=== PATIENT | male | born 1975 | race Caucasian/White ===

== ENCOUNTER 2018-08-21 21:42 | Outpatient (REF) | payer MEDICARE, MEDICAID, SELFPAY ==
[2018-08-21 22:02] LABS: Absolute Eosinophil Count 0.03 k/cumm (0.0-0.7); Absolute Lymphocyte Count 0.81 k/cumm (1.2-3.4); Absolute Monocyte Count 0.31 k/cumm (0.11-0.7); Absolute Neutrophil Count 2.73 k/cumm (1.2-6.7); Eosinophils % 0.8; HCT 41.4 % (40.0-50.0); HGB 13.8 g/dL (13.5-17.5); Lymphocytes % 20.9; Mean Corp. HGB Concentration 33.3 g/dL (32.0-36.0); Mean Corpuscular Hemoglobin 29.8 pg (27.0-33.0); Mean Corpuscular Volume 89.4 fL (80-95); Mean Platelet Volume 11.9 fL (8.0-11.0); Neutrophils % 70.3; Platelet Count 153 x1000/uL (130-400); RBC 4.63 m/cumm (4.50-6.00); RBC Distribution Width 12.8 % (11.8-14.1); White Blood Cell Count 3.88 k/cumm (4.4-10.8)
[2018-08-21 22:23] LABS: ALT 110 U/L (12-78); AST 59 U/L (15-37); Albumin 4.4 g/dL (3.4-5.0); Alkaline Phosphatase 78 U/L (46-116); Anion Gap 7.7 mmol/L (3-11); BUN 11 mg/dL (7-18); Bilirubin, Direct 0.16 mg/dL (0.00-0.20); Bilirubin, Total 0.5 mg/dL (0.2-1.0); CO2 30.3 mmol/L (21.0-32.0); Calcium 8.8 mg/dL (8.5-10.1); Chloride 102 mmol/L (98-107); Glucose 75 mg/dL (70-100); Potassium 3.6 mmol/L (3.5-5.1); Sodium 140 mmol/L (136-145); Total Protein 7.4 g/dL (6.4-8.2)
[2018-08-23 08:29] LABS: Hepatitis C Ab w Rflx HCV PCR Reactive (NEGAT)
== END 2018-08-21 22:02 ==
LOC: NCHCN 21:42
PROVIDERS: PCP Family Medicine; Visit Provider Family Medicine
DX: B17.10 Acute hepatitis C without hepatic coma (principal); F31.81 Bipolar II disorder; R63.4 Abnormal weight loss
CPT/HCPCS: 80053; 80076; 86803; 84443; 85025; 87522

== ENCOUNTER 2018-09-24 15:31 | Outpatient (REF) | payer MEDICARE, MEDICAID, SELFPAY ==
[2018-09-26 11:54] LABS: AFP Tumor Marker 2.6 ng/mL (<8.1)
[2018-09-26 12:27] LABS: HIV-1/2 Ag & Ab Screen Negative (NEGAT)
== END 2018-09-24 15:51 ==
LOC: NCHCN 15:31
PROVIDERS: PCP Family Medicine; Visit Provider Family Medicine
DX: B18.2 Chronic viral hepatitis C (principal); R63.4 Abnormal weight loss
CPT/HCPCS: 87389; 82105

== ENCOUNTER 2023-09-21 19:02 | Outpatient (REF) | payer MEDICARE, MEDICAID, SELFPAY ==
[2023-09-21 21:07] LABS: Anion Gap 11.3 mmol/L (3-11); BUN 12 mg/dL (7-18); CO2 25.7 mmol/L (21.0-32.0); CREATININE 1.1 mg/dL (0.70-1.30); Calcium 9.1 mg/dL (8.5-10.1); Calculated LDL 83 mg/dL (<100); Chloride 104 mmol/L (98-107); Cholesterol 169 mg/dL (<200); Estimated GFR 83.32 (mL/min/1.73m2); Glucose 114 mg/dL (74-106); HDL Cholesterol 70 mg/dL (40-60); Potassium 3.7 mmol/L (3.5-5.1); Sodium 141 mmol/L (136-145); Triglyceride 81 mg/dL (<150)
== END 2023-09-21 19:03 | disposition home or self-care (01) ==
LOC: NCHCN 19:02
PROVIDERS: PCP Family Medicine; Visit Provider Family Medicine
DX: I10 Essential (primary) hypertension (principal); Z13.220 Encounter for screening for lipoid disorders; Z00.00 Encounter for general adult medical examination without abnormal findings
CPT/HCPCS: 80048; 80061

== ENCOUNTER 2024-05-13 16:25 | Outpatient (REF) | payer MEDICARE, MEDICAID, SELFPAY ==
--- OUTSIDE RECORDS SUMMARY | 2024-05-13 16:28 | XMS_ITS ---
Author Name Unknown Address [address] [place] [address] [phone] Phone Organization Unknown Address [address] [place] [address] [phone] Phone Care Team Providers Care Movers Name Role Phone MIA WALKER Attending Unavailable Results PT PROTHROMBIN TIME* - Colle ct Date/Time: 12/26/2022 09:12 [facility] ID: [id number] [address] [place], [place], [address] LOINC: 5902-2 Test Value Unit Reference Range Code Code System Flag PROTIME 13.2 seconds L=9.3 H=11.4 5902-2 LOINC H INR 1.35 L=2.00 H=3.00 11747-7 LOINC L Social History Type Status Start Date End Date Code Code Syst em Smoking History Current every day smoker 050798695 SNOMED CT Sex Male Assessment You had the following problems:DVT OF ARMPULMONARY EMBOLISM Hospital Discharge Instructions Should you have any questions prior to discharge, please contact a member of your healthcare team. If you have left the hospital and have any questions, please contact your primary care physician. Reason For Referral No Data Found Problems Problem Start Date Resolved Date Status Code Code System DVT OF ARM active 910233535 SNOMED-CT PULMONARY EMBOLISM active 01889849 S NOMED-CT Allergies and Adverse Reactions Allergy Substance Reaction Severity Start Date Concern Status Co de Code System GABAPENTIN Hives (SNOMED-CT: 939837696) Moderate Active 42100 RxNorm Plan of Treatment No Data Found Encounters Encounter Diagnosis Start Date Code Code Sys tem Long-term current use of anticoagulant 12/26/2022 71 3709933 SNOMED-CT Personal Care Team Section Performer Name Performer Role Active Date Inactive Da te
--- OUTSIDE RECORDS SUMMARY | 2024-05-13 16:29 | XMS_ITS ---
Author Name Unknown Address [address] [place] [address] [phone] Phone Organization Unknown Address [address] [place] [address] [phone] Phone Care Team Providers Care Asphalt Paving Superintendent Name Role Phone SUNNYRULA DENISE Attending Unavailable Social History Type Status Start Date End Date Code Code Syst em Smoking History Current every day smoker 425805880 SNOMED CT Sex Male Assessment You had [...] Code Code System DVT OF ARM active 858993936 SNOMED-CT PULMONARY EMBOLISM active 73167810 S NOMED-CT Allergies and Adverse Reactions Allergy Substance Reaction Severity Start Date Concern Status Co de Code System GABAPENTIN Hives (SNOMED-CT: 442470490) Moderate Active 57887 RxNorm Plan of Treatment No Data Found Personal Care Team Section Performer Name Performer Role Active Date Inactive Da te
--- OUTSIDE RECORDS SUMMARY | 2024-05-13 16:29 | XMS_ITS ---
Author Name Unknown Address [address] [place] [address] [phone] Phone Organization Unknown Address [address] [place] [address] [phone] Phone Care Team Providers Care Belt Fixer Name Role Phone MARY KATE HOBBS Registered Nurse Unavailable EDDA Amador Attending Unavailable MIA WALKER Primary Unavailable UNLISTED PROVIDER - REQUESTED Xhandoff Un available Results PT PROTHROMBIN TIME* - Colle ct Date/Time: 01/04/2023 14:52 [facility] ID: [id number] [address] [place] [address], [address] LOINC: 5902-2 Test Value Unit Reference Range Code Code System Flag PROTIME 17.8 seconds L=9.3 H=11.4 5902-2 LOINC H INR 1.85 L=2.00 H=3.00 86144-0 LOINC L US DVT UNI RT* - Completed: 01/04/2023 16:16 LOINC: [facility] RADI[facility]Y [place], [place] [address] PACS SWATCH CLERK REPORT Patient Name: OBED MONTAGUE MRN: Sex: : Age: [id number] M [id number] Account: Accession: Admit: StayType: [id number] 01/04/2023 E/R Ordered: Order ID: Submitted: Ordering Provider: 01/04/2023 15:03 [id number] FLOR EDMOND Completed: Technologist: Resulted: 01/04/2023 16:16 GVS 01/04/2023 16:20 Study Description: US DVT UNI RT* Study Reason: Pain TECHNIQUE: Grayscale, color, and doppler imaging of the deep venous system of the right upper extremity was performed. COMPARISON: No exams were available for comparison FINDINGS: There is no evidence of intraluminal thrombus and there is normal compression and augmentation demonstrated within the veins of the right upper extremity. The median cubital vein appears prominent but demonstrated normal flow and compression properties. [Basilic and cephalic systems are patent. Brachial vein also patent. Axillary vein patent. Subclavian vein patent. IMPRESSION: No ultrasound evidence of venous thrombosis in the right upper extremity Report Digitally Signed by Haider Payan on 01/04/2023 04:20 PM EST Social History Type Status Start Date End Date Code Code Syst em Smoking History Current every day smoker 417037802 SNOMED CT Sex Male Vital Signs Vital Sign Value Unit Union Value Union Unit Date/Time Recent/Initial? Code Code System Body Mass Index 23.06 kg/m2 01/04/2023 14:43 Initial 23091 -5 LOINC Systolic Blood Pressure 150 mm[Hg] 01/04/2023 16:48 Most Recent 8480- 6 LOINC Diastolic Blood Pressure 101 mm[Hg] 01/04/2023 16:48 Most Recent 8462- 4 LOINC Systolic Blood Pressure 160 mm[Hg] 01/04/2023 14:43 Initial 8480- 6 LOINC Diastolic Blood Pressure 101 mm[Hg] 01/04/2023 14:43 Initial 8462- 4 LOINC Body Surface Area 1.98 m2 01/04/2023 14:43 Initial 3140- 1 LOINC Height 182.880 0 cm 72.00 in 01/04/2023 14:43 Initial 8302- 2 LOINC O2 Saturation 97 % 02/15/ 2023 16:48 Most Recent 28790 -5 LOINC O2 Saturation 98 % 2022 14:43 Initial 04245 -5 LOINC Pulse 90.0 /min 01/04/2023 16:48 Most Recent 8867- 4 LOINC Pulse 99.0 /min 01/04/2023 14:43 Initial 8867- 4 LOINC Respiration 16 /min 01/04/20 16:48 Most Recent 9279- 1 LOINC Respiration 18 /min 01/04/20 14:43 Initial 9279- 1 LOINC Temperature 36.8 Anne-Marie 98.2 F 01/04/20 16:48 Most Recent 8310- 5 LOINC Temperature 36.7 Anne-Marie 98.1 F 01/04/20 14:43 Initial 8310- 5 LOINC Weight 77.11 kg 170.00 lbs 01/04/2023 14:43 Initial 19625 -7 LOINC Assessment You had the following problems:DVT OF [...] Code Code System DVT OF ARM active 790558514 SNOMED-CT PULMONARY EMBOLISM active 05083749 S NOMED-CT Allergies and Adverse Reactions Allergy Substance Reaction Severity Start Date Concern Status Co de Code System GABAPENTIN Hives (SNOMED-CT: 154573994) Moderate Active 75726 RxNorm Plan of Treatment No Data Found Encounters Encounter Diagnosis Start Date Code Code Sys tem Pain in right arm 01/04/2023 SNOMED-CT Personal Care Team Section Performer Name Performer Role Active Date Inactive Da te
[2024-05-13 21:53] LABS: Anion Gap 8.3 mmol/L (3-11); BUN 14 mg/dL (7-18); CO2 27.7 mmol/L (21.0-32.0); CREATININE 1.1 mg/dL (0.70-1.30); Calcium 9.6 mg/dL (8.5-10.1); Chloride 103 mmol/L (98-107); Estimated GFR 82.81 (mL/min/1.73m2); Glucose 144 mg/dL (74-106); Potassium 4.1 mmol/L (3.5-5.1); Sodium 139 mmol/L (136-145)
== END 2024-05-13 16:26 | disposition home or self-care (01) ==
LOC: NCHCN 16:25
PROVIDERS: PCP Family Medicine; Visit Provider Family Medicine
DX: I10 Essential (primary) hypertension (principal); R63.4 Abnormal weight loss
CPT/HCPCS: 80048; 84443

== ENCOUNTER 2024-09-16 15:22 | Outpatient (REF) | payer MEDICARE, MEDICAID, SELFPAY ==
--- OUTSIDE RECORDS SUMMARY | 2024-09-16 15:26 | XMS_ITS | Clinical Summary ---
Author Organization [facility] Address [address] [place] [address] Care Team Providers Care Tool Planner Name Role Phone Zofia Cruz MD Primary Care Provider [phone] Allergies Active Allergy Reactions Criticality Noted Date Comments Cyclobenzaprine 12/27/2023 Loss of control Valproate Sodium 08/13/2012 Divalproex 07/03/2015 Confused, shakes, pt says yellow and funny looking Gabapentin 06/25/2012 Medications Medication Sig Dispensed Refills Start Date End Date Status clonAZEPAM (KLONOPIN) 2 mg tablet Take 0.5 mg by mouth 2 times daily. Active warfarin (COUMADIN) 5 mg tablet Take 2 Tablets by mouth daily. Take in addition to 1mg tabs for total daily dose of 13mg Active methadone (DOLOPHINE) 10 mg tabletIndications:C hronic hepatitis C without hepatic coma (HCC-CMS) Take 1 Tablet by mouth 2 times daily. Active MEDICAL MARIJUANAIndication s:Chronic hepatitis C without hepatic coma (HCC-CMS) 0.5 g daily Active warfarin (COUMADIN) 1 mg tablet Take 3 Tablets by mouth daily. Take in addition to 10mg tag for at total daily dose of 13mg Active sofosbuvir-velpatas vir 400-100 mg tabletIndications:C hronic hepatitis C without hepatic coma (HCC-CMS) Take 1 Tab by mouth daily. 28 Tab 2 08/31/2020 Active Additional Information Patient not taking.Reported on 2022 docusate sodium (COLACE) 100 mg capsule Take 100 mg by mouth as needed for Constipation. Active losartan (COZAAR) 50 mg tablet Take 1 Tablet by mouth daily. 11/07/2023 Active losartan (COZAAR) 25 mg tablet Take 1 Tablet by mouth daily. 09/09/2023 Active lithium carbonate 150 mg capsule Take 1 Capsule by mouth daily. Active mirtazapine (REMERON) 45 mg tablet Take 1 Tablet by mouth daily. Active morphine (MS CONTIN) 60 mg CR tablet Take 1 Tablet by mouth 3 times daily. Active QUEtiapine (SEROQUEL) 100 mg tablet Take 1 Tablet by mouth daily. Active HYDROcodone-acetami nophen (NORCO) 5-325 mg tablet Take 1 Tablet by mouth every 6 hours. Daily Max: 4 Tablets 10 Tablet 08/27/2024 Active Active Problems Problem Noted Date Diagnosed Date Thrombophilia ([facility]) 12/27/2023 Factor V Leiden ([facility]) 12/27/2023 Antiphospholipid syndrome ([facility]) 12/27/2023 Generalized anxiety disorder 12/27/2023 Insomnia 12/27/2023 Restless legs 12/27/2023 Visual disturbance 12/27/2023 Essential hypertension 12/27/2023 Mitral valve regurgitation 12/27/2023 Disorder of intervertebral disc of cervical spin e 12/27/2023 Spinal stenosis of lumbar region 12/27/2023 Seizure ([facility]) 12/27/2023 Amnesia 12/27/2023 Ataxia 12/27/2023 Paresthesia 12/27/2023 Palpitations 12/27/2023 High glucose level 12/27/2023 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 Single intersegmental PE; Lovenox to warfarin x 6 months. 2) Thrombosis panel: Factor V Leiden heterozygote and lupus anticoagulant documented off warfarin 07/2012. D-dimer <200 3) Family hx of FVL and VTE. Mother with FVL and hormone provoked PE. Mother's aunt had VTE. Mother's dad and mom also had VTE Encounters Date Type Department Care Team Description 08/27/2024 14:44 EDT - 08/27/2024 18:28 EDT Emergency [facility] [address] [place] [address] Hemarthrosis of right hip (Primary Dx) Discharge Disposition: Home or Self Care 08/27/2024 Travel 06/19/2024 12:35 EDT - 06/19/2024 14:01 EDT Emergency [facility] [address] [place] [address] Contusion of left elbow, initial encounter (Primary Dx) Discharge Disposition: Home or Self Care 06/19/2024 Travel from Last 3 Months Immunizations Name Administration Dates Next Due Covid-19 mRNA Vaccine (MODER NA COVID-19) PF 0.5 ml IM (12 yrs+) 10/27/2021,04/23/2021,03/24/2021 Hepatitis A 07/15/2015 Hepatitis B 08/12/2020, 0,02/28/2020, 015,07/15/2015 Influenza (split) 08/18/2021, 0,09/13/2019, 017,08/19/2015,09/02/2014,10/24/2013,06/2012 Td 05/22/2008 Tdap Vaccine =>7YO IM 06/20/2020,01/01/2013 Surgical History Surgery Date Site/Laterality Comments FINGER AMPUTATION Left tip of 4th digit TONSILLECTOMY 1st grade Medical History Medical History Date Comments Bipolar 1 disorder (HCC-CMS) H/O: substance abuse (HCC-CMS) Heterozygous factor V Leiden mutation (HCC-CMS) Pulmonary embolism (HCC-CMS) 12/21/2011 not confirmed Lumbar nerve root injury Panic disorder 06/27/2012 Spinal stenosis Clotting disorder (HCC-CMS) Jaundice Depression Essential hypertension 12/27/2023 Mitral valve regurgitation 12/27/2023 Seizure (HCC-CMS) 12/27/2023 Amnesia 12/27/2023 Ataxia 12/27/2023 Paresthesia 12/27/2023 Pulmonary embolism and infarction (HCC-CMS) TIA (transient ischemic attack) TBI (traumatic brain injury) ([facility]) group home (current) use of anticoagulants 2023 Non-rheumatic mitral valve disease 12/27/2023 Family History Medical History Relation Comments Alcohol Abuse Brother Depression Brother Mental Illness Brother Substance Abuse Brother Alcohol Abuse Father Diabetes Father Substance Abuse Father Clotting Disorder Maternal Aunt FVL Heart Disease Maternal Aunt Clotting Disorder Mother FVL, hormone p rovoked PE Diabetes Mother Heart Disease Mother High Blood Pressure Mother Diabetes Son type 1 Relation Status Comments Brother Father Maternal Aunt Mother Son Alive Social History Tobacco Use Types Packs/Day Years Used Date Smoking Tobacco: Former Cigarettes 0.5 15 1 2012 Smokeless Tobacco: Current Tobacco Cessation:Ready to Q uit: Not Asked; Counseling Given: Not Answered Comments:pt has lozenges to quit smoking Alcohol Use Standard Drinks/Week Comments Yes 3 (1 standard drink = 0.6 oz pur e alcohol) Drink 1 - 3 beers infrequently Interpersonal Safety Answer Date Record ed Physically Hurt Never 06/21/2020 Verbally Threaten Not on file 06/21/2020 Sex and Gender Information Value Date Recorded Sex Assigned at Not on file Gender Identity Male 01/13/2020 13:38 EST Sexual Orientation Not on file Obstetrics History Last Filed Vital Signs Vital Sign Reading Time Taken Comments Blood Pressure 136/76 08/27/2024 1804 EDT Pulse 66 08/27/2024 1804 EDT Temperature 36.6 ??C (97.8 ??F) 08/27/2024 1423 EDT Respiratory Rate 16 08/27/2024 1804 EDT Oxygen Saturation 96% 08/27/2024 1804 EDT Inhaled Oxygen Concentration - - Weight 80.4 kg (177 lb 3.2 oz) 08/27/2024 1423 E DT Height 182.9 cm (6') 06/28/2023 1853 EDT Body Mass Index 24.03 06/28/2023 1853 EDT Plan of Treatment Health Maintenance Due Date Last Done Comments Pneumococcal Immunization (1 of 2 - PCV) 1981 COVID-19 Vaccine (2023-2 5 season) 2024 10/27/2021, 04/23/2021, 03/24/2021 Hepatitis B Vaccine Completed 08/12/2020, 05/20/2020, 02/28/2020, Additional history exists Hepatitis C Screen Completed 10/23/2020, 0 01/13/2020, 10/11/2019, Additional history exists Procedures Procedure Name Priority Date/Time Associated Diagnosis Comments PROTIME STAT 08/27/2024 17:[address] ABDOMEN PELVIS W CONTRAST STAT 08/27/2024 16:16 EDT BASIC METABOLIC PANEL (BMP) STAT 08/27/2024 15:55 EDT COMPLETE BLOOD COUNT AND DIFFERENTIAL STAT 08/27/2024 15:55 EDT XR ELBOW LEFT 3 OR MORE VIEWS STAT 06/19/2024 13:18 EDT HCV RNA DETECT QUANT Routine 10/23/2020 8:24 EST from Last 3 Months or Most Recently Relevant to Health Maintenance Results * (ABNORMAL) PROTIME (08/27/2024 17:46 EDT) I.N.R. 5.5(HH) 0.9 - 1.1 Ratio 08/27/2024 18:10 EDT [facility] Pro Time 59.9(H) 9.7 - 12.8 secs 08/27/2024 18:10 EDT [facility] Blood VENOUS BLOOD / Unknown Venipuncture / Unknown 08/27/2024 17:46 EDT 08/27/2024 17:48 EDT Narrative [facility] - 08/27/2024 18:10 EDT Moderate Intensity Coumadin INR = 2.0-3.0 Adjustments in anticoagulant therapy dose should be based on the INR and NOT on the Protime. Cleopatra Lopez PA-C HEMATOLOGY & PF4 OR DERABLES [facility] [address] [place] [address] * CT ABDOMEN PELVIS W CONTRAST (08/27/2024 16:16 EDT) Anatomical Region Laterality Modality Body, Abdomen, Pelvis, Abdomen and Pelvis Computed Tomography 08/27/2024 16:0 7 EDT Impressions 08/27/2024 17:00 EDT Moderate to large right hip joint effusion noted. No evidence of an inguinal hernia. THIS DOCUMENT HAS BEEN ELECTRONICALLY SIGNED BY RAAD HAMILTON MD FOR ANY QUESTIONS OR CONCERNS REGARDING THIS REPORT PLEASE CALL [facility] AT [phone] Narrative 08/27/2024 17:00 EDT PROCEDURE INFORMATION: Exam: CT Abdomen And Pelvis With Contrast Exam date and time: 08/27/2024 4:07 PM Age: 48 years old Clinical indication: Abdominal pain; Localized; Other: Right groin pain after lifting TECHNIQUE: Imaging protocol: Computed tomography of the abdomen and pelvis with contrast. Radiation optimization: All CT scans at this facility use at least one of these dose optimization techniques: automated exposure control; mA and/or kV adjustment per patient size (includes targeted exams where dose is matched to clinical indication); or iterative reconstruction. Contrast material: OMNI 350; Contrast volume: 100 ml; Contrast route: INTRAVENOUS (IV); ?? COMPARISON: CTA CHEST PE PROTOCOL 03/15/2018 12:56 PM FINDINGS: Liver: Normal. No mass. Gallbladder and biliary ducts: Normal. No calcified stones. No ductal dilation. Pancreas: Normal. No ductal dilation. Spleen: Normal. No splenomegaly. Adrenal glands: Normal. No mass. Kidneys and ureters: Normal. No hydronephrosis. Stomach and bowel: Unremarkable. No obstruction. No mucosal thickening. Appendix: No evidence of appendicitis. Intraperitoneal space: Unremarkable. No free air. No significant fluid collection. Vasculature: Unremarkable. No abdominal aortic aneurysm. Lymph nodes: Unremarkable. No enlarged lymph nodes. Urinary bladder: Unremarkable as visualized. Reproductive: Unremarkable as visualized. Bones/joints: ??Moderate to large right hip joint effusion with bilateral moderate hip DJD noted, slightly greater on the right. No acute fracture. Soft tissues: There is a small fat-containing umbilical hernia. ?? No evidence of an inguinal hernia or other specific abnormality in the right groin. Procedure Note Raad Hamilton MD - 08/27/2024 PROCEDURE INFORMATION: Exam: CT Abdomen And Pelvis With Contrast Exam date and time: 08/27/2024 4:07 PM Age: 48 years old Clinical indication: Abdominal pain; Localized; Other: Right groin pain after lifting TECHNIQUE: Imaging protocol: Computed tomography of the abdomen and pelvis with contrast. Radiation optimization: All CT scans at this facility use at least one of these dose optimization techniques: automated exposure control; mA and/or kV adjustment per patient size (includes targeted exams where dose is matched to clinical indication); or iterative reconstruction. Contrast material: OMNI 350; Contrast volume: 100 ml; Contrast route: INTRAVENOUS (IV); COMPARISON: CTA CHEST PE PROTOCOL 03/15/2018 12:56 PM FINDINGS: Liver: Normal. No mass. Gallbladder and biliary ducts: Normal. No calcified stones. No ductal dilation. Pancreas: Normal. No ductal dilation. Spleen: Normal. No splenomegaly. Adrenal glands: Normal. No mass. Kidneys and ureters: Normal. No hydronephrosis. Stomach and bowel: Unremarkable. No obstruction. No mucosal thickening. Appendix: No evidence of appendicitis. Intraperitoneal space: Unremarkable. No free air. No significant fluid collection. Vasculature: Unremarkable. No abdominal aortic aneurysm. Lymph nodes: Unremarkable. No enlarged lymph nodes. Urinary bladder: Unremarkable as visualized. Reproductive: Unremarkable as visualized. Bones/joints: Moderate to large right hip joint effusion with bilateral moderate hip DJD noted, slightly greater on the right. No acute fracture. Soft tissues: There is a small fat-containing umbilical hernia. No evidence of an inguinal hernia or other specific abnormality in the right groin. IMPRESSION Moderate to large right hip joint effusion noted. No evidence of an inguinal hernia. THIS DOCUMENT HAS BEEN ELECTRONICALLY SIGNED BY RAAD HAMILTON MD FOR ANY QUESTIONS OR CONCERNS REGARDING THIS REPORT PLEASE CALL [facility] [phone] Cleopatra Lopez PA-C [facility] CT ORDERABLES * COMPLETE BLOOD COUNT AND DIFFERENTIAL (08/27/2024 15:55 EDT) WBC 7.40 4.00 - 10.40 K/cmm 08/27/2024 16:02 EDT [facility] RBC 4.62 4.36 - 5.78 M/cmm 08/27/2024 16:02 EDT [facility] Hemoglobin 14.4 13.8 - 17.3 g/dL 08/27/2024 16:02 [facility] HCT 41.0 39.5 - 50.2 % 08/27/2024 16:02 [facility] MCV 89 81 - 95 fL 08/27/2024 16:02 [facility] MCH 31.2 27.6 - 33.0 pg 08/27/2024 16:02 [facility] MCHC 35.1 32.8 - 36.4 g/dL 08/27/2024 16:02 [facility] RDW-CV 12.6 <14.2 % 08/27/2024 16:02 [facility] RDW-SD 40.9 <46.0 fl 08/27/2024 16:02 [facility] PLT 223 141 - 377 K/cmm 08/27/2024 16:02 [facility] MPV 9.5 9.5 - 12.7 fL 08/27/2024 16:02 [facility] % Neutrophils 69.1 Not Indicated % 08/27/2024 16:02 [facility] % Lymphocytes 18.9 Not Indicated % 08/27/2024 16:02 [facility] % Monocytes 8.1 Not Indicated % 08/27/2024 16:02 [facility] % Eosinophils 3.5 Not Indicated % 08/27/2024 16:02 [facility] % Basophils 0.3 Not Indicated % 08/27/2024 16:02 [facility] % Immature Grans 0.1 <0.9 % 08/27/2024 16:02 [facility] Absolute Neutrophils 5.11 2.20 - 8.85 K/cmm 08/27/2024 16:02 [facility] Absolute Lymphocytes 1.40 1.09 - 3.30 K/cmm 08/27/2024 16:02 [facility] Absolute Monocytes 0.60 0.10 - 0.80 K/cmm 08/27/2024 16:02 [facility] Absolute Eosinophils 0.26 0.03 - 0.61 K/cmm 08/27/2024 16:02 [facility] ABS Basophils 0.02 0.01 - 0.11 K/cmm 08/27/2024 16:02 [facility] Absolute Immature Grans 0.01 0.00 - 0.06 K/cmm 08/27/2024 16:02 [facility] Type of Differential: Auto 08/27/2024 16:02 [facility] Blood VENOUS BLOOD / Unknown Venipuncture / Unknown 08/27/2024 15:55 EDT 08/27/2024 15:59 EDT Cleopatra Lopez PA-C PACKAGES & DNA PROB E ORDERABLES Performing Organization Address City/State/[facility] Co de Phone Number [facility] [address] [place] [address] * BASIC METABOLIC PANEL (BMP) (08/27/2024 15:55 EDT) Sodium 136 136 - 145 mmol/L 08/27/2024 16:19 [facility] Potassium 4.9 3.5 - 5.0 mmol/L 08/27/2024 16:19 [facility] Comment:Slight hemolysis aurelia ntified, interpret with caution as hemolysis will elevate potassium result. Chloride 99 96 - 110 mmol/L 08/27/2024 16:19 [facility] CO2 Total 30 22 - 32 mmol/L 08/27/2024 16:19 [facility] Anion Gap 7 5 - 14 mmol/L 08/27/2024 16:19 [facility] Glucose 91 70 - 99 mg/dl 08/27/2024 16:19 [facility] Calcium 9.3 8.5 - 10.5 mg/dL 08/27/2024 16:19 [facility] BUN 13 10 - 26 mg/dL 08/27/2024 16:19 EDT [facility] Comment: Slight hemolysis identified, interpret with caution as results may be affected due to hemolysis. Creatinine 0.83 0.66 - 1.25 mg/dL 08/27/2024 16:19 EDT [facility] eGFR 108 >60 mL/min/1.7 3m2 08/27/2024 16:19 EDT [facility] Blood VENOUS BLOOD / Unknown Venipuncture / Unknown 08/27/2024 15:55 EDT 08/27/2024 15:59 EDT Cleopatra Lopez PA-C CHEMISTRY & BLOOD G ORDERABLES [facility] [address] [place] [address] * XR ELBOW LEFT 3 OR MORE VIEWS (06/19/2024 13:18 EDT) Anatomical Region Laterality Modality Left Computed Radiogr aphy 06/19/2024 13:3 4 EDT Impressions 06/19/2024 13:34 EDT No acute findings. [id number] Narrative 06/19/2024 13:34 EDT XR ELBOW LEFT 3 OR MORE VIEWS ?? Signs and Symptoms/Comments: ??elbow pain Comparison: None. FINDINGS: Left elbow: 4 views. Bones: No acute fracture or malalignment. Degenerative changes: No significant degenerative changes. Soft tissues: Possible tiny smooth calcified osteochondral loose body in the posterior recess of the elbow. No elbow joint effusion visible. Resulting Agency Comment [id number] Procedure Note Diego Perry MD - 06/19/2024 XR ELBOW LEFT 3 OR MORE VIEWS Signs and Symptoms/Comments: elbow pain Comparison: None. FINDINGS: Left elbow: 4 views. Bones: No acute fracture or malalignment. Degenerative changes: No significant degenerative changes. Soft tissues: Possible tiny smooth calcified osteochondral loose body inthe posterior recess of the elbow. No elbow joint effusion visible. IMPRESSION No acute findings. [id number] Vanna Mckeon PA-C [facility] ORDERABLES * HCV RNA DETECT QUANT (10/23/2020 8:24 EST) HCV RNA Qualitative Undetected Undetected 10/26/2020 13:40 EST [facility] Blood VENOUS BLOOD / Unknown 10/23/2020 8:24 EST 10/23/2020 22:03 EST Narrative [facility] - 10/26/2020 13:40 EST The quantification range of this assay is 15 IU/mL to 100,000,000 IU/mL. ??Testing was performed on the ANTONELLA Ampliprep/ANTONELLA TaqMan HCV v2.0 ([employer] Provider Outr Resulting Lab CHEMISTRY & BLOOD GAS ORDERABLES [facility] [address] [place] [address] from Last 3 Months or Most Recently Relevant to Health Maintenance Care Teams Tool Planner Relationship Specialty Start Date End Date Zofia Cruz MD [address] [place] [id number] PCP - General 06/28/23
--- OUTSIDE RECORDS SUMMARY | 2024-09-16 15:26 | XMS_ITS | Encounter Summary ---
Author Organization [facility] Address [address] [place] [address] Care Team Providers Care Residential Advisor Name Role Phone Zofia Cruz MD Primary Care Provider [phone] Reason for Visit * Reason Comments Coagulation Disorder Pt has coag disorde rs. No Injury to left arm, swelling started to left arm and hand this morning. Concerns for blood clots. INR 1.1 about a week ago. Encounter Details Date Type Department Care Team (Late st Contact Info) Description 06/28/2023 18:56 EDT - 06/28/2023 20:21 EDT Emergency [facility] Emergency Department [address] [place] [address] Leonidas Abraham DO [address] [place] [address] Left hand pain (Primary Dx) Discharge Disposition: Home or Self Care Social History Tobacco Use Types Packs/Day Years Used Date Smoking Tobacco: Former Cigarettes 0.5 15 1 - 2012 Smokeless Tobacco: Current Comments:pt has lozenges to quit smoking Alcohol Use Standard Drinks/Week Comments No 0 (1 standard drink = 0.6 oz pur e alcohol) Interpersonal Safety Answer Date Record ed Physically Hurt Never 06/21/2020 Verbally Threaten Not on file 06/21/2020 Sex and Gender Information Value Date Recorded Sex Assigned at Not on file Gender Identity Male 01/13/2020 13:38 EST Sexual Orientation Not on file documented as of this encounter Last Filed Vital Signs Vital Sign Reading Time Taken Comments Blood Pressure 159/108 06/28/2023 1902 EDT Pulse 82 06/28/2023 1902 EDT Temperature 36.5 ??C (97.7 ??F) 06/28/20231852 EDT Respiratory Rate 17 06/28/20231901 EDT Oxygen Saturation 98% 06/28/20231901 EDT Inhaled Oxygen Concentration - - Weight 89.2 kg (196 lb 11.2 oz) 06/28/20231852 EDT Height 182.9 cm (6') 06/28/20231852 EDT Body Mass Index 26.68 06/28/20231852 EDT documented in this encounter Functional Status Functional Status Response Date of Assess ment Are you deaf or do you have serious difficulty h earing? No 09/26/2022 Because of a physical, menta l, or emotional condition, does this person have difficulty doing errands alone such as visiting a doctor's office or shopping? Yes 2022 Cognitive Status Response Date of Assessm ent Because of a physical, menta l, or emotional condition, does this person have serious difficulty concentrating, remembering, or making decisions? Yes 2022 documented as of this encounter Discharge Instructions * Discharge Instructions* Lee Chen MD MPH - 06/28/2023 20:15 EDT You were seen today in the ED for left hand pain and swelling. We performed a physical exam, discussed your symptoms, and performed an x-ray, PT/INR, and left upper extremity ultrasound. We did not find any fracture, blood clot, anterior INR was 2.4. All of this is reassuring and we believe it is safe for you to be discharged at this time. I recommend you continue to follow with your primary care, and take your warfarin as prescribed. Please be sure to discuss this recent ED visit with your primary care provider. Please know that when you're in the emergency department, we only see a snapshot of your clinical picture. Even though we are comfortable discharging you home at this time, I recommend that you return to the emergency department if you develop any worsening of your symptoms, or any new or unexpected symptoms. Thank you for receiving your care at [facility]! * Attachments The following attachments cannot be sent through Care Everywhere. * Hand Pain (Portuguese) documented in this encounter Medications at Time of Discharge Medication Sig Dispensed Refills Start Date End Date clonAZEPAM (KLONOPIN) 2 mg tablet Take 0.5 mg by mouth 2 times daily. docusate sodium (COLACE) 100 mg capsule Take 100 mg by mouth as needed for Constipation. 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 sofosbuvir-velpatasvir 400-100 mg tabletIndications:Chronic hepatitis C without hepatic coma (HCC-CMS) Take 1 Tab by mouth daily. 28 Tab 2 08/31/2020 warfarin (COUMADIN) 1 mg tablet Take 3 Tablets by mouth daily. Take in addition to 10mg tag for at total daily dose of 13mg warfarin (COUMADIN) 5 mg tablet Take 2 Tablets by mouth daily. Take in addition to 1mg tabs for total daily dose of 13mg documented as of this encounter Discharge Disposition Disposition Code Departure Means Destination Comment s Home or Self Intermediate documented in this encounter ED Notes * Lee Chen MD MPH - 06/28/20231948 EDT Emergency Department Visit Medical Decision Making Patient evaluated at bedside with girlfriend present. In summary, 47 y.o. male with PMH significantfor HCV, hypercoagulation disorder on warfarin presenting to the ED for left hand and arm swelling.Started 2 days ago with acute pain in the left dorsal hand, and pain with movement and gripping with his left hand, no trauma prior. No similar previous symptoms, had a PE unprovoked in 2011 and has been on anticoagulation since then. Is heterozygous for factor V Leiden and has lupus anticoagulation factor. Recent INR check outpatient was 1.1, and started higher dose of warfarin several days ago.Denies pleuritic chest pain, dyspnea, shoulder pain, decreased range of motion in his left arm, recent surgery, prolonged immobilization. Does have paresthesias that have been occurring prior to thisin his left arm, not currently worse. Physical exam pertinent for tenderness palpation over dorsal left hand, with 5/5 contract administration manager strength, bilateral elbow flexion and extension, wrist flexion extension, and deltoids. Mild swelling in left hand and forearm. No erythema, warmth, or fluctuance over this area. No snuffbox tenderness on left. I considered a broad differential for this patient, including but not limited to DVT, fracture, dislocation, hematoma, cellulitis, myositis, abscess, septic arthritis, osteomyelitis, strain, sprain, and soft tissue contusion. To evaluate for these, will order left upper extremity duplex ultrasound,left hand x-ray, and PT/INR. Low concern for infectious or traumatic etiology given lack of trauma to the area, lack of constitutional symptoms, and clinical exam more consistent with DVT. Will continue to monitor in the ED and reevaluate after testing returns or sooner if needed. Relevant Data as of 06/28/232015Jun 28, 20231918 History and exam reviewed with resident physician. I have also independently performed my own history and physical examination. Agree with differential diagnosis, orders, work-up and treatment plan. Leonidas Abraham D.O. [AF] 2012 Upon independent review, left hand x-ray demonstrates soft tissue swelling, but no apparent fracture. [LW] 2013 Venous duplex of left upper extremity reassuring, no evidence of DVT [LW] 2013 Upon reexamination, patient continues to feel well, no worsening of symptoms since arrival to the emergency department. Discussed results with him including INR of 2.4, and he is reassured by this finding after increasing his warfarin dose. Discussed that we are comfortable discharging him home at this time, And that we have not found acute pathology requiring him to stay for further evaluation. Patient understands and agrees with this plan including discharge. Usual and customary precautions were reviewed with the patient including follow- up instructions dominiques to return to the Emergency Department if condition worsens, does not improve as expected, or other new concerns arise. Patient understood and agreed with this plan, and all questions were answered. [LW] Relevant Data User Index [AF] Leonidas Abraham DO [LW] Lee Chen MD MPH Laboratory data was reviewed. MDM Final diagnoses: Left hand pain Disposition: Discharged Chief complaint: Left hand swelling ENOC Solomon is a 47 y.o. male with past medical history significant for HCV, hypercoagulation disorder on warfarin presenting to the ED for left hand and arm swelling. Started 2 days ago with acute pain in the left dorsal hand, and pain with movement and gripping with his left hand, no trauma prior. No similar previous symptoms, had a PE unprovoked in 2012 and has been on anticoagulation sincethen. Is heterozygous for factor V Leiden and has lupus anticoagulation factor. Recent INR check outpatient was 1.1, and started higher dose of warfarin several days ago. Denies pleuritic chest pain,dyspnea, shoulder pain, decreased range of motion in his left arm, recent surgery, prolonged immobilization. Does have paresthesias that have been occurring prior to this in his left arm, not currently worse. Only current medication is warfarin. History was provided by: Patient, girlfriend, EHR Records reviewed include: Neurology office visit note 10/06/22 Patient's pertinent PMH, FH, SH were reviewed and edited as necessary. Nursing notes reviewed. A medical screening exam was performed. Physical Exam BP (!) 159/108 (BP Cuff Location: Right arm, BP Patient Position: Sitting) Pulse 82 Temp 36.5 ??C (97.7 ??F) (Oral) Resp 17 Ht 182.9 cm (72) Wt 89.2 kg (196 lb 11.2 oz) SpO2 98% BMI 26.68 kg/m?? Physical Exam General: Alert and oriented, no acute distress. Well developed, well nourished Head: Normocephalic, atraumatic Eyes: EOM intact, sclera anicteric, no conjunctival pallor Ears: External ears normal, hearing intact to voice Nose: No discharge or deformities Mouth: Moist mucus membranes, no exudates or pharyngeal erythema Heart: Regular rate and rhythm Lungs: Normal work of breathing. No wheezing, stridor, or accessory muscle use. Abdomen: Nondistended, no peritoneal signs or masses Extremities: Peripheral pulses 2+ present, no clubbing or cyanosis MSK: Tenderness to palpation over left dorsal hand without erythema, fluctuance, swelling, or snuffbox tenderness. Mild edema in left hand and forearm. Capillary refill less than 2 seconds distal to tenderness and swelling, and bilateral radial pulses present 2+. Neuro: Alert and oriented X4. CN II-XII grossly intact. Freely moves all extremities, speech is normal without evidence of aphasia or dysphonia. Gait is normal without ataxia. Bilateral upper extremity strength including deltoids, biceps, triceps, contract administration manager, interosseous 5/5 strength, sensation intact to light touch bilaterally C5-T2. Skin: [place], warm, and dry. No rashes, lesions, or ecchymosis Psych: Normal mood and affect, normal behavior Procedures Procedures * Fabiana Vasquez RN - 06/28/2023 1944 EDT Blood drawn via right AC per protocol, tube(s) sent to lab per order. documented in this encounter Plan of Treatment Not on file documented as of this encounter Procedures Procedure Name Priority Date/Time Associated Diagnosis Comments XR HAND LEFT 3 OR MORE VIEWS STAT 06/28/2023 20:00 EDT US UPPER VENOUS DUPLEX (DVT) LEFT STAT 06/28/2023 19:58 EDT PROTIME STAT 06/28/2023 19:38 EDT documented in this encounter Results * XR HAND LEFT 3 OR MORE VIEWS (06/28/2023 20:00 EDT) Anatomical Region Laterality Modality Upper Extremities Left Computed Radio graphy 06/28/2023 19:5 4 EDT Impressions 06/28/2023 20:07 EDT 1. ?? No acute osseous abnormality. 2. ?? There is soft tissue swelling present. THIS DOCUMENT HAS BEEN ELECTRONICALLY SIGNED BY JAROCHO MORENO MD FOR ANY QUESTIONS OR CONCERNS REGARDING THIS REPORT PLEASE CALL [facility] AT [phone] Narrative 06/28/2023 20:07 EDT PROCEDURE INFORMATION: Exam: XR Left Hand Exam date and time: 06/28/2023 7:54 PM Age: 47 years old Clinical indication: Pain; Hand; Left; Additional info: Dorsal hand pain and swelling. Hypercoagulable disorder TECHNIQUE: Imaging protocol: Radiologic exam of the left hand. Views: 3 or more views. COMPARISON: US UPPER VENOUS DUPLEX (DVT) LEFT 06/28/2023 7:36 PM FINDINGS: Bones/joints: There is a partial amputation of the 4th distal finger.Bone mineralization is age-appropriate. There is no evidence of fracture. No evidence of dislocation. The joint spaces are adequately preserved; no significant degenerative narrowing and no bony erosion seen. Soft tissues: No radiopaque foreign body present. There is soft tissue swelling present. Procedure Note Jarocho Moreno MD - 06/28/2023 PROCEDURE INFORMATION: Exam: XR Left Hand Exam date and time: 06/28/2023 7:54 PM Age: 47 years old Clinical indication: Pain; Hand; Left; Additional info: Dorsal hand pain and swelling. Hypercoagulable disorder TECHNIQUE: Imaging protocol: Radiologic exam of the left hand. Views: 3 or more views. COMPARISON: US UPPER VENOUS DUPLEX (DVT) LEFT 06/28/2023 7:36 PM FINDINGS: Bones/joints: There is a partial amputation of the 4th distal finger.Bone mineralization is age-appropriate. There is no evidence of fracture. No evidence of dislocation. The joint spaces are adequately preserved; no significant degenerative narrowing and no bony erosion seen. Soft tissues: No radiopaque foreign body present. There is soft tissue swelling present. IMPRESSION 1. No acute osseous abnormality. 2. There is soft tissue swelling present. THIS DOCUMENT HAS BEEN ELECTRONICALLY SIGNED BY JAROCHO MORENO MD FOR ANY QUESTIONS OR CONCERNS REGARDING THIS REPORT PLEASE CALL [facility] [phone] Lee Chen MD MPH IMG DIAGNOSTIC IMAG ING ORDERABLES * US UPPER VENOUS DUPLEX (DVT) LEFT (06/28/2023 19:58 EDT) Anatomical Region Laterality Modality Vascular Ultrasound 06/28/2023 19:3 6 EDT Impressions 06/28/2023 20:08 EDT No evidence of deep vein thrombosis. THIS DOCUMENT HAS BEEN ELECTRONICALLY SIGNED BY JAROCHO MORENO MD FOR ANY QUESTIONS OR CONCERNS REGARDING THIS REPORT PLEASE CALL [facility] AT [phone] Narrative 06/28/2023 20:08 EDT PROCEDURE INFORMATION: Exam: US Duplex Left Upper Extremity Veins, Limited Exam date and time: 06/28/2023 7:36 PM Age: 47 years old Clinical indication: Edema, localized; Upper extremity, left; Additional info: New left upper extremity swelling, previous blood clot TECHNIQUE: Imaging protocol: Real-time duplex ultrasound of the left extremity with 2-D troncoso scale, color Doppler flow and spectral waveform analysis including responses to compression and other maneuvers (when performed) with image documentation. Limited exam focused on the left upper extremity veins. COMPARISON: US DOPPLER CAROTID-BILATERAL 03/27/2018 11:24 AM FINDINGS: Left deep veins: Unremarkable. Axillary and brachial veins are patent throughout without thrombus. Normal Doppler waveforms. Normal compressibility and/or augmentation response. Visualized internal jugular and subclavian veins are patent. Superficial veins: Unremarkable. Visualized cephalic and basilic veins are patent without thrombus. ?? Soft tissues: Unremarkable. Procedure Note Jarocho Moreno MD - 06/28/2023 PROCEDURE INFORMATION: Exam: US Duplex Left Upper Extremity Veins, Limited Exam date and time: 06/28/2023 7:36 PM Age: 47 years old Clinical indication: Edema, localized; Upper extremity, left; Additional info: New left upper extremity swelling, previous blood clot TECHNIQUE: Imaging protocol: Real-time duplex ultrasound of the left extremity with 2-D troncoso scale, color Doppler flow and spectral waveform analysis including responses to compression and other maneuvers (when performed) with image documentation. Limited exam focused on the left upper extremity veins. COMPARISON: US DOPPLER CAROTID-BILATERAL 03/27/2018 11:24 AM FINDINGS: Left deep veins: Unremarkable. Axillary and brachial veins are patent throughout without thrombus. Normal Doppler waveforms. Normal compressibility and/or augmentation response. Visualized internal jugular and subclavian veins are patent. Superficial veins: Unremarkable. Visualized cephalic and basilic veins are patent without thrombus. Soft tissues: Unremarkable. IMPRESSION No evidence of deep vein thrombosis. THIS DOCUMENT HAS BEEN ELECTRONICALLY SIGNED BY JAROCHO MORENO MD FOR ANY QUESTIONS OR CONCERNS REGARDING THIS REPORT PLEASE CALL [facility] [phone] Lee Chen MD MPH IMG US VASCULAR ORD ERABLES * (ABNORMAL) PROTIME (06/28/2023 19:38 EDT) I.N.R. 2.4(H) 0.9 - 1.1 Ratio 06/28/2023 19:[address] [facility] Pro Time 28.0(H) 9.7 - 12.8 secs 06/28/2023 19:[address] [facility] Blood VENOUS BLOOD / Unknown Venipuncture / Unknown 06/28/2023 19:38 EDT 06/28/2023 19:[address] [facility] - 06/28/2023 19:56 EDT Moderate Intensity Coumadin INR = 2.0-3.0 Adjustments in anticoagulant therapy dose should be based on the INR and NOT on the Protime. Lee Chen MD MPH HEMATOLOGY & PF4 OR DERABLES [facility] [address] [place] [address] documented in this encounter Visit Diagnoses Diagnosis Left hand pain- Primary Pain in limb documented in this encounter Orders Nursing Count Last Ordered Date First Orde red Date PAGE DI TECH-ULTRASOUND 1 06/28/2023 documented in this encounter Care Teams Residential Advisor Relationship Specialty Start Date End Date Zofia Cruz MD [address] [place] [phone] PCP - General 06/28/23 documented as of this encounter
--- OUTSIDE RECORDS SUMMARY | 2024-09-16 15:26 | XMS_ITS | Encounter Summary ---
Author Organization [facility] Address [address] [place] [address] Care Team Providers Care Detective Lieutenant Name Role Phone Nicole Velasquez MD Primary Care Provider [phone] Reason for Visit * Reason Onset Date Comments Other 04/12/2021 Encounter Details Date Type Department Care Team (Late st Contact Info) Description 04/12/2021 Telephone [facility] Gastroenterology - [address] [id number] Jarocho Kennedy MD PhD [address] [place] [address], [address] [place] [address] Other Social History Tobacco Use Types Packs/Day Years Used Date Smoking Tobacco: Former Cigarettes 0.5 15 1 2012 Smokeless Tobacco: Current Comments:pt has lozenges [...] on file documented as of this encounter Functional Status Functional Status Response Date of Assess ment Because of a physical, menta l, or emotional condition, does this person have difficulty doing errands alone such as visiting a doctor's office or shopping? Yes 07/03/2015 Cognitive Status Response Date of Assessm ent Because of a physical, menta l, or emotional condition, does this person have serious difficulty concentrating, remembering, or making decisions? No 07/03/2015 documented as of this encounter Miscellaneous Notes * Telephone Encounter - Tiki Scott - 04/12/2021 1222 EDT Emailed to patient: Jose Wilkins: Multiple attempts have been made to contact you by phone to schedule an appointment for you with . You could not be reached by phone, as your mailbox was either full, not accepting calls and one number has been disconnected. Please call [phone] to schedule this appointment. documented in this encounter Plan of Treatment Not on file documented as of this encounter Visit Diagnoses Not on filedocumented in this encounter Care Teams Detective Lieutenant Relationship Specialty Start Date End Date Nicole Velasquez MD [address] [address] PCP - General 01/13/20 06/27/23 documented as of this encounter
--- OUTSIDE RECORDS SUMMARY | 2024-09-16 15:26 | XMS_ITS | Encounter Summary ---
Author Organization [facility] Address [address] [place] [address] Care Team Providers Care Hole Puncher Strap Name Role Phone Nicole Velasquez MD Primary Care Provider [phone] Encounter Details Date Type Department Care Team (Late st Contact Info) Description 03/30/2021 Specialty Pharmacy [facility] - [facility] [address] [place] [address] Felicitas Rodriguez [facility] [address] [place], [place] [id number] Social History Tobacco Use Types Packs/Day Years Used Date Smoking Tobacco: Former Cigarettes 0.5 15 1 8 - 2012 Smokeless Tobacco: Current Comments:pt has [...] No 07/03/2015 documented as of this encounter Progress Notes * Felicitas Rodriguez - 03/30/2021 0928 EDT [facility]??Gastroenterology/Hepatology Clinic ?? Medication Therapy Follow Up: ?? Franky Kaity Juanito??is a 45 y.o.??male??being treated with Epclusa x12 weeks??for hepatitis C. Due for SVR labs. ?? MD:??Lidofsky Regimen:??Epclusa x12 weeks?? Genotype:??2 Treatment: Experienced: Sofosbuvir + ribavirin?? Cirrhosis: Y Fibrosis Stage:??F3-F4 (fibroscan 08/26/20)?? Social Hx:??history of illicit drug use?? Specialty Pharmacy:??[facility]? Start date:??09/02/20?Lab: Lives in [facility] -??PCP or Randi?? Week Date SCr Hct/Hgb AST ALT HCV RNA Quant Pretreatment 01/13/20 0.78 N/A 98 215 2,116,869 7 ??10/23/20 ??0.82 43/14.6 22 25 Undetected 12 post-tx ??02/23/21 ? Called patient's PCP's office to follow up re: lab results from appt with PCP on 03/17/21. Labs werenot drawn at this appt, however patient is coming for appt today at 11 AM. Re-faxed lab orders and requested patient have these drawn when he comes in today. Will follow up next week to obtain results if not faxed to our office. Felicitas Rodriguez PharmD Pharmacist Clinician - Gastroenterology/Hepatology 03/30/2021 documented in this encounter Plan of Treatment Not on file documented as of this encounter Visit Diagnoses Not on filedocumented in this encounter Care Teams Hole Puncher Strap Relationship Specialty Start Date End Date Nicole Velasquez MD [address] [address] PCP - General 01/13/20 06/27/23 documented as of this encounter
--- OUTSIDE RECORDS SUMMARY | 2024-09-16 15:26 | XMS_ITS | Encounter Summary ---
Author Organization [facility] Address [address] [place] [address] Care Team Providers Care Apricot Washer Name Role Phone Zofia Cruz MD Primary Care Provider [phone] Encounter Details Date Type Department Care Team (Latest Contact Info) Description 06/28/2023 Travel Social History Tobacco Use Types Packs/Day Years [...] Yes 2022 documented as of this encounter Plan of Treatment Not on file documented as of this encounter Visit Diagnoses Not on filedocumented in this encounter Care Teams Apricot Washer Relationship Specialty Start Date End Date Zofia Cruz MD [address] [place] [address] PCP - General 06/28/23 documented as of this encounter
--- OUTSIDE RECORDS SUMMARY | 2024-09-16 15:26 | XMS_ITS | Encounter Summary ---
Author Organization [facility] Address [address] [place] [address] Care Team Providers Care Procurement Internship Name Role Phone Nicole Velasquez MD Primary Care Provider [phone] Encounter Details Date Type Department Care Team (Late st Contact Info) Description 03/10/2021 Specialty Pharmacy [facility] [address], [place] [id number] Felicitas Rodriguez, [facility] [address] [place], [place] [id number] Social History Tobacco Use Types Packs/Day Years [...] encounter Progress Notes * Felicitas Rodriguez - 03/10/2021 1019 EDT [facility]??Gastroenterology/Hepatology Clinic ?? Medication Therapy Follow Up: ?? Franky Solomon??is a 45 y.o.??male??being treated with Epclusa x12 weeks??for hepatitis C. Due for SVR labs. ?? MD:??Gurpreetofskjae Regimen:??Epclusa x12 weeks?? Genotype:??2 Treatment: Experienced: Sofosbuvir + ribavirin?? Cirrhosis: Y Fibrosis Stage:??F3-F4 (fibroscan 08/26/20)?? Social Hx:??history of illicit drug use?? Specialty Pharmacy:??[facility]?? Start date:??09/02/20?Lab: Lives in [facility] -??PCP or Randi?? Week Date SCr Hct/Hgb AST ALT HCV RNA Quant Pretreatment 01/13/20 0.78 N/A 98 215 2,116,869 7 ??10/23/20 ??0.82 43/14.6 22 25 Undetected 12 post-tx ??02/23/21 ? Attempted to contact patient at listed phone numbers, no answer and unable to LM. Called patient's PCP to see if labs had been drawn - no recent labs, patient does have appt on 03/17/[address] Velasquez. Re-faxed lab orders to [phone]. PCP's office provided updated phone number for patient - [phone]. Attempted to call, no answerand unable to LM. Will follow up after 03/17/21 to obtain lab results. Felicitas Rodriguez PharmD Pharmacist Clinician - Gastroenterology/Hepatology 03/10/2021 documented in this encounter Plan of Treatment Not on file documented as of this encounter Visit Diagnoses Not on filedocumented in this encounter Care Teams Procurement Internship Relationship Specialty Start Date End [place] [address] PCP - General 01/13/20 06/27/23 documented as of this encounter
--- OUTSIDE RECORDS SUMMARY | 2024-09-16 15:26 | XMS_ITS | Encounter Summary ---
Author Organization [facility] Address [address] [place] [address] Care Team Providers Care Family Practice Md Name Role Phone Zofia Cruz MD Primary Care Provider [phone] Reason for Visit * Reason Onset Date Comments Pre-visit Planning 12/27/2023 Encounter Details Date Type Department Care Team (Late st Contact Info) Description 12/27/2023 Telephone [facility] Adult Hematology & Oncology [address] [place] [address] Dara Mahoney RN Pre-visit Planning Social History Tobacco Use Types Packs/Day Years Used Date Smoking Tobacco: Former Cigarettes 0.5 15 1 8 - 2012 Smokeless Tobacco: Current Tobacco Cessation:Ready to [...] Yes 2022 documented as of this encounter Miscellaneous Notes * Telephone Encounter - Dara Mahoney RN - 12/27/2023 1206 EST Allergies, medications, immunizations, problems list, PMH, FMH, social hx, and surgical hx updated documented in this encounter Plan of Treatment Not on file documented as of this encounter Visit Diagnoses Not on filedocumented in this encounter Historical Medications * This list may reflect changes made after this encounter. Medication Sig Dispensed Refills Start Date End Date QUEtiapine (SEROQUEL) 100 mg tablet Take 1 Tablet by mouth daily. morphine (MS CONTIN) 60 mg CR tablet Take 1 Tablet by mouth 3 times daily. mirtazapine (REMERON) 45 mg tablet Take 1 Tablet by mouth daily. lithium carbonate 150 mg capsule Take 1 Capsule by mouth daily. losartan (COZAAR) 25 mg tablet Take 1 Tablet by mouth daily. 09/09/2023 losartan (COZAAR) 50 mg tablet Take 1 Tablet by mouth daily. 11/07/2023 added in this encounter Care Teams Family Practice Md Relationship Specialty Start Date End Date Zofia Cruz MD [address] [place] [id number] PCP - General 06/28/23 documented as of this encounter
--- OUTSIDE RECORDS SUMMARY | 2024-09-16 15:26 | XMS_ITS | Encounter Summary ---
Author Organization [facility] Address [address] [place] [address] Care Team Providers Care Set Up Inspector Name Role Phone Nicole Velasquez MD Primary Care Provider [phone] Reason for Referral * Office Procedure (Routine/Next Available) - Authorization Not Required Specialty Diagnoses / Procedures Referred By Jose madsen Referred To Contact Neurology Diagnoses Seizure-like activity (HCC-CMS) Procedures EEG Celestine Clark MD [address] [address] [facility] Eeg [address] [place] [address] Referral ID Status Reason Start Date Expiration Date Visits Requested Visits Authorized [id number] Authorization Not Required 2 1 1 * Office Procedure (Routine/Next Available) - Denied Specialty Diagnoses / Procedures Referred By Jose madsen Referred To Contact Neurology Diagnoses Muscle twitching Procedures EMG/NERVE CONDUCTION STUDY Celestine Clark MD [address] [facility] [place] [address] [facility] [address] [place] [address] Referral ID Status Reason Start Date Expiration Date V isits Requested Visits Authorized [id number] Denied Specialty Services Required 2022 1 0 Reason for Visit * Reason Comments New Patient Visit * Consult (Routine) - Closed Specialty Diagnoses / Procedures Referred By Jose t Referred To Contact Neurology Diagnoses Seizures (HCC-CMS) Procedures CONSULT NEUROLOGY Nicole Velasquez MD [address] [address] [facility] [address] [place] [address] Referral ID Status Reason Start Date Expiration Date V isits Requested Visits Authorized [id number] Closed Specialty Services Required 1 1 Encounter Details Date Type Department Care Team (Late st Contact Info) Description 2022 14:00 EST Office Visit [facility] Neurology Clinic [address] [place], [place] [id number] Celestine Clark MD [address] [address] Seizure-like activity (HCC-CMS) (Primary Dx); Muscle twitching Social History Tobacco Use Types Packs/Day Years [...] 13:38 EST Sexual Orientation Not on file COVID-19 Exposure Response Date Recorded In the last 10 days, have yo u been in contact with someone who was confirmed or suspected to have Coronavirus/COVID-19? No / Unsure 09/26/2022 10:02 EST documented as of this encounter Last Filed Vital Signs Vital Sign Reading Time Taken Comments Blood Pressure 122/82 2022 1400 EST Pulse 86 2022 1400 EST Temperature - - Respiratory Rate 16 2022 1400 EST Oxygen Saturation 97% 2022 1400 EST Inhaled Oxygen Concentration - - Weight - - Height - - Body Mass Index - - documented in this encounter Functional Status Functional [...] Yes 2022 documented as of this encounter Patient Instructions * Patient Instructions* Celestine Clark MD - 2022 14:00 EST 1) EEG. 2) EMG/NCV. 3) Please follow up with Dr. Clark in six months. documented in this encounter Progress Notes * Celestine Clark MD - 2022 1400 EST [facility] PATIENT NAME: Franky Solomon PATIENT : 1975 PCP: Nicole Velasquez DATE OF SERVICE: 2022 CHIEF COMPLAINT: Seizure-llike episodes HISTORY He patient is a 47 year-old man with a history of hypercoagulable syndrome, bipolar 1 disorder and chronic hepatitis C who returns to neurology clinic. The patient was Dr. Chen on and the patient on his present clinic visit describes again episodes at which time the patient experiences visual disturbances along with facial numbness and slurred speech, some episodes of which are associated with loss of consciousness. There is no pattern to the episodes. The patient usually has between none and two episodes per month. The plan in 2019 was to start with a routine EEG. Covid derailed the patient's plan. On this visit, the patient also related that within the past few years, the patient has developed twitching of his muscles which at first was very intermittent, and now the patient experiences the twitching every day. The twitching occurs independently in all of the patient's extremities. There is no associated muscle weakness. There is no pattern or association with any activity. The twitching can get very severe and is worse in his legs than in his arms. The symptoms do not occur predominantly at night. Patient Active Problem List Diagnosis ??? Primary hypercoagulable state (HCC-CMS) (HCC) ??? Bipolar I disorder (HCC) ??? Panic disorder ??? Chronic back pain ??? Former smoker ??? Chronic hepatitis C without hepatic coma (HCC-CMS) (HCC) Past Medical History: Diagnosis Date ??? Bipolar 1 disorder (HCC-CMS) ??? Clotting disorder (HCC-CMS) ??? Depression ??? H/O: substance abuse (HCC-CMS) ??? Heterozygous factor V Leiden mutation (HCC-CMS) ??? Jaundice ??? Lumbar nerve root injury ??? Panic disorder 06/27/2012 ??? Pulmonary embolism (HCC-CMS) 12/2011 not confirmed ??? Spinal stenosis Past Surgical History: Procedure Laterality Date ??? FINGER AMPUTATION tip FAMILY HISTORY family history includes Alcohol Abuse in his brother and father; Clotting Disorder in his maternal aunt and mother; Depression in his brother; Diabetes in his mother; Heart Disease in his maternal aunt and mother; High Blood Pressure in his mother; Mental Illness in his brother; Substance Abuse in his brother and father. SOCIAL HISTORY reports that he quit smoking about 9 years ago. His smoking use included cigarettes. He has a 7.50 pack-year smoking history. He uses smokeless tobacco. He reports current drug use. Drug: Marijuana. He reports that he does not drink alcohol. ALLERGIES Allergies Allergen Reactions ??? Depacon [Valproate Sodium] ??? Depakote [Divalproex] Confused, shakes, pt says yellow and funny looking ??? Gabapentin CURRENT MEDICATIONS Outpatient Medications Marked as Taking for the 10/06/22 encounter (Office Visit) with Celestine Clark MD Medication Sig ??? MEDICAL MARIJUANA 0.5 g daily ??? methadone (DOLOPHINE) 10 mg tablet Take 20 mg by mouth 2 times daily. ??? warfarin (COUMADIN) 1 mg tablet Take 1 mg by mouth daily. ??? warfarin (COUMADIN) 5 mg tablet Take 6 mg by mouth daily EXAMINATION BP 122/82 Pulse 86 Resp 16 SpO2 97% General: The patient's head was normocephalic and atraumatic. The patient's eyes were conjugate. The patient's oropharynx was clear without edema, erythema or exudates. The patient's skin was withoutrashes. The patient was oriented to person, place and time and the patient was pleasant. Cranial nerves II through XII were intact. Motor strength testing revealed 5/5 strength in all extremities. Tone was normal. There was independent, mild, very intermittent twitching of the muscles in the four extremities. Sensation was intact grossly to light touch. Observation of station and gait revealed normal stance and normal arm swing. ASSESSMENT: Seizure-like episodes; muscle twitching PLAN: 1) We will start with a routine EEG. If the routine EEG is unrevealing, then ambulatory EEG. 2) EMG/NCV. 3) RTC six months. Celestine Clark MD I spent a total of fifty minutes on the date of this encounter meeting with the patient and reviewing documentation/coordinating care as described in the above note. documented in this encounter Plan of Treatment Scheduled Orders Name Type Priority Associated Diagnoses Order Schedule EMG/NERVE CONDUCTION STUDY Procedures Routine/Next Available Muscle twitching Expected: 11/05/2022 (Approximate), Expires: 2023 EEG Neurology Routine Seizure-like activity (HCC-CMS) Expected: 2023 (Approximate) documented as of this encounter Visit Diagnoses Diagnosis Seizure-like activity (HCC-CMS)- Primary Other convulsions Muscle twitching Abnormal involuntary movements documented in this encounter Care Teams Set Up Inspector Relationship Specialty Start Date End Date Nicole Velasquez MD [address] [address] PCP - General 01/13/20 06/27/23 documented as of this encounter
--- OUTSIDE RECORDS SUMMARY | 2024-09-16 15:26 | XMS_ITS | Encounter Summary ---
Author Organization [facility] Address [address] [place] [address] Care Team Providers Care Health Care Facility Administrator Name Role Phone Zofia Cruz MD Primary Care Provider [phone] Encounter Details Date Type Department Care Team (Latest Contact Info) Description 06/19/2024 Travel Social History Tobacco Use Types Packs/Day [...] you have serious difficulty h earing? No 06/19/2024 Because of a physical, menta l, or [...] on filedocumented in this encounter Care Teams Health Care Facility Administrator Relationship Specialty Start Date End Date Zofia Cruz MD [address] [place] [address] PCP - General 06/28/23 documented as of this encounter
--- OUTSIDE RECORDS SUMMARY | 2024-09-16 15:26 | XMS_ITS | Encounter Summary ---
Author Organization [facility] Address [address] [place] [address] Care Team Providers Care Chef & Owner Name Role Phone Nicole Velasquez MD Primary Care Provider [phone] Encounter Details Date Type Department Care Team (Late st Contact Info) Description 11/30/2022 Orders Only [facility] Cardiology Clinic [address] [place] [address] Nicole Ricardo, JOSE [address] [facility] [address] [place] [address] Chest pain (Primary Dx) Social History Tobacco Use Types Packs/Day Years [...] as of this encounter Visit Diagnoses Diagnosis Chest pain- Primary Chest pain, unspecified documented in this encounter Care Teams Chef & Owner Relationship Specialty Start Date End Date Nicole Velasquez MD [address] [address] PCP - General 01/13/20 06/27/23 documented as of this encounter
--- OUTSIDE RECORDS SUMMARY | 2024-09-16 15:26 | XMS_ITS | Encounter Summary ---
Author Organization [facility] Address [address] [place] [address] Care Team Providers Care Elementary Education Tutor Name Role Phone Nicole Velasquez MD Primary Care Provider [phone] Reason for Visit * Reason Comments Near Syncope Patient with multipl e coagulopathies, is on coumadin, reports his entire body felt numb last night at 2230. He couldn't feel any sensation on his skin and thought his hand veins looked engorged. He tried to keep walking to keep my blood going and not . He lay down and passed out. He now feels back to normal other than slight weakness. Encounter Details Date Type Department Care Team (Late st Contact Info) Description 09/26/2022 10:49 EST - 09/26/2022 14:57 EST Emergency [facility] Emergency Department [address], [place] [id number] Diego Cabral MD [address] [place] [address] Near syncope (Primary Dx) Discharge Disposition: Home or Self Care Social History Tobacco Use Types Packs/Day Years Used Date Smoking Tobacco: Former Cigarettes 0.5 15 1 998 - 2013 Smokeless Tobacco: Current Comments:pt has lozenges to [...] Sign Reading Time Taken Comments Blood Pressure 133/86 09/26/2022 1100 EST Pulse 66 09/26/2022 1002 EST Temperature 37 ??C (98.6 ??F) 09/26/2022 1002 EST Respiratory Rate 12 09/26/2022 1002 EST Oxygen Saturation 98% 09/26/2022 1100 EST Inhaled Oxygen Concentration - - Weight 73.9 kg (163 lb) 09/26/2022 1002 EST Height 182.9 cm (6') 09/26/2022 1002 EST Body Mass Index 22.11 09/26/2022 1002 EST documented in this encounter Functional Status Functional [...] No 07/03/2015 documented as of this encounter Discharge Instructions * Discharge Instructions* Diego Cabral MD - 09/26/2022 14:33 EST Follow-up with neurology tomorrow as scheduled Stay well-hydrated Return with the development of any chest pain, fainting spells, seizure, or confusion Your electrolytes and EKG were entirely normal today your INR was perfectly therapeutic at 2.5 documented in this encounter Medications at Time of Discharge Medication Sig Dispensed Refills Start Date End Date clonAZEPAM (KLONOPIN) 2 mg tablet Take 0.5 mg by mouth 2 times daily. docusate sodium (COLACE) 100 mg capsule Take 100 mg by mouth as needed for Constipation. 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 Reviewing his records, these episodes seem quite consistent with many prior. Somewhat worse last night. Have not pursued work-up for ACS. His ECG is nonischemic. There is no signs of QT prolongation or other red flags for dangerous ventricular arrhythmia. His electrolytes are normal and his INR is therapeutic at 2.5. He has an appointment tomorrow with neurology. He was discharged in stable condition with return precautions Final diagnoses: Near syncope Disposition: Discharged Chief complaint: Near syncope HPI Obed Montague is a 46 y.o. male with a history of hypercoagulable syndrome (antiphospholipid),bipolar 1, chronic hep C who presents to the ED for near syncopal episode last night. For many years he has had intermittent episodes of numbness that sweep over his thorax and upper extremities and head, leaving him feeling like he might pass out. Sometimes they are 1 side or the other. They come in groups. He had one last night that was much worse than usual, encompassing his whole anterior chest, up into his throat and chin, both arms, chest numbness with no pain, pressure, shortness of breath, racing heart. He did feel like he was going to drop. He laid down but did not fully lose consci ousness. Symptoms gradually went away but these were more dramatic than his usual symptoms. He became worried about whether he was adequately anticoagulated. At no point did he have diplopia, headache, neck pain, fever chills, shortness of breath, leg pain or swelling, cough, hemoptysis, diarrhea, black or bloody stools, abdominal pain, low back, groin or flank pain or other findings on full 10 point review of systems History was provided by: Patient Patient's pertinent PMH, FH, SH were reviewed and edited as necessary. ROS A 10-point review of systems was performed. The patient answered negative to all questions with theexceptions of those explicitly detailed as positives in the HPI. Pertinent negatives are also explicitly stated. Physical Exam BP 133/86 Pulse 66 Temp 37 ??C (98.6 ??F) (Temporal) Resp 12 Ht 182.9 cm (72) Wt 73.9 kg(163 lb) SpO2 98% BMI 22.11 kg/m?? A medical screening exam was performed. Physical Exam Vitals and nursing note reviewed. Constitutional: General: He is not in acute distress. Appearance: He is well-developed and well-nourished. He is not diaphoretic. HENT: Head: No signs of injury. Nose: No nasal discharge. Mouth/Throat: Mouth: Mucous membranes are moist. Dentition: Normal. Pharynx: Oropharynx is clear. Normal. Eyes: General: No scleral icterus. Extraocular Movements: EOM normal. Conjunctiva/sclera: Conjunctivae normal. Pupils: Pupils are equal, round, and reactive to light. Neck: Thyroid: No thyromegaly. Cardiovascular: Rate and Rhythm: Normal rate and regular rhythm. Pulses: Intact distal pulses. Heart sounds: Normal heart sounds. Heart sounds not distant. No murmur heard. No systolic murmur is present. No friction rub. Pulmonary: Effort: Pulmonary effort is normal. No respiratory distress or retractions. Breath sounds: Normal breath sounds. No wheezing or rales. Chest: Chest wall: No tenderness. Abdominal: General: There is no distension. Palpations: Abdomen is soft. Tenderness: There is no abdominal tenderness. There is no guarding or rebound. Musculoskeletal: General: No tenderness or edema. Normal range of motion. Cervical back: Normal range of motion and neck supple. Right lower leg: No edema. Left lower leg: No edema. Lymphadenopathy: Cervical: No cervical adenopathy. Skin: General: Skin is warm and dry. Coloration: Skin is not pale. Findings: No ecchymosis, erythema, petechiae or rash. Nails: There is no clubbing. Neurological: Mental Status: He is alert and oriented to person, place, and time. Cranial Nerves: No cranial nerve deficit. Psychiatric: Mood and Affect: Mood and affect normal. Behavior: Behavior normal. Thought Content: Thought content normal. An EKG was obtained and independently interpreted. Laboratory data was reviewed and independently interpreted. Normal sinus rhythm, normal axis, LVH, no significant ST segment changes, normal QT interval, interpreted independently contemporaneously by ED physician. Procedures Procedures * Hannah Vazquez - 09/26/2022 1307 EST 12 Lead EKG Performed by HANNAH VAZQUEZ and shown to Diego Cabral MD. * Cristina Reyes RN - 09/26/2022 1257 EST IV attempt made to right forearm, patient complained of pain and requested removal of needle. Needle removed, patient declining second insertion attempt and blood work at this time. Will check in with patient shortly. documented in this encounter Plan of Treatment Not on file documented as of this encounter Procedures Procedure Name Priority Date/Time Associated Diagnosis Comments ECG REPORT - SCANNED 09/26/2022 15:13 EST TROPONIN I STAT 09/26/2022 13:24 EST MAGNESIUM STAT 09/26/2022 13:24 EST VALPROIC ACID LEVEL STAT 09/26/2022 1 3:24 EST BASIC METABOLIC PANEL (BMP) STAT 09/26/2022 13:24 EST PROTIME STAT 09/26/2022 13:23 EST COMPLETE BLOOD COUNT AND DIFFERENTIAL STAT 09/26/2022 13:23 EST EKG 12-LEAD STAT 09/26/2022 12:51 EST documented in this encounter Results * ECG REPORT - SCANNED (09/26/2022 15:13 EST) 09/26/2022 15:1 3 EST Scan 2 Rolling Mill Operator Helper PROCEDURE/MINOR BARBARA GICAL ORDERABLES * (ABNORMAL) VALPROIC ACID LEVEL (09/26/2022 13:24 EST) Valproic Acid <10(L) 50 - 100 ug/mL 09/26/2022 13:59 EST [facility] Blood VENOUS BLOOD / Unknown Venipuncture / Unknown 09/26/2022 13:24 EST 09/26/2022 13:30 EST Diego Cabral MD CHEMISTRY & BLOOD GA S ORDERABLES Performing Organization Address City/[facility]/ZIP Co de Phone Number [facility] [address] [place] [address] * MAGNESIUM (09/26/2022 13:24 EST) Pathologist [facility] Magnesium 2.1 1.7 - 2.8 mg/dL 09/26/2022 13:59 EST [facility] Blood VENOUS BLOOD / Unknown Venipuncture / Unknown 09/26/2022 13:24 EST 09/26/2022 13:30 EST Diego Cabral MD CHEMISTRY & BLOOD GA S ORDERABLES [facility] [address] [place] [address] * TROPONIN I (09/26/2022 13:24 EST) Troponin I (ng/mL) <0.034 <0.034 ng/mL 09/26/2022 14:03 EST [facility] Blood VENOUS BLOOD / Unknown Venipuncture / Unknown 09/26/2022 13:24 EST 09/26/2022 14:03 EST Narrative [facility] - 09/26/2022 14:03 EST The results of this assay can be falsely lowered due to the consumption of Biotin. Diego Cabral MD CHEMISTRY & BLOOD GA S ORDERABLES Performing Organization Address [facility]/ZIP Co de Phone Number [facility] [address] [place] [address] * (ABNORMAL) BASIC METABOLIC PANEL (BMP) (09/26/2022 13:24 EST) Pathologist [facility] Sodium 138 136 - 145 mmol/L 09/26/2022 13:59 EST [facility] Potassium 3.8 3.5 - 5.0 mmol/L 09/26/2022 13:59 [facility] Chloride 102 96 - 110 mmol/L 09/26/2022 13:59 EST [facility] CO2 Total 32 22 - 32 mmol/L 09/26/2022 13:59 [facility] Anion Gap 4(L) 5 - 14 09/26/2022 13:59 EST [facility] Glucose 89 70 - 100 mg/dL 09/26/2022 13:59 EST [facility] Calcium 9.0 8.5 - 10.5 mg/dL 09/26/2022 13:59 EST [facility] BUN 16 10 - 26 mg/dL 09/26/2022 13:59 [facility] Creatinine 0.74 0.66 - 1.25 mg/dL 09/26/2022 13:59 [facility] eGFR 113 >60 mL/min/1.73 m2 09/26/2022 13:59 [facility] Blood VENOUS BLOOD / Unknown Venipuncture / Unknown 09/26/2022 13:24 EST 09/26/2022 13:30 EST Diego Cabral MD CHEMISTRY & BLOOD GA S ORDERABLES Performing Organization Address [facility]/ZIP Co de Phone Number [facility] [address] [place] [address] * COMPLETE BLOOD COUNT AND DIFFERENTIAL (09/26/2022 13:23 EST) Pathologist [facility] WBC 4.35 4.00 - 10.40 K/cmm 09/26/2022 13:50 [facility] RBC 4.43 4.36 - 5.78 M/cmm 09/26/2022 13:50 [facility] Hemoglobin 13.8 13.8 - 17.3 gm/dL 09/26/2022 13:50 [facility] HCT 40.4 39.5 - 50.2 % 09/26/2022 13:50 [facility] MCV 91 81 - 95 fl 09/26/2022 13:50 [facility] MCH 31.2 27.6 - 33.0 pg 09/26/2022 13:50 [facility] MCHC 34.2 32.8 - 36.4 gm/dL 09/26/2022 13:50 [facility] RDW-CV 12.2 <14.2 % 09/26/2022 13:50 [facility] RDW-SD 40.8 <46.0 fl 09/26/2022 13:50 [facility] PLT 187 141 - 377 K/cmm 09/26/2022 13:50 [facility] MPV 10.2 9.5 - 12.7 fl 09/26/2022 13:50 [facility] % Neutrophils 61.2 % 09/26/2022 13:50 [facility] % Lymphocytes 28.7 % 09/26/2022 13:50 [facility] % Monocytes 6.2 % 09/26/2022 13:50 [facility] % Eosinophils 3.2 % 09/26/2022 13:50 [facility] % Basophils 0.5 % 09/26/2022 13:50 [facility] % Immature Grans 0.2 % 09/26/20 13:50 [facility] Absolute Neutrophils 2.66 2.20 - 8.85 K/cmm 09/26/2022 13:50 [facility] Absolute Lymphocytes 1.25 1.09 - 3.30 K/cmm 09/26/2022 13:50 [facility] Absolute Monocytes 0.27 0.10 - 0.80 K/cmm 09/26/2022 13:50 [facility] Absolute Eosinophils 0.14 0.03 - 0.61 K/cmm 09/26/2022 13:50 [facility] ABS Basophils 0.02 0.01 - 0.11 K/cmm 09/26/2022 13:50 [facility] Absolute Immature Grans 0.01 0.00 - 0.06 K/cmm 09/26/2022 13:50 [facility] Type of Differential: Auto 09/26/2022 13:50 [facility] Blood VENOUS BLOOD / Unknown Venipuncture / Unknown 09/26/2022 13:23 EST 09/26/2022 13:48 EST Diego Cabral MD PACKAGES & DNA PROBE ORDERABLES Performing Organization Address [facility] Co fl Phone Number [facility] [address] [place] [address] * (ABNORMAL) PROTIME (09/26/2022 13:23 EST) I.N.R. 2.5(H) 0.9 - 1.1 Ratio 09/26/2022 13:56 [facility] Pro Time 29.5(H) 9.7 - 12.8 secs 09/26/2022 13:56 [facility] Blood VENOUS BLOOD / Unknown Venipuncture / Unknown 09/26/2022 13:23 EST 09/26/2022 13:53 EST [facility] - 09/26/2022 13:56 EST Moderate Intensity Coumadin INR = 2.0-3.0 Adjustments in anticoagulant therapy dose should be based on the INR and NOT on the Protime. Diego Cabral MD HEMATOLOGY & PF4 ORD ERABLES Performing Organization Address City/[facility] Co de Phone Number [facility] [address] [place] [address] * EKG 12-LEAD (09/26/2022 12:51 EST) 09/26/2022 12:5 1 EST Narrative [facility] - 09/26/2022 15:08 EST ? [facility] ? Test Date: ?2022-09-26 Pat Name: ? OBED MONTAGUE ? Department: ? Room: ? B05 Gender: ? Male ? Feather Boner: ?? LINDEN : ?1975 ? Requested By: TED Amador Order Number: [id number] ? Reading MD: ?? PRASAD PETERSON MD ? Measurements Intervals ?Elizabeth ? Rate: ? 65 ? P: ?20 NV: ? 136 ?QRS: ?56 QRSD: ? 104 ?T: ?31 QT: ? 412 ? QTc: ?428 ? Interpretive Statements Normal sinus rhythm Voltage criteria for left ventricular hypertrophy Compared to ECG 03/30/2018 10:44:13 Left ventricular hypertrophy now present Sinus bradycardia no longer present I reviewed the tracing and have either agreed or edited the findings in this report. Electronically Signed On 09-26-2022 15:08:51 EST by PRASAD PETERSON MD. Procedure Note Prasad Peterson MD - 09/26/2022 [facility] [place]: 2022-09-26 Pat Name: OBED MONTAGUE Department: Room: B05 Gender: Male Feather Boner: LINDEN : 1975 Requested By: TED Amador Order Number: [id number] Reading MD: PRASAD PETERSON MD Measurements Intervals Elizabeth Rate: 65 P: 20 NV: 136 QRS: 56 QRSD: 104 T: 31 QT: 412 QTc: 428 Interpretive Statements Normal sinus rhythm Voltage criteria for left ventricular hypertrophy Compared to ECG 03/30/2018 10:44:13 Left ventricular hypertrophy now present Sinus bradycardia no longer present I reviewed the tracing and have either agreed or edited the findings inthis report. Electronically Signed On 09-26-2022 15:08:51 EST by PRASAD TSE. Diego Cabral MD CARDIAC ECG ORDERABL ES [facility] EPIPHANY documented in this encounter Visit Diagnoses Diagnosis Near syncope- Primary Syncope and collapse documented in this encounter Administered Medications Inactive Administered Medications - up to 3 most recent administrations Medication Order MAR Action Action Date Dose Rate Site lactated ringers BOLUS 1,000 mL 1,000 mL, intravenous, NOW X1, 1 dose, On Mon09/26/22 at 1300, STAT Given 09/26/2022 13:24 EST 1,000 mL documented in this encounter Active and Recently Administered Medications Due to Daylight Saving Time, this section may contain times in both EDT and EST. Scheduled Medication Order 09/24/2022 09/25/2022 09/26/2022 lactated ringers BOLUS 1,000 mL (COMPLETED) 1,000 mL, intravenous, NOW X1, 1 dose, On Mon09/26/22 at 1300, STAT 1324 (Given - Provid er: Stephan Drew RN) documented in this encounter Orders Medications Ordered That Bull ht Not Have Been Administered Count Last Ordered Date First Ordered Date lactated ringers BOLUS 1,000 mL 1 2 documented in this encounter Care Teams Elementary Education Tutor Relationship Specialty Start Date End Date Nicole Velasquez MD [address] [address] PCP - General 01/13/20 06/27/23 documented as of this encounter
--- OUTSIDE RECORDS SUMMARY | 2024-09-16 15:26 | XMS_ITS | Encounter Summary ---
Author Organization [facility] Address [address] [place] [address] Care Team Providers Care Back Shoe Worker Name Role Phone Zofia Cruz MD Primary Care Provider [phone] Encounter Details Date Type Department Care Team (Latest Contact Info) Description 08/27/2024 Travel Social History Tobacco Use Types Packs/Day [...] you have serious difficulty h earing? No 08/27/2024 Because of a physical, menta l, or [...] on filedocumented in this encounter Care Teams Back Shoe Worker Relationship Specialty Start Date End Date Zofia Cruz MD [address] [place] [address] PCP - General 06/28/23 documented as of this encounter
--- OUTSIDE RECORDS SUMMARY | 2024-09-16 15:26 | XMS_ITS | Encounter Summary ---
Author Organization [facility] Address [address] [place] [address] Care Team Providers Care Medical Records Administrator Name Role Phone Nicole Velasquez MD Primary Care Provider [phone] Encounter Details Date Type Department Care Team (Latest Contact Info) Description 09/26/2022 Travel Social History Tobacco Use Types Packs/Day [...] 10:02 EST documented as of this encounter Functional Status [...] No 07/03/2015 documented as of this encounter Plan of Treatment Not on file documented as of this encounter Visit Diagnoses Not on filedocumented in this encounter Care Teams Medical Records Administrator Relationship Specialty Start Date End [place] [address] PCP - General 01/13/20 06/27/23 documented as of this encounter
--- OUTSIDE RECORDS SUMMARY | 2024-09-16 15:26 | XMS_ITS | Encounter Summary ---
Author Organization [facility] Address [address] [place] [address] Care Team Providers Care Machine Design Engineer Name Role Phone Zofia Cruz MD Primary Care Provider [phone] Reason for Visit * Reason Comments Groin Pain Pt was pushing a fou r miller yesterday that had flat tires. 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 Pt arrives limping. Pt denies a lump, he does state he has had back pain before. Pt denies difficulty urinating. Encounter Details Date Type Department Care Team (Late st Contact Info) Description 08/27/2024 14:44 EDT - 08/27/2024 18:28 EDT Emergency [facility] Emergency Department [address] [place], [place] [address] Hemarthrosis of right hip (Primary Dx) Discharge [...] 3.2 oz) 08/27/2024 1423 E DT Height - - Body Mass Index 24.03 06/28/2023 1853 EDT documented in this encounter Functional Status [...] this encounter Discharge Instructions * Discharge Instructions* Cleopatra Lopez PA-C - 08/27/2024 18:01 EDT Pain medications as prescribed. Limited weight-bear/crutches for 1 week. No heavy lifting pushing or pulling for 1 week. Wear biking shorts with compression and ice area. Follow-up with primary care doctor. Call in a.m. for an appointment sometime in the next 3 to 4 days. Be available to answer your phone so I can call you with your INR results. documented in this encounter Medications at Time of Discharge Medication Sig Dispensed Refills Start Date End Date clonAZEPAM (KLONOPIN) 2 mg tablet Take 0.5 mg by mouth 2 times daily. docusate sodium (COLACE) 100 mg capsule Take 100 mg by mouth as needed for Constipation. HYDROcodone-acetaminophe n (NORCO) 5-325 mg tablet Take 1 Tablet by mouth every 6 hours. Daily Max: 4 Tablets 10 Tablet 08/27/2024 lithium carbonate 150 mg capsule Take 1 Capsule by mouth daily. losartan (COZAAR) 25 mg tablet Take 1 Tablet by mouth daily. 09/09/2023 losartan (COZAAR) 50 mg tablet Take 1 Tablet by mouth daily. 11/07/2023 MEDICAL MARIJUANAIndications:Chr onic hepatitis C without hepatic coma (HCC-CMS) 0.5 g daily methadone (DOLOPHINE) 10 mg tabletIndications:Chroni c hepatitis C without hepatic coma (HCC-CMS) Take 1 Tablet by mouth 2 times daily. mirtazapine (REMERON) 45 mg tablet Take 1 Tablet by mouth daily. morphine (MS CONTIN) 60 mg CR tablet Take 1 Tablet by mouth 3 times daily. QUEtiapine (SEROQUEL) 100 mg tablet Take 1 Tablet by mouth daily. sofosbuvir-velpatasvir 400-100 mg tabletIndications:Chroni c hepatitis C without hepatic coma (HCC-CMS) Take [...] of 13mg documented as of this encounter Ordered Prescriptions Prescription Sig Dispensed Refills Start Date End Da te HYDROcodone-acetaminophen (NORCO) 5-325 mg tablet Take 1 Tablet by mouth every 6 hours. Daily Max: 4 Tablets 10 Tablet 08/27/2024 documented in this encounter Discharge Disposition Disposition Code Departure Means Destination Comment s Home or Self Senior Living documented in this encounter ED Notes * Cleopatra Lopez PA-C - 08/27/2024 1403 EDT Emergency Department Visit Medical Decision Making Relevant Data as of 08/27/24 2325 Tue Aug 27, 2024 1628 WBC: 7.40 [KS] 1628 Hemoglobin: 14.4 [KS] 1628 HCT: 41.0 [KS] 1629 Sodium: 136 [KS] 1629 Potassium: 4.9 [KS] 1629 BUN: 13 [KS] 1629 Creatinine: 0.83 [KS] [address] Ferrara on-call for Ortho. He recommended pain medications limited weight-bear/crutches biking shorts and follow-up with his primary care doctor. [KS] [address] [employer] DEVELOPER aware query reveals no controlled substances in the [facility] in the last 2 years [KS] Relevant Data User Index [KS] Cleopatra Lopez PA-C Imaging (independent interpretation) of the CT: Abdomen pelvis reveals no evidence of inguinal hernia but there is a large joint effusion on the right. Medical Decision Making In summary this is a 48-year-old male with history of factor V Leiden on Coumadin therapy who presents stating that he was pushing a 4 miller that had its wheels locked yesterday and about 45 minutes afterwards started having some pain in his right groin that has worsened over that time period. Hestated it is worse with flexion at the hip. He denies paresthesias or weakness of the extremities. No incontinence of bladder or bowel. No abdominal or testicular pain. Normal bowel movement yesterday. No urinary symptoms. No prior abdominal surgeries or hernias. He has had previous spinal stenosisand degenerative disc disease. On exam vital signs blood pressure 144/78 pulse 64. Patient appears in significant pain with movement/flexion of his right hip. He is actually having to assist with his hands by lifting his upper leg. There is tenderness to palpation only with deep palpation at the midline of the inguinal ligament area. Differential Diagnosis: Right groin pain. Rule out hernia, muscle strain/rupture. Flexor strain. Hemarthrosis. ED Course: Labs reassuring with a normal white count, normal kidney function and normal urine. CT abdomen pelvis revealed effusion/hemarthrosis right hip. Case discussed with Dr. Ferrara who recommendedice, minimal weightbearing/crutches, pain control and follow-up with PCP. Patient's INR did come back at 5.5 just prior to his discharge. I had a long discussion with him regarding holding his Coumadi n and eating green leafy vegetables this evening and call his primary care doctor (Dr. Zofia Cruz) first thing tomorrow for further management of his Coumadin dose and next INR draw. Clinical Impression: Hemarthrosis in patient with history of factor V Leiden on Coumadin. Plan: Pain medications as prescribed. Limited weight-bear/crutches for 1 week. No heavy lifting pushing or pulling for 1 week. Wear biking shorts with compression and ice area. Follow-up with primarycare doctor. Call in a.m. for an appointment sometime in the next 3 to 4 days. Be available to answer your phone so I can call you with your INR results. Plan discussed with patient/family. All questions answered. Patient informed that this is a snapshot visit of his current situation and instructed to return ifany worsening symptoms. Follow-up with primary care doctor to complete evaluation. Problems Addressed: Hemarthrosis of right hip: complicated acute illness or injury Amount and/or Complexity of Data Reviewed Labs: ordered. Decision-making details documented in ED Course. Radiology: ordered. Details: COMPARISON: CTA CHEST PE PROTOCOL 03/15/2018 12:56 [...] noted. No evidence of an inguinal hernia. Risk Prescription drug management. Final diagnoses: Hemarthrosis of right hip Disposition: Discharged Chief complaint: Right groin pain HPI Braeden Solomon is a 48 y.o. male with history of factor V Leiden on Coumadin therapy who presents stating that he was pushing a 4 miller that had its wheels locked yesterday and about 45 minutes afterwards started having some pain in his right groin that has worsened over that time period. He stated it is worse with flexion at the hip. He denies paresthesias or weakness of the extremities. No incontinence of bladder or bowel. No abdominal or testicular pain. Normal bowel movement yesterday. Nourinary symptoms. No prior abdominal surgeries or hernias. He has had previous spinal stenosis and degenerative disc disease. History was provided by: Patient Records reviewed include: No recent INRs Patient's pertinent PMH, FH, SH were reviewed and edited as necessary. Nursing notes reviewed. A medical screening exam was performed. Physical Exam BP 136/76 Pulse 66 Temp 36.6 ??C (97.8 ??F) (Temporal) Resp 16 Wt 80.4 kg (177 lb 3.2 oz) SpO2 96% BMI 24.03 kg/m?? Physical Exam General appearance: Well-developed well-nourished in no severe distress Eyes conjunctiva clear without scleral icterus. HEENT: Mucous membranes moist. No rhinorrhea. Neck is supple without lymphadenopathy Cardiovascular: Heart regular rate and rhythm. Lungs: Clear to auscultation Abdomen: Soft nontender with normal bowel sounds. Extremities: Peripheral pulses full and symmetrical without edema.. Musculoskeletal: appears in significant pain with movement/flexion of his right hip. He is actuallyhaving to assist with his hands by lifting his upper leg. There is tenderness to palpation only with deep palpation at the midline of the inguinal ligament area. Neurological: Cranial nerves appear intact with no obvious weakness. Alert and oriented x 3. Procedures Procedures documented in this encounter Plan of Treatment Not on file documented as of this encounter Procedures Procedure Name Priority Date/Time Associated Diagnosis Comments PROTIME STAT 08/27/2024 17:[address] ABDOMEN PELVIS W CONTRAST STAT 08/27/2024 16:16 EDT COMPLETE BLOOD COUNT AND DIFFERENTIAL STAT 08/27/2024 15:55 EDT BASIC METABOLIC PANEL (BMP) STAT 08/27/2024 15:55 EDT documented in this encounter Results * (ABNORMAL) PROTIME (08/27/2024 17:46 EDT) I.N.R. 5.5(HH) 0.9 - 1.1 Ratio 08/27/2024 18:10 EDT [facility] Pro Time 59.9(H) 9.7 - 12.8 secs 08/27/2024 18:10 EDT [facility] Blood VENOUS BLOOD / Unknown Venipuncture / Unknown 08/27/2024 17:46 EDT 08/27/2024 17:48 EDT Narrative [facility] - 08/27/2024 18:10 EDT Moderate Intensity Coumadin INR = 2.0-3.0 Adjustments in anticoagulant therapy dose should be based on the INR and NOT on the Protime. Cleopatra Lopez PA-C HEMATOLOGY & PF4 OR DERABLES [facility] [address] [place] [address] * CT ABDOMEN PELVIS W CONTRAST (08/27/2024 [...] REGARDING THIS REPORT PLEASE CALL [facility] AT [phone] Narrative 08/27/2024 17:00 EDT PROCEDURE INFORMATION: Exam: [...] CONCERNS REGARDING THIS REPORT PLEASE CALL [facility] [phone] Cleopatra Lopez PA-C IMG CT ORDERABLES * BASIC METABOLIC PANEL (BMP) (08/27/2024 15:55 EDT) Sodium 136 136 - 145 mmol/L 08/27/2024 16:19 [facility] Potassium 4.9 3.5 - 5.0 mmol/L 08/27/2024 16:19 [facility] Comment:Slight hemolysis aurelia ntified, interpret with caution as hemolysis will elevate potassium result. Chloride 99 96 - 110 mmol/L 08/27/2024 16:19 [facility] CO2 Total 30 22 - 32 mmol/L 08/27/2024 16:19 [facility] Anion Gap 7 5 - 14 mmol/L 08/27/2024 16:19 [facility] Glucose 91 70 - 99 mg/dl 08/27/2024 16:19 [facility] Calcium 9.3 8.5 - 10.5 mg/dL 08/27/2024 16:19 [facility] BUN 13 10 - 26 mg/dL 08/27/2024 16:19 [facility] Comment: Slight hemolysis identified, interpret with caution as results may be affected due to hemolysis. Creatinine 0.83 0.66 - 1.25 mg/dL 08/27/2024 16:19 [facility] eGFR 108 >60 mL/min/1.7 3m2 08/27/2024 16:19 [facility] Blood VENOUS BLOOD / Unknown Venipuncture / Unknown 08/27/2024 15:55 EDT 08/27/2024 15:59 EDT Cleopatra Lopez PA-C CHEMISTRY & BLOOD G ORDERABLES [facility] [address] [place] [address] * COMPLETE BLOOD COUNT AND DIFFERENTIAL (08/27/2024 15:55 ED) WBC 7.40 4.00 - 10.40 K/cmm 08/27/2024 16:02 [facility] RBC 4.62 4.36 - 5.78 M/cmm 08/27/2024 16:02 [facility] Hemoglobin 14.4 13.8 - 17.3 g/dL 08/27/2024 16:02 [facility] HCT 41.0 39.5 - 50.2 % 08/27/2024 16:02 [facility] MCV 89 81 - 95 fL 08/27/2024 16:02 [facility] MCH 31.2 27.6 - 33.0 pg 08/27/2024 16:02 [facility] MCHC 35.1 32.8 - 36.4 g/dL 08/27/2024 16:02 [facility] RDW-CV 12.6 <14.2 % 08/27/2024 16:02 [facility] RDW-SD 40.9 <46.0 fl 08/27/2024 16:02 [facility] PLT 223 141 - 377 K/cmm 08/27/2024 16:02 [facility] MPV 9.5 9.5 - 12.7 fL 08/27/2024 16:02 [facility] % Neutrophils 69.1 Not Indicated % 08/27/2024 16:02 [facility] % Lymphocytes 18.9 Not Indicated % 08/27/2024 16:02 [facility] % Monocytes 8.1 Not Indicated % 08/27/2024 16:02 [facility] % Eosinophils 3.5 Not Indicated % 08/27/2024 16:02 [facility] % Basophils 0.3 Not Indicated % 08/27/2024 16:02 [facility] % Immature Grans 0.1 <0.9 % 08/27/2024 16:02 [facility] Absolute Neutrophils 5.11 2.20 - 8.85 K/cmm 08/27/2024 16:02 [facility] Absolute Lymphocytes 1.40 1.09 - 3.30 K/cmm 08/27/2024 16:02 [facility] Absolute Monocytes 0.60 0.10 - 0.80 K/cmm 08/27/2024 16:02 [facility] Absolute Eosinophils 0.26 0.03 - 0.61 K/cmm 08/27/2024 16:02 [facility] ABS Basophils 0.02 0.01 - 0.11 K/cmm 08/27/2024 16:02 [facility] Absolute Immature Grans 0.01 0.00 - 0.06 K/cmm 08/27/2024 16:02 [facility] Type of Differential: Auto 08/27/2024 16:02 [facility] Blood VENOUS BLOOD / Unknown Venipuncture / Unknown 08/27/2024 15:55 EDT 08/27/2024 15:59 EDT Cleopatra Lopez PA-C PACKAGES & DNA PROB E ORDERABLES [facility] [address] [place] [address] documented in this encounter Visit Diagnoses Diagnosis Hemarthrosis of right hip- Primary Hemarthrosis, pelvic region and thigh documented in this encounter Administered Medications Inactive Administered Medications - up to 3 most recent administrations Medication Order MAR Action Action Date Dose Rate Site HYDROcodone-acetaminophen (NORCO) 5-325 mg tablet 1 Tablet 1 Tablet, oral, NOW X1, 1 dose, On Mon08/27/24 at 1800, STAT Given 08/27/2024 18:02 EDT 1 Tablet iohexoL (OMNIPAQUE 350) solution 100 mL 100 mL, intravenous, Once in imaging, 1 dose, Starting on Mon08/27/24 at 1556, Until Mon08/27/24 at 1616, Routine Given 08/27/2024 16:16 EDT 100 mL methocarbamoL (ROBAXIN) tablet 750 mg 750 mg, oral, NOW X1, 1 dose, On e 08/27/24 at 1715, STAT Given 08/27/2024 17:00 EDT 750 mg predniSONE (DELTASONE) tablet 50 mg 50 mg, oral, NOW X1, 1 dose, On 08/27/24 at 1715, STAT Given 08/27/2024 17:01 EDT 50 mg documented in this encounter Active and Recently Administered Medications Times are shown in EDT. Scheduled Medication Order 08/25/2024 08/26/2024 08/27/2024 HYDROcodone-acetaminophen (NORCO) 5-325 mg tablet 1 Tablet (COMPLETED) 1 Tablet, oral, NOW X1, 1 dose, On Mon08/27/24 at 1800, STAT 1802 (Given - Provid er: Stephan Drew RN) iohexoL (OMNIPAQUE 350) solution 100 mL (COMPLETED) 100 mL, intravenous, Once in imaging, 1 dose, Starting on Mon08/27/24 at 1556, Until Mon08/27/24 at 1616, Routine 1616 (Given - Provid er: Tita Bee) methocarbamoL (ROBAXIN) tablet 750 mg (COMPLETED) 750 mg, oral, NOW X1, 1 dose, On Mon08/27/24 at 1715, STAT 1700 (Given - Provid er: Jocelyne Bhat RN) predniSONE (DELTASONE) tablet 50 mg (COMPLETED) 50 mg, oral, NOW X1, 1 dose, On Mon08/27/24 at 1715, STAT 1701 (Given - Provid er: Jocelyne Bhat RN) documented in this encounter Orders Medications Ordered That Bull ht Not Have Been Administered Count Last Ordered Date First Ordered Date HYDROcodone/acetaminophen 5 - 325 mg starter pack 1 08/27/2024 Nursing Count Last Ordered Date First Orde red Date CALL PHYSICIAN SPECIALTY CONSULT 08/27/20 documented in this encounter Care Teams Machine Design Engineer Relationship Specialty Start Date End Date Zofia Cruz MD [address] [place] [address] PCP - General 06/28/23 documented as of this encounter
--- OUTSIDE RECORDS SUMMARY | 2024-09-16 15:26 | XMS_ITS | Encounter Summary ---
Author Organization [facility] Address [address] [place] [address] Care Team Providers Care Digestion Operator Name Role Phone Nicole Velasquez MD Primary Care Provider [phone] Encounter Details Date Type Department Care Team (Late st Contact Info) Description 04/07/2021 Specialty Pharmacy [facility] - [facility] [address] [place] [address] Felicitas Rodriguez [facility] [address], [place] [id number] Social History Tobacco Use Types Packs/Day Years [...] encounter Progress Notes * Felicitas Rodriguez - 04/07/2021 1114 EDT [facility]??Gastroenterology/Hepatology Clinic ?? Medication Therapy Follow Up: ?? Franky Briceno Juanito??is a 45 y.o.??male??being treated with Epclusa x12 weeks??for hepatitis C.??Duefor SVR labs.? MD:??Brent Regimen:??Epclusa x12 weeks?? Genotype:??2 Treatment: Experienced:??Sofosbuvir??+ ribavirin?? Cirrhosis: Y Fibrosis Stage:??F3-F4 (fibroscan 08/26/20)?? Social Hx:??history of illicit drug use?? Specialty Pharmacy:??[facility]? Start date:??09/02/20?Lab: Lives in [facility] -??PCP or Randi?? Week Date SCr Hct/Hgb AST ALT HCV RNA Quant Pretreatment 01/13/20 0.78 N/A 98 215 2,116,869 7 ??10/23/20 ??0.82 43/14.6 22 25 Undetected 12 post-tx ??03/31/21 0.82?42.9/14.7 16 12 undetected ?? Called PCP's office to follow up regarding lab results after patient's appointment with PCP last week. Lab results faxed, notable for undetected HCV VL representing SVR. Attempted to contact patient to discuss results, no answer and unable to LM. He will be discharged from the specialty pharmacy database. Will send chart to Dr. Kennedy's machine tack puller to attempt to contact patient for follow up appointment. Felicitas Rodriguez PharmD Pharmacist Clinician - Gastroenterology/Hepatology 04/07/2021 documented in this encounter Plan of Treatment Not on file documented as of this encounter Visit Diagnoses Not on filedocumented in this encounter Care Teams Digestion Operator Relationship Specialty Start Date End Date Nicole Velasquez MD [address] [address] PCP - General 01/13/20 06/27/23 documented as of this encounter
--- OUTSIDE RECORDS SUMMARY | 2024-09-16 15:26 | XMS_ITS | Referral Summary ---
Author Organization [facility] Address [address] [place] [address] Care Team Providers Care Streetcar Repairer Helper Name Role Phone Zofia Cruz MD Primary Care Provider [phone] Encounters Date Type Department Care Team Description 08/27/2024 Travel 08/27/2024 14:44 EDT - 08/27/2024 18:28 EDT Emergency [facility] Emergency Department [address] [place] [address] Hemarthrosis of right hip (Primary Dx) Discharge Disposition: Home or Self Care 06/19/2024 Travel 06/19/2024 12:35 EDT - 06/19/2024 14:01 EDT Emergency [facility] Emergency Department [address] [address] Contusion of left elbow, initial encounter (Primary Dx) Discharge Disposition: Home or Self Care from Last 3 Months Allergies Active Allergy Reactions Criticality Noted Date [...] Problems Problem Noted Date Diagnosed Date Thrombophilia ([facility]) 12/27/2023 Factor V Leiden ([facility]) 12/27/2023 Antiphospholipid syndrome ([facility]) 12/27/2023 Generalized anxiety disorder 12/27/2023 Insomnia 12/27/2023 Restless legs 12/27/2023 Visual disturbance 12/27/2023 Essential hypertension 12/27/2023 Mitral valve regurgitation 12/27/2023 Disorder of intervertebral disc of cervical spin e 12/27/2023 Spinal stenosis of lumbar region 12/27/2023 Seizure ([facility]) 12/27/2023 Amnesia 12/27/2023 Ataxia 12/27/2023 Paresthesia 12/27/2023 Palpitations 12/27/2023 High glucose level 12/27/2023 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 Single intersegmental PE; Lovenox to warfarin x 6 months. 2) Thrombosis panel: Factor V Leiden heterozygote and lupus anticoagulant documented off warfarin 07/2012. D-dimer <200 3) Family hx of FVL and VTE. Mother with FVL and hormone provoked PE. Mother's aunt had VTE. Mother's dad and mom also had VTE Immunizations Name Administration Dates Next Due Covid-19 mRNA Vaccine ([facility]ER NA COVID-19) PF 0.5 ml IM (12 yrs+) 10/27/2021,04/23/2021,03/24/2021 Hepatitis A 07/15/2015 Hepatitis B 08/12/2020, 0,02/28/2020, 015,07/15/2015 Influenza (split) 08/18/2021, 0,09/13/2019, 017,08/19/2015,09/02/2014,10/24/2013,06/2012 Td 05/22/2008 Tdap Vaccine =>7YO IM 06/20/2020,01/01/2013 Social History Tobacco Use Types Packs/Day Years [...] 13:38 EST Sexual Orientation Not on file Last Filed Vital Signs Vital Sign Reading [...] Body Mass Index 24.03 06/28/2023 1853 EDT Functional Status Functional Status Response Date of [...] concentrating, remembering, or making decisions? Yes 2022 Plan of Treatment Not on file Procedures Procedure Name Priority Date/Time Associated Diagnosis [...] 0.9 - 1.1 Ratio 08/27/2024 18:10 EDT [facility] Pro Time 59.9(H) 9.7 - 12.8 secs 08/27/2024 18:10 EDT [facility] Blood VENOUS BLOOD / Unknown Venipuncture / Unknown 08/27/2024 17:46 EDT 08/27/2024 17:48 EDT Narrative [facility] - 08/27/2024 18:10 EDT Moderate Intensity Coumadin INR = 2.0-3.0 Adjustments in anticoagulant therapy dose should be based on the INR and NOT on the Protime. Cleopatra Lopez PA-C HEMATOLOGY & PF4 OR DERABLES [facility] [address] [place] [address] * CT ABDOMEN PELVIS W CONTRAST (08/27/2024 [...] REGARDING THIS REPORT PLEASE CALL [facility] AT [phone] Narrative 08/27/2024 17:00 EDT PROCEDURE INFORMATION: Exam: [...] OR CONCERNS REGARDING THIS REPORT PLEASE CALL [facility] [phone] Cleopatra Lopez PA-C IMG CT ORDERABLES * COMPLETE BLOOD COUNT AND DIFFERENTIAL (08/27/2024 15:55 EDT) WBC 7.40 4.00 - 10.40 K/cmm 08/27/2024 16:02 [facility] RBC 4.62 4.36 - 5.78 M/cmm 08/27/2024 16:02 [facility] Hemoglobin 14.4 13.8 - 17.3 g/dL 08/27/2024 16:02 [facility] HCT 41.0 39.5 - 50.2 % 08/27/2024 16:02 [facility] MCV 89 81 - 95 fL 08/27/2024 16:02 [facility] MCH 31.2 27.6 - 33.0 pg 08/27/2024 16:02 [facility] MCHC 35.1 32.8 - 36.4 g/dL 08/27/2024 16:02 [facility] RDW-CV 12.6 <14.2 % 08/27/2024 16:02 [facility] RDW-SD 40.9 <46.0 fl 08/27/2024 16:02 [facility] PLT 223 141 - 377 K/cmm 08/27/2024 16:02 [facility] MPV 9.5 9.5 - 12.7 fL 08/27/2024 16:02 [facility] % Neutrophils 69.1 Not Indicated % 08/27/2024 16:02 [facility] % Lymphocytes 18.9 Not Indicated % 08/27/2024 16:02 [facility] % Monocytes 8.1 Not Indicated % 08/27/2024 16:02 [facility] % Eosinophils 3.5 Not Indicated % 08/27/2024 16:02 [facility] % Basophils 0.3 Not Indicated % 08/27/2024 16:02 [facility] % Immature Grans 0.1 <0.9 % 08/27/2024 16:02 [facility] Absolute Neutrophils 5.11 2.20 - 8.85 K/cmm 08/27/2024 16:02 [facility] Absolute Lymphocytes 1.40 1.09 - 3.30 K/cmm 08/27/2024 16:02 [facility] Absolute Monocytes 0.60 0.10 - 0.80 K/cmm 08/27/2024 16:02 [facility] Absolute Eosinophils 0.26 0.03 - 0.61 K/cmm 08/27/2024 16:02 [facility] ABS Basophils 0.02 0.01 - 0.11 K/cmm 08/27/2024 16:02 [facility] Absolute Immature Grans 0.01 0.00 - 0.06 K/cmm 08/27/2024 16:02 [facility] Type of Differential: Auto 08/27/2024 16:02 [facility] Blood VENOUS BLOOD / Unknown Venipuncture / Unknown 08/27/2024 15:55 EDT 08/27/2024 15:59 EDT Cleopatra Lopez PA-C PACKAGES & DNA PROB E ORDERABLES [facility] [address] [place] [address] * BASIC METABOLIC PANEL (BMP) (08/27/2024 15:55 EDT) Sodium 136 136 - 145 mmol/L 08/27/2024 16:19 [facility] Potassium 4.9 3.5 - 5.0 mmol/L 08/27/2024 16:19 [facility] Comment:Slight hemolysis destiny ntified, interpret with caution as hemolysis will elevate potassium result. Chloride 99 96 - 110 mmol/L 08/27/2024 16:19 [facility] CO2 Total 30 22 - 32 mmol/L 08/27/2024 16:19 [facility] Anion Gap 7 5 - 14 mmol/L 08/27/2024 16:19 [facility] Glucose 91 70 - 99 mg/dl 08/27/2024 16:19 [facility] Calcium 9.3 8.5 - 10.5 mg/dL 08/27/2024 16:19 [facility] BUN 13 10 - 26 mg/dL 08/27/2024 16:19 [facility] Comment: Slight hemolysis identified, interpret with caution as results may be affected due to hemolysis. Creatinine 0.83 0.66 - 1.25 mg/dL 08/27/2024 16:19 [facility] eGFR 108 >60 mL/min/1.7 3m2 08/27/2024 16:19 [facility] Blood VENOUS BLOOD / Unknown Venipuncture / Unknown 08/27/2024 15:55 EDT 08/27/2024 15:59 EDT Cleopatra Lopez PA-C CHEMISTRY & BLOOD G ORDERABLES [facility] [address] [place] [address] * XR ELBOW LEFT 3 OR MORE VIEWS (06/19/2024 13:18 EDT) Anatomical Region Laterality Modality Left Computed Radiogr aphy 06/19/2024 13:3 4 EDT Impressions 06/19/2024 13:34 EDT No acute findings. [id number] Narrative 06/19/2024 13:34 EDT XR ELBOW LEFT 3 OR MORE VIEWS ?? Signs and Symptoms/Comments: ??elbow pain Comparison: None. FINDINGS: Left elbow: 4 views. Bones: No acute fracture or malalignment. Degenerative changes: No significant degenerative changes. Soft tissues: Possible tiny smooth calcified osteochondral loose body in the posterior recess of the elbow. No elbow joint effusion visible. Resulting Agency Comment [id number] Procedure Note Diego Perry MD - 06/19/2024 XR ELBOW LEFT 3 OR MORE VIEWS Signs and Symptoms/Comments: elbow pain Comparison: None. FINDINGS: Left elbow: 4 views. Bones: No acute fracture or malalignment. Degenerative changes: No significant degenerative changes. Soft tissues: Possible tiny smooth calcified osteochondral loose body inthe posterior recess of the elbow. No elbow joint effusion visible. IMPRESSION No acute findings. [id number] Vanna Mckeon PA-C IM DIAGNOSTIC IMAGING ORDERABLES * HCV RNA DETECT QUANT (10/23/2020 8:24 EST) HCV RNA Qualitative Undetected Undetected 10/26/2020 13:40 EST [facility] Blood VENOUS BLOOD / Unknown 10/23/2020 8:24 EST 10/23/2020 22:03 EST Narrative [facility] - 10/26/2020 13:40 EST The quantification range of this assay is 15 IU/mL to 100,000,000 IU/mL. ??Testing was performed on the ANTONELLA Ampliprep/ANTONELLA TaqMan HCV v2.0 ([employer] Provider Outr Resulting Lab CHEMISTRY & BLOOD GAS ORDERABLES [facility] [address] [place] [address] from Last 3 Months or Most Recently Relevant to Health Maintenance Care Teams Streetcar Repairer Helper Relationship Specialty Start Date End Date Zofia Cruz MD [address] [place] [address] PCP - General 06/28/23
--- OUTSIDE RECORDS SUMMARY | 2024-09-16 15:26 | XMS_ITS | Encounter Summary ---
Author Organization [facility] Address [address] [place] [address] Care Team Providers Care Fill Plant Operator Name Role Phone Zofia Cruz MD Primary Care Provider [phone] Reason for Visit * Reason Comments Elbow Pain Pt with right elbow pain and difficulty/pain grasping things x 10 days ago when he bumped it on a door frame. Unable to get comfortable, couldn't sleep last night. Tried JONA wrap. Encounter Details Date Type Department Care Team (Late st Contact Info) Description 06/19/2024 12:35 EDT - 06/19/2024 14:01 EDT Emergency [facility] Emergency Department [address] [place] [address] Contusion of left elbow, initial encounter (Primary [...] Sign Reading Time Taken Comments Blood Pressure 135/75 06/19/2024 1233 EDT Pulse 61 06/19/2024 1233 EDT Temperature 36.9 ??C (98.5 ??F) 06/19/2024 1233 EDT Respiratory Rate 16 06/19/2024 1233 EDT Oxygen Saturation 97% 06/19/2024 1233 EDT Inhaled Oxygen Concentration - - Weight 79.8 kg (176 lb) 06/19/2024 1233 EDT Height - - Body Mass Index 23.87 06/28/2023 1853 EDT documented in this encounter [...] this encounter Discharge Instructions * Discharge Instructions* Vanna Mckeon PA-C - 06/19/2024 13:55 EDT the xray did not show any bony problems. expect this will heal with time. can use the jona wrap to try and prevent further bumping. ok to take tylenol and apply lidoderm as needed. follow up with your pcp if you are not improving as expected after another 2-3 weeks. documented in this encounter Medications at Time of Discharge Medication Sig Dispensed Refills Start Date End Date clonAZEPAM (KLONOPIN) 2 mg tablet Take 0.5 mg by mouth 2 times daily. docusate sodium (COLACE) 100 mg capsule Take 100 mg by mouth as needed for Constipation. lithium carbonate 150 mg capsule Take 1 Capsule by mouth daily. losartan (COZAAR) 25 mg tablet Take 1 Tablet by mouth daily. 09/09/2023 losartan (COZAAR) 50 mg tablet Take 1 Tablet by mouth daily. 11/07/2023 MEDICAL MARIJUANAIndications:Varnish Dipper nafisa hepatitis C without hepatic coma (HCC-CMS) [...] Tablet by mouth daily. sofosbuvir-velpatasvir 400-100 mg tabletIndications:Chronic hepatitis C [...] Means Destination Comment s Home or Self [facility] documented in this encounter ED Notes * Patricia Bustillos - 06/19/2024 1359 EDT Left elbow compression wrapped with an jona wrap. Ready for discharge. * Vanna Mckeon PA-C - 06/19/2024 1220 EDT Emergency Department Visit Medical Decision Making 48-year-old right-handed male presents for evaluation of left elbow pain after he struck the elbow on a door frame 10 days ago. He has no notable swelling or bruising. He is neurovascularly intact and full has full strength and range of motion. X-ray does not show fracture. Recommend continued supportive care for contusion with Tylenol and Lidoderm. An Jona wrap was applied as he reports he keeps bumping it on things and feels this may help protect it. He will follow-up with his doctor as needed Imaging (independent interpretation) of the X-ray: no fracture seen Medical Decision Making Problems Addressed: Contusion of left elbow, initial encounter: complicated acute illness or injury Amount and/or Complexity of Data Reviewed Radiology: ordered. Final diagnoses: Contusion of left elbow, initial encounter Disposition: Discharged Chief complaint: left elbow pain ENOC Solomon is a 48 y.o. male with Hep C, hypercoagulation disorder on warfarin who presents to the ED for left elbow pain. started after he hit the area on a doorframe 10 days ago. he doesn't have numbness or weakness but has pain in the elbow when he grasps things or moves the elbow. it is moving well. concerned that the pain is still so intense 10 days in. he is right handed. History was provided by: the patient Records reviewed include: Patient's pertinent PMH, FH, SH were reviewed and edited as necessary. Nursing notes reviewed. A medical screening exam was performed. Physical Exam BP 135/75 Pulse 61 Temp 36.9 ??C (98.5 ??F) (Temporal) Resp 16 Wt 79.8 kg (176 lb) SpO2 97% BMI 23.87 kg/m?? Physical Exam Constitutional: Well appearing in no acute distress HEENT: Normocephalic, atraumatic, pupils equal and reactive to light Neck: Full ROM Heart: Normal rate. Warm and well perfused. Lungs: No respiratory distress. Skin: No overt rashes on exposed skin Extremities: Moving spontaneously, warm and well perfused. left elbow: no notable swelling or brusing, full ROM, normal strength distally, intact cap refill and pulses. has tenderness at lateral epicondyle Neuro: Awake, alert, oriented. Speech is fluent. Psych: Normal affect, appropriate speech, appropriate eye contact. Procedures Procedures documented in this encounter Plan of Treatment Not on file documented as of this encounter Procedures Procedure Name Priority Date/Time Associated Diagnosis Comments XR ELBOW LEFT 3 OR MORE VIEWS STAT 06/19/2024 13:18 EDT documented in this encounter Results * XR ELBOW LEFT 3 OR MORE VIEWS (06/19/2024 13:18 EDT) Anatomical Region Laterality Modality Left Computed Radiogr aphy 06/19/2024 13:3 4 EDT Impressions 06/19/2024 13:34 EDT No acute findings. [id number] Narrative 06/19/2024 13:34 EDT XR ELBOW LEFT 3 OR MORE VIEWS ?? Signs and Symptoms/Comments: ??elbow pain Comparison: None. FINDINGS: Left elbow: 4 views. Bones: No acute fracture or malalignment. Degenerative changes: No significant degenerative changes. Soft tissues: Possible tiny smooth calcified osteochondral loose body in the posterior recess of the elbow. No elbow joint effusion visible. Resulting Agency Comment [id number] Procedure Note Diego Perry MD - 06/19/2024 XR ELBOW LEFT 3 OR MORE VIEWS Signs and Symptoms/Comments: elbow pain Comparison: None. FINDINGS: Left elbow: 4 views. Bones: No acute fracture or malalignment. Degenerative changes: No significant degenerative changes. Soft tissues: Possible tiny smooth calcified osteochondral loose body inthe posterior recess of the elbow. No elbow joint effusion visible. IMPRESSION No acute findings. [id number] Vanna Mckeon PA-C IMG DIAGNOSTIC IMAGING ORDERABLES documented in this encounter Visit Diagnoses Diagnosis Contusion of left elbow, initial encounter- Primary documented in this encounter Care Teams Fill Plant Operator Relationship Specialty Start Date End Date Zofia Cruz MD [address] [place] [id number] PCP - General 06/28/23 documented as of this encounter
--- OUTSIDE RECORDS SUMMARY | 2024-09-16 15:27 | XMS_ITS | Encounter Summary ---
Author Organization [facility] Address [address] [place] [address] Care Team Providers Care Roller Coaster Operator Name Role Phone Nicole Velasquez MD Primary Care Provider [phone] Encounter Details Date Type Department Care Team (Late st Contact Info) Description 10/30/2020 Specialty Pharmacy [facility] [place] [address], [place] [phone] Felicitas Rodriguez, [facility] [address] [place], [place] [id number] Social History Tobacco Use Types Packs/Day Years [...] encounter Progress Notes * Felicitas Rodriguez - 10/30/2020 1148 EST [facility] ?? Medication Therapy Follow Up: ?? Franky Solomon is a 45 y.o. male being treated with Epclusa x12 weeks for hepatitis C. The patient started treatment on 09/02/20 and will continue this therapy until 11/24/20. ?? MD:??Gurpreetofarnaldo Regimen:??Epclusa x12 weeks?? Genotype:??2 Treatment: Experienced: Sovosbuvir + ribavirin?? Cirrhosis: Y Fibrosis Stage:??F3-F4 (fibroscan 08/26/20)?? Social Hx:??history of illicit drug use?? Specialty [facility]? Start date:??09/02/20?Lab: Lives in [facility] -??PCP or Randi?? Week Date SCr Hct/Hgb AST ALT HCV RNA Quant Pretreatment 01/13/20 0.78 N/A 98 215 2,116,869 7 ??10/23/20 ??0.82 43/14.6 22 25 Undetected 12 post-tx ??02/23/21 ? Called patient to discuss results of on-treatment labs, including undetected HCV VL. He is very excited to hear this. Discussed he will continue Epclusa to complete 12 weeks of treatment, he verbalized understanding. Will plan to call patient at end of treatment, around 11/24/20, to check in and confirm Epclusa successfully completed. He will call if any questions or concerns prior to this. SVR labs ordered, will be due in February. Will confirm with patient where he would like these orders sent. Felicitas Rodriguez, AnnaD Pharmacist Clinician - Gastroenterology/Hepatology 10/30/2020 documented in this encounter Plan of Treatment Not on file documented as of this encounter Visit Diagnoses Diagnosis Chronic hepatitis C without hepatic coma (HCC-CMS)- Primary Chronic hepatitis C without mention of hepatic coma documented in this encounter Care Teams Roller Coaster Operator Relationship Specialty Start Date [place] [address] PCP - General 01/13/20 06/27/23 documented as of this encounter
--- OUTSIDE RECORDS SUMMARY | 2024-09-16 15:27 | XMS_ITS | Encounter Summary ---
Author Organization [facility] Address [address] [place] [address] Care Team Providers Care Optical Glass Silverer Name Role Phone Nicole Velasquez MD Primary Care Provider [phone] Reason for Visit * Reason Onset Date Comments Appointment Related 04/02/2020 Encounter Details Date Type Department Care Team (Late st Contact Info) Description 04/02/2020 Telephone [facility] Cardiology - [place] [place], [place] [id number] Shakir Ortega MD [address] [place] [address] [address] [place] [address] Appointment Related Social History Tobacco Use Types Packs/Day Years Used Date Smoking Tobacco: Every Day Cigarettes 0.5 15 Smokeless Tobacco: Current Comments:pt has lozenges to quit smoking Alcohol Use Standard Drinks/Week Comments No 0 (1 standard drink = 0.6 oz pur e alcohol) Sex and Gender Information Value Date Recorded [...] encounter Miscellaneous Notes * Telephone Encounter - Marisela Oviedo - 04/02/2020 0920 EDT CALLED TO REMIND AND CHECK IN PT FOR APPT ON 04.02.20. NO ANSWER documented in this encounter Plan of Treatment Not on file documented as of this encounter Visit Diagnoses Not on filedocumented in this encounter Care Teams Optical Glass Silverer Relationship Specialty Start Date End Date Nicole Velasquez MD [address] [address] PCP - General 01/13/20 06/27/23 documented as of this encounter
--- OUTSIDE RECORDS SUMMARY | 2024-09-16 15:27 | XMS_ITS | Encounter Summary ---
Author Organization [facility] Address [address] [place] [address] Care Team Providers Care Transit Proof Machine Operator Name Role Phone Lukas Contreras MD Primary Care Provider [phone] Reason for Visit * Reason Onset Date Comments Labs Only 12/30/2019 Encounter Details Date Type Department Care Team (Late st Contact Info) Description 12/30/[address] [facility] Cardiology - [place] [place] [address] Shakir Ortega MD [address] [facility] Level 1 [place] [address] Hyperlipidemia, unspecified hyperlipidemia type (Primary Dx) Social History Tobacco Use Types [...] on file documented as of this encounter Results * (ABNORMAL) LIPID RX PROFILE (BUN, CREATININE, GLUCOSE, AST, ALT, URIC ACID, CK, CHOLESTEROL, TRIG, HDL, LDL) (01/13/2020 13:45 EST) Cholesterol 162 See Note mg/dL 01/13/2020 14:31 [facility] Comment: Acceptable: ?<200 mg/dL Borderline High: 200-239 mg/dL High: ?> or = 240 mg/dL HDL 73 See Note mg/dL 01/13/2020 14:31 [facility] Comment: Low: ? <40 mg/dL Normal: ??40-60 mg/dL High: ?>60 mg/dL LDL, Calculated 77 See Note mg/dL 01/13/2020 14:31 [facility] Comment: Optimal: ? <100 mg/dL Near Optimal: ?100-129 mg/dL Borderline High: 130-159 mg/dL High: ?160-189 mg/dL Very High: ? > or = 190 mg/dL Triglyceride 61 See Note mg/dL 01/13/2020 14:31 [facility] Comment: Normal: ? <150 mg/dL Borderline High: ??150 - 199 mg/dL High: ? 200 - 499 mg/dL Very High: ?> or = 500 mg/dL Chol/HDL Ratio 2.2 See Note 01/13/2020 14:31 [facility] Comment: No reference range has been established for CHOL/HDL ratio. Non HDL Cholesterol 89 See Note mg/dL 01/13/2020 14:31 [facility] Comment: Desirable: ?<130 mg/dL Borderline High: ??130-159 mg/dL High: ? 160-189 mg/dL Very High: ?> or = 190 mg/dL Glucose 92 70 - 100 mg/dL 01/13/2020 14:31 [facility] BUN 14 10 - 26 mg/dL 01/13/2020 14:31 [facility] Creatinine 0.78 0.66 - 1.25 mg/dL 01/13/2020 14:31 [facility] eGFR 110 >60 mL/min/1.7 3m2 01/13/2020 14:31 [facility] Comment:eGFR calculated leah byers CKD-EPI equation for non- Americans. Multiply eGFR by 1.16 for patients. CK 116 <=250 U/L 01/13/2020 14:31 [facility] AST 98(H) 15 - 46 U/L 01/13/2020 14:31 [facility] ALT 215(H) <50 U/L 01/13/2020 14:31 [facility] Uric Acid 4.0 3.9 - 9.0 mg/dL 01/13/2020 14:31 [facility] Blood VENOUS BLOOD / Unknown Venipuncture / Unknown 01/13/2020 13:45 EST 01/13/2020 14:04 EST Narrative [facility] - 01/13/2020 14:31 EST 1 Shakir Ortega MD CHEMISTRY & BLOOD G ORDERABLES Performing Organization Address City/State/[facility] Co de Phone Number [facility] [address] [place] [address] documented in this encounter Visit Diagnoses Diagnosis Hyperlipidemia, unspecified hyperlipidemia type- Primary documented in this encounter Care Teams Transit Proof Machine Operator Relationship Specialty Start Date End Date Lukas Contreras MD [address] [place] [address] PCP - General 03/04/16 01/12/20 documented as of this encounter
--- OUTSIDE RECORDS SUMMARY | 2024-09-16 15:27 | XMS_ITS | Encounter Summary ---
Author Organization [facility] Address [address] [place] [address] Care Team Providers Care Game Programer Name Role Phone Nicole Velasquez MD Primary Care Provider [phone] Encounter Details Date Type Department Care Team (Late st Contact Info) Description 09/23/2020 Specialty Pharmacy [facility] [address] [place], [place] [phone] Felicitas Rodriguez [facility] [address] [place], [place] [phone] Social History Tobacco Use Types Packs/Day Years [...] on filedocumented in this encounter Care Teams Game Programer Relationship Specialty Start Date End [place] [address] PCP - General 01/13/20 06/27/23 documented as of this encounter
--- OUTSIDE RECORDS SUMMARY | 2024-09-16 15:27 | XMS_ITS | Encounter Summary ---
Author Organization [facility] Address [address] [place] [address] Care Team Providers Care Student Career Development Specialist Name Role Phone Lukas Contreras MD Primary Care Provider [phone] Encounter Details Date Type Department Care Team (Late st Contact Info) Description 05/31/2019 Historical Results Only [facility] Radiology Results [address] [place], [place] [address] Ashish Chen MD [address] [place] [phone] Social History Tobacco Use Types Packs/Day Years [...] Procedure Name Priority Date/Time Associated Diagnosis Comments HEAD W WO CONTRAST 05/31/2019 16:45 EDT documented in this encounter Results * HEAD W WO CONTRAST (05/31/2019 16:45 EDT) Anatomical Region Laterality Modality Head Other 05/31/2019 16:4 5 EDT Narrative 05/31/2019 16:48 EDT ? EXAM: MAGNETIC RESONANCE IMAGING/BRAIN W/ EX. D/ (1457) ? CLINICAL INFORMATION: ? R56.9 SEIZURE ? R/O SEIZURE FOCUS ? BRAIN W/WITHOUT CONTRAST ? Signs and Symptoms/Comments: ??R56.9 SEIZURE, R/O SEIZURE FOCUS ? Comparisons: MR brain and MRA head on 03/27/2018. ? Technique: Contrast-enhanced MR brain was performed with the ? following sequences: Sagittal T2 FLAIR, axial T2, axial T2 FLAIR, ? axial T1, axial DWI, axial susceptibility, coronal T2, coronal T2 ? FLAIR, coronal 3-D gradient, coronal T1, and post gadolinium axial ? and coronal T1 fat-sat. 7 cc Gadavist intravenous contrast was ? administered. ? FINDINGS: ? The images are mildly motion degraded. Best study obtainable at this ? time. ? Brain: No intra- or extra-axial mass, fluid collection, or abnormal ? enhancement is present. The mesial temporal lobes are normal in ? signal and morphology. No cortical malformation or heterotopic rees ? matter is identified. There is no mass effect or midline shift. The ? basal cisterns are patent. The ventricles are unremarkable. ? Rees-white differentiation is preserved. No restricted diffusion is ? identified to suggest acute ischemia. The major flow voids are ? preserved. No abnormal susceptibility is present to suggest ? hemorrhage. ? Orbits: The globes and orbits are normal. ? Paranasal sinuses: The paranasal sinuses are clear. ? Middle ear cavities ?? Mastoid air cells: The mastoid air cells and ? middle ear cavities are clear. ? Bones: The osseous structures are unremarkable. ? Extracranial soft tissues: The extracranial soft tissues are ? unremarkable. ? IMPRESSION: ? PAGE 1 ? Signed Report ? (CONTINUED) ? Unremarkable contrast-enhanced MR brain. ? REPORT SIGNED IN OTHER VENDOR SYSTEM 05/31/2019 ?Reported By: Diego Perry MD ? CC: ? Transcribed Date/Time: 05/31/2019 (8268) ? Office Runner: ? Printed Date/Time: 08/07/2019 (1732) ? PAGE 2 ? Signed Report ? Procedure Note Diego Perry MD, - 09/24/2019 EXAM: MAGNETIC RESONANCE IMAGING/BRAIN W/ EX. D/ (1457) CLINICAL INFORMATION: R56.9 SEIZURE R/O SEIZURE FOCUS BRAIN W/WITHOUT CONTRAST Signs and Symptoms/Comments: R56.9 SEIZURE, R/O SEIZURE FOCUS Comparisons: MR brain and MRA head on 03/27/2018. Technique: Contrast-enhanced MR brain was performed with the following sequences: Sagittal T2 FLAIR, axial T2, axial T2 FLAIR, axial T1, axial DWI, axial susceptibility, coronal T2, coronal T2 FLAIR, coronal 3-D gradient, coronal T1, and post gadolinium axial and coronal T1 fat-sat. 7 cc Gadavist intravenous contrast was administered. FINDINGS: The images are mildly motion degraded. Best study obtainable atthis time. Brain: No intra- or extra-axial mass, fluid collection, or abnormal enhancement is present. The mesial temporal lobes are normal in signal and morphology. No cortical malformation or heterotopic rees matter is identified. There is no mass effect or midline shift. The basal cisterns are patent. The ventricles are unremarkable. Rees-white differentiation is preserved. No restricted diffusion is identified to suggest acute ischemia. The major flow voids are preserved. No abnormal susceptibility is present to suggest hemorrhage. Orbits: The globes and orbits are normal. Paranasal sinuses: The paranasal sinuses are clear. Middle ear cavities Mastoid air cells: The mastoid air cells and middle ear cavities are clear. Bones: The osseous structures are unremarkable. Extracranial soft tissues: The extracranial soft tissues are unremarkable. IMPRESSION: PAGE 1 Signed Report (CONTINUED) Unremarkable contrast-enhanced MR brain. REPORT SIGNED IN OTHER VENDOR SYSTEM 05/31/2019 Reported By: Diego Perry MD CC: Transcribed Date/Time: 05/31/2019 (9344) Office Runner: Printed Date/Time: 08/07/2019 (0667) PAGE 2 Signed Report Ashish Chen MD [facility] ORDERABLES documented in this encounter Visit Diagnoses Not on filedocumented in this encounter Care Teams Student Career Development Specialist Relationship Specialty Start Date End Date Lukas Contreras MD [address] [place] [address] PCP - General 03/04/16 01/12/20 documented as of this encounter
--- OUTSIDE RECORDS SUMMARY | 2024-09-16 15:27 | XMS_ITS | Encounter Summary ---
Author Organization [facility] Address [address] [place] [address] Care Team Providers Care Case Fitter Name Role Phone Lukas Cifuentes MD Primary Care Provider [phone] Reason for Visit * Reason Onset Date Comments Results 10/12/2015 Encounter Details Date Type Department Care Team (Late st Contact Info) Description 10/12/2015 Telephone [facility] Gastroenterology - [facility] [address] [place], [place] [phone] Sierra Patterson, RN Results Social History Tobacco Use Types Packs/Day Years [...] encounter Miscellaneous Notes * Telephone Encounter - Sierra Patterson RN - 10/12/2015 1143 EST The patient was called with results of week #4 sovaldi/ribavirin HCV PCR undetected & instructions to repeat standing bloodwork orders in 4 weeks & remain on the current doses of his medcations.he verbalized understanding & compliance. Lab slips & appointment card were sent to him today. documented in this encounter Plan of Treatment Not on file documented as of this encounter Visit Diagnoses Diagnosis Hep C w/ coma, chronic- Primary Chronic hepatitis C with hepatic coma documented in this encounter Care Teams Case Fitter Relationship Specialty Start Date End Date Lukas Cifuentes MD PCP - General 07/02/15 03/03/16 documented as of this encounter
--- OUTSIDE RECORDS SUMMARY | 2024-09-16 15:27 | XMS_ITS | Encounter Summary ---
Author Organization [facility] Address [address] [place] [address] Care Team Providers Care Dramatic Teacher Name Role Phone Nicole Velasquez MD Primary Care Provider [phone] Encounter Details Date Type Department Care Team (Late st Contact Info) Description 08/31/2020 Specialty Pharmacy [facility] Ambulatory Pharm[facility] - [place] [address] [place], [place] [phone] Felicitas Rodriguez, [facility] 1 [place], [place] [phone] Social History Tobacco Use Types Packs/Day Years [...] encounter Progress Notes * Felicitas Rodriguez - 08/31/2020 0913 EDT [facility] Gastroenterology/Hepatology Clinic Medication Therapy Initiation Note Franky Solomon is a 44 y.o. male who will be starting treatment with Epclusa for Hepatitis C. Patient is treatment experienced (previously treated with: sofosbuvir + ribavirin). : Brent Regimen: Epclusa x12 weeks Genotype: 2 Treatment: Experienced: Sovosbuvir + ribavirin Cirrhosis: Y Fibrosis Stage: F3-F4 (fibroscan 08/26/20) Social Hx: history of illicit drug use Specialty Pharmacy: [facility] ?? Start date: 09/02/20 Lab: Lives in [facility] or [facility] Week Date SCr Hct/Hgb AST ALT HCV RNA Quant Pretreatment 01/13/20 0.78 N/A 98 215 2,116,869 4 ??09/30/20 ? 12 post-tx ??02/23/21 ? I performed a complete review of the patient???s medical record, including medications, immunizations, and allergies. Clinically relevant drug interactions identified and management plan: Current Outpatient Medications Medication ??? clonAZEPAM (KLONOPIN) 2 mg tablet ??? MEDICAL MARIJUANA ??? methadone (DOLOPHINE) 10 mg tablet ??? sofosbuvir-velpatasvir 400-100 mg tablet ??? warfarin (COUMADIN) 1 mg tablet ??? warfarin (COUMADIN) 5 mg tablet No current facility-administered medications for this visit. ??? Warfarin: Discussed recommendation for increased INR monitoring with patient. PCP checks his INR - has an appointment scheduled 09/09. He will also call his PCP's office tomorrow to let them knowhe is starting Epclusa and needs increased INR monitoring. ??? No longer taking multiple medications: quetiapine, mirtazapine, methocarbamol - removed from medication list. ??? Patient instructed to call [facility] if starts any new medications. Recommended avoiding OTC heartburn medications. Assessment & Plan Indication, effectiveness, safety, and convenience of specialty medications were reviewed today. Counseled the patient on the following: ??? Therapeutic rationale / Goals of therapy discussed ??? Dosage and administration discussed - 1 tablet by mouth once daily ??? Safe handling, storage, and disposal reviewed ??? Therapy contraindications discussed ??? Possible adverse effects and management discussed - headache (can take acetaminophen, limited to 2000 mg / day), fatigue ??? Possible drug and prescription drug interactions discussed ??? Adherence and missed doses discussed - he will take it at the same time as his warfarin to makeit part of his routine ??? Lab monitoring and follow-up discussed. ??? Additional self-management strategies reviewed Potential barriers to therapy: No planned travel during medication therapy No concerns with medication adherence identified Patient advised if hospitalized, to ensure HCV treatment is brought to hospital so no doses are missed Information regarding Epclusa and hepatitis C provided to patient. Vaccinations: HBV, recommended patient follow up with PCP Emergency contact: verified patient's listed emergency contact in chart is best person to contact if we cannot reach him. ??? Name: Fabiola (mother) ??? Phone number: [phone] Follow up: ??? Phone call: week 3 for Epclusa refill ??? Labs: week 4 (ordered, will confirm with patient at follow up where these should be sent) and SVR12 ??? Clinic appointment: after SVR12 with Dr[address] Brent Rodriguez, PharmD Pharmacist Clinician - Gastroenterology/Hepatology 08/31/2020 documented in this encounter Plan of Treatment Not on file documented as of this encounter Visit Diagnoses Diagnosis Chronic hepatitis C without hepatic coma (HCC-CMS)- Primary Chronic hepatitis C without mention of hepatic coma documented in this encounter Discontinued Medications Medication Sig Discontinue Reason Start Date End Da te methocarbamoL (ROBAXIN) 500 mg tablet Take 500 mg by mouth 2 times daily. Therapy completed 03/11/2020 08/31/2020 mirtazapine (REMERON) 15 mg tablet Take 45 mg by mouth every evening Therapy completed 08/31/2020 mirtazapine (REMERON) 45 mg tablet Take 45 mg by mouth daily. Therapy completed 08/31/2020 nicotine polacrilex (COMMIT) [address] 4 mg inside cheek every 2 hours. Therapy completed 08/31/2020 quetiapine (SEROQUEL) 200 mg tablet Take 200 mg by mouth at bedtime Therapy completed 08/31/2020 documented as of this encounter Historical Medications * This list may reflect changes made after this encounter. Medication Sig Dispensed Refills Start Date End Date docusate sodium (COLACE) 100 mg capsule Take 100 mg by mouth as needed for Constipation. added in this encounter Care Teams Dramatic Teacher Relationship Specialty Start Date End Date Nicole Velasquez MD [address] [address] PCP - General 01/13/20 06/27/23 documented as of this encounter
--- OUTSIDE RECORDS SUMMARY | 2024-09-16 15:27 | XMS_ITS | Encounter Summary ---
Author Organization [facility] Address [address] [place] [address] Care Team Providers Care Business Center Manager Name Role Phone Nicole Velasquez MD Primary Care Provider [phone] Encounter Details Date Type Department Care Team (Late st Contact Info) Description 11/25/2020 Specialty Pharmacy [facility] Ambulatory Pharmacy - [facility] [address] [place], [place] [phone] Felicitas Rodriguez [facility] 1 [place], [place] [phone] Social History Tobacco Use Types Packs/Day Years [...] encounter Progress Notes * Felicitas Rodriguez - 11/25/2020 1252 EST [facility]??Gastroenterology/Hepatology Clinic ?? Medication Therapy Follow Up: ?? Franky Solomon??is a 45 y.o.??male??being treated with Epclusa x12 weeks??for hepatitis C. The patient started treatment on??09/02/20, planned end date: 11/24/20. ?? MD:??Lidofskjae Regimen:??Epclusa x12 weeks?? Genotype:??2 Treatment: Experienced: Sovosbuvir + ribavirin?? Cirrhosis: Y Fibrosis Stage:??F3-F4 (fibroscan 08/26/20)?? Social Hx:??history of illicit drug use?? Specialty Pharmacy:??[facility]? Start date:??09/02/20?Lab: Lives in [facility]??PCP or [facility]?? Week Date SCr Hct/Hgb AST ALT HCV RNA Quant Pretreatment 01/13/20 0.78 N/A 98 215 2,116,869 7 ??10/23/20 ??0.82 43/14.6 22 25 Undetected 12 post-tx ??02/23/21 ? Called patient to check in at end of treatment. LM for patient to return call. Will confirm end date of Epclusa and where he would like to complete SVR12 labs. Felicitas Rodriguez PharmD Pharmacist Clinician - Gastroenterology/Hepatology 11/25/2020 * Felicitas Rodriguez - 11/25/2020 1252 EST Called patient, SAUL again. Will fax SVR12 lab orders to PCP's office and [facility]. Will follow up withpatient when SVR12 labs are due. Felicitas Rodriguez PharmD Pharmacist Clinician - Gastroenterology/Hepatology 12/02/2020 documented in this encounter Plan of Treatment Not on file documented as of this encounter Visit Diagnoses Not on filedocumented in this encounter Care Teams Business Center Manager Relationship Specialty Start Date End Date Nicole Velasquez MD [address] [address] PCP - General 01/13/20 06/27/23 documented as of this encounter
--- OUTSIDE RECORDS SUMMARY | 2024-09-16 15:27 | XMS_ITS | Encounter Summary ---
Author Organization [facility] Address [address] [place] [address] Care Team Providers Care Stained Glass Window Designer Name Role Phone Lukas Cifuentes MD Primary Care Provider [phone] Encounter Details Date Type Department Care Team (Late st Contact Info) Description 08/13/2015 Orders Only [facility] Gastroenterology - Main [place] [address] [place] [address] Oleg Tipton [facility] [address] [place] [address] Social History Tobacco Use Types Packs/Day Years [...] No 07/03/2015 documented as of this encounter Ordered Prescriptions Prescription Sig Dispensed Refills Start Date End Da te ribavirin (COPEGUS) 200 mg tablet Take 3 Tabs by mouth 2 times daily Attn: Specialty Pharmacy 168 Tab 2 08/13/2015 08/17/2015 sofosbuvir (SOVALDI) 400 mg tablet Take 400 mg by mouth daily Attn: Specialty Pharmacy 28 Tab 2 08/13/2015 08/17/2015 documented in this encounter Plan of Treatment Not on file documented as of this encounter Visit Diagnoses Not on filedocumented in this encounter Care Teams Stained Glass Window Designer Relationship Specialty Start Date End Date Lukas Cifuentes MD PCP - General 07/02/15 03/03/16 documented as of this encounter
--- OUTSIDE RECORDS SUMMARY | 2024-09-16 15:27 | XMS_ITS | Encounter Summary ---
Author Organization [facility] Address [address] [place] [address] Care Team Providers Care Motor Coach Driver Name Role Phone Lukas Cifuentes MD Primary Care Provider [phone] Reason for Visit * Reason Onset Date Comments Other 12/02/2015 lab reminder. Encounter Details Date Type Department Care Team (Late st Contact Info) Description 12/02/2015 Telephone [facility] Gastroenterology - [facility] [address] [place] [address] Emma Almazan, RN [address] [place] [address] Other (lab reminder.) Social History Tobacco Use Types Packs/Day Years [...] encounter Miscellaneous Notes * Telephone Encounter - Emma Almazan RN - 12/02/2015 1203 EST Tried calling patient, no answer. Will try again tomorrow. documented in this encounter Plan of Treatment Not on file documented as of this encounter Visit Diagnoses Not on filedocumented in this encounter Care Teams Motor Coach Driver Relationship Specialty Start Date End Date Lukas Cifuentes MD PCP - General 07/02/15 03/03/16 documented as of this encounter
--- OUTSIDE RECORDS SUMMARY | 2024-09-16 15:27 | XMS_ITS | Encounter Summary ---
Author Organization [facility] Address [address] [place] [address] Care Team Providers Care Centrifugal Station Operator Name Role Phone Lukas Cifuentes MD Primary Care Provider [phone] Encounter Details Date Type Department Care Team (Late st Contact Info) Description 07/24/2015 8:00 EDT - 07/24/2015 23:59 EDT Hospital Encounter [address] [address] Jarocho Kennedy MD PhD [address] [facility] Level [address] [place] [phone] Discharge Disposition: Home or Self Care Social [...] 07/03/2015 documented as of this encounter Discharge Diagnoses Diagnosis V72.5 RADIOLOGICAL EXAM NEC[ICD-9-CM] documented in this encounter Medications at Time of Discharge Medication Sig Dispensed Refills Start Date End Date clonAZEPAM (KLONOPIN) 2 mg tablet Take 0.5 mg by mouth 2 times daily. MEDICAL MARIJUANAIndications:C hronic hepatitis C without hepatic coma (HCC-CMS) 0.5 g daily methadone (DOLOPHINE) 10 mg tabletIndications:Systematic Theology Professor nafisa hepatitis C without hepatic coma (HCC-CMS) Take 1 Tablet by mouth 2 times daily. warfarin (COUMADIN) 5 mg tablet Take 2 Tablets by mouth daily. Take in addition to 1mg tabs for total daily dose of 13mg enoxaparin (LOVENOX) 60 mg/0.6 mL injectionIndications:A ntiphospholipid antibody positive,Other pulmonary embolism and infarction Inject 60 mg into the skin daily. 10 Syringe 0 01/21/2013 09/08/2015 mirtazapine (REMERON) 15 mg tablet Take 45 mg by mouth every evening 08/31/2020 quetiapine (SEROQUEL) 200 mg tablet Take 200 mg by mouth at bedtime 08/31/2020 documented as of this encounter Discharge Disposition Disposition Code Departure Means Destination Home or Self Snf documented in this encounter Plan of Treatment Not on file documented as of this encounter Visit Diagnoses Not on filedocumented in this encounter Care Teams Centrifugal Station Operator Relationship Specialty Start Date End Date Lukas Cifuentes MD PCP - General 07/02/15 03/03/16 documented as of this encounter
--- OUTSIDE RECORDS SUMMARY | 2024-09-16 15:27 | XMS_ITS | Encounter Summary ---
Author Organization [facility] Address [address] [place] [address] Care Team Providers Care Automatic Pilot Mechanic Name Role Phone Lukas Contreras MD Primary Care Provider [phone] Encounter Details Date Type Department Care Team (Late st Contact Info) Description 05/02/2019 Historical Results Only [facility] Lab - Main [address] [address] Ashish Chen MD [address] [place] [phone] Social History Tobacco Use Types Packs/Day [...] Name Priority Date/Time Associated Diagnosis Comments PROTIME Routine 05/02/2019 15:15 EDT documented in this encounter Results * (ABNORMAL) PROTIME (05/02/2019 15:15 EDT) [place] [facility] [place](H[place] 0.9 - 1.2 05/02/2019 15:59 EDT [facility] Comment: Low intensity INR: 2.0-3.0 High intensity INR: Consult Coag Dept. 05/02/2019 15:1 5 EDT 05/02/2019 15:15 EDT Narrative [facility] - 08/06/2019 18:37 EDT Does PT Have a Latex Allergy? NO Ashish Perry Chen MD HEMATOLOGY & PF4 ORD ERABLES [facility] Organization Address City/State/ZIP Co de Phone Number [facility] documented in this encounter Visit Diagnoses Not on filedocumented in this encounter Care Teams Automatic Pilot Mechanic Relationship Specialty Start Date End Date Lukas Contreras MD [address] [address] PCP - General 03/04/16 01/12/20 documented as of this encounter
--- OUTSIDE RECORDS SUMMARY | 2024-09-16 15:27 | XMS_ITS | Encounter Summary ---
Author Organization [facility] Address [address] [place] [address] Care Team Providers Care Assistant Credit Manager Name Role Phone Lukas Cifuentes MD Primary Care Provider [phone] Reason for Visit * Reason Onset Date Comments Other 12/17/2015 Encounter Details Date Type Department Care Team (Late st Contact Info) Description 12/17/[address] [facility] Gastroenterology - [facility] [address] [place] [address] Sierra Patterson, RN Other Social History Tobacco Use Types Packs/Day [...] Telephone Encounter - Sierra Patterson RN - 12/17/2015 1121 EST The patient was reached & asked if he has received the labs slips for end of Hep C tx bloodworksent to him from our office on 12/03/15. He states he thinks he received them, not sure, took some lab slips for blood draw to his PCP office for a scheduled draw next week.. Will check with that office & fax orders if needed. documented in this encounter Plan of Treatment Not on file documented as of this encounter Visit Diagnoses Not on filedocumented in this encounter Care Teams Assistant Credit Manager Relationship Specialty Start Date End Date Lukas Cifuentes MD PCP - General 07/02/15 03/03/16 documented as of this encounter
--- OUTSIDE RECORDS SUMMARY | 2024-09-16 15:27 | XMS_ITS | Encounter Summary ---
Author Organization [facility] Address [address] [place] [address] Care Team Providers Care Intensive Care Ambulance Paramedic Name Role Phone Nicole Velasquez MD Primary Care Provider [phone] Encounter Details Date Type Department Care Team (Late st Contact Info) Description 08/28/2020 Specialty Pharmacy [facility] [address] [place], [place] [id number] Felicitas Rodriguez, [facility] [address] [place], [place] [id number] Social History Tobacco Use Types Packs/Day Years [...] encounter Progress Notes * Felicitas Rodriguez - 08/28/2020 0932 EDT Franky Solomon is a 44 y.o. male presenting for initial workup for treatment of Hepatitis C. MD: Brent Regimen: Epclusa x12 weeks Genotype: 2 Treatment: Experienced: Sovosbuvir + ribavirin Cirrhosis: Y Fibrosis Stage: F3-F4 (fibroscan 08/26/20) Social Hx: history of illicit drug use Specialty Pharmacy: TBD Start date: TBD Lab: Lives in [place] - will confirm preferred lab with patient Week Date SCr Hct/Hgb AST ALT HCV RNA Quant Pretreatment 01/13/20 0.78 N/A 98 215 2,116,869 4 12 post-tx Additional labs: Week Date Bilirubin INR Albumin PLT Pretreatment 05/02/19 0.5 3.7 (on warfarin) 4.3 N/A Current medications: Current Outpatient Medications Medication ??? clonAZEPAM (KLONOPIN) 2 mg tablet ??? MEDICAL MARIJUANA ??? methadone (DOLOPHINE) 10 mg tablet ??? methocarbamoL (ROBAXIN) 500 mg tablet ??? mirtazapine (REMERON) 15 mg tablet ??? mirtazapine (REMERON) 45 mg tablet ??? nicotine polacrilex (COMMIT) 4 mg lozenge ??? quetiapine (SEROQUEL) 200 mg tablet ??? warfarin (COUMADIN) 1 mg tablet ??? warfarin (COUMADIN) 5 mg tablet No current facility-administered medications for this visit. Allergies Assessed: Reviewed Drug Interactions and Management Plan: ??? Warfarin: Coadministration has not been studied but based on metabolism and clearance a pharmacokinetic interaction is unlikely. Warfarin is metabolised by CYP2C9 and CY which are not affected by sofosbuvir/velpatasvir. However, frequent monitoring of INR is recommended as this may change as a result of improved liver function. Will discuss increased INR monitoring recommendation with patient during teach. ??? DDI with current medication list checked using https://www.hep-druginteractions.org/wrap checker ??? Will confirm medication list accuracy with patient prior to starting HCV treatment Comorbidities: Reviewed Hepatic Function Assessment: Child Freire: unable to calculate (patient on warfarin). Clinically compensated per Dr. Kennedy's note - no ascites or encephalopathy. Renal Function Assessment: CrCl: >60 mL/min Assessment: Female of childbearing potential: No Coinfection/Vaccination Assessment: Vaccine Date Result HAV 01/13/20 Ab positive, immune HBV 01/13/20 Core -ve, SAb -ve - vaccination indicated HIV N/A Influenza N/A Due Prior authorization submission will be initiated upon completion of above evaluation. The physicianand patient will be contacted with the result of the insurance company's coverage determination. Anna PopD Pharmacist Clinician - Gastroenterology/Hepatology 08/28/2020 documented in this encounter Plan of Treatment Not on file documented as of this encounter Visit Diagnoses Not on filedocumented in this encounter Discontinued Medications Medication Sig Discontinue Reason Start Date End Da te ribavirin (COPEGUS) 200 mg tablet Take 3 Tabs by mouth 2 times daily Attn: Specialty Pharmacy Therapy completed 08/17/2015 08/28/2020 sofosbuvir (SOVALDI) 400 mg tablet Take 400 mg by mouth daily Attn: Specialty Pharmacy Therapy completed 08/17/2015 08/28/2020 documented as of this encounter Care Teams Intensive Care Ambulance Paramedic Relationship Specialty Start Date End Date Nicole Velasquez MD [address] [address] PCP - General 01/13/20 06/27/23 documented as of this encounter
--- OUTSIDE RECORDS SUMMARY | 2024-09-16 15:27 | XMS_ITS | Encounter Summary ---
Author Organization [facility] Address [address] [place] [address] Care Team Providers Care Shake Splitter Name Role Phone Nicole Velasquez MD Primary Care Provider [phone] Reason for Visit * Reason Onset Date Comments Prior Auth, Medication 08/27/2020 Encounter Details Date Type Department Care Team (Late st Contact Info) Description 08/27/2020 Telephone [facility] Gastroenterology - [address] [address] Jarocho Kennedy MD PhD [address] [place] [address], [address] [place] [phone] Prior Auth, Medication Social History Tobacco Use Types Packs/Day Years Used Date Smoking Tobacco: Former Cigarettes 0.5 15 1 998 - 2012 Smokeless Tobacco: Current Comments:pt has [...] Dispensed Refills Start Date End Da te sofosbuvir-velpatasvir 400-100 mg tabletIndications:Chronic hepatitis C without hepatic coma (HCC-CMS) Take 1 Tab by mouth daily. 28 Tab 2 08/31/2020 documented in this encounter Miscellaneous Notes * Telephone Encounter - Marvin Guzman - 08/27/2020 1432 EDT Prior Authorization Approval Medication: Epclusa x 12 weeks Approved: through 11/20/20 Authorization Number: [id number] Benefits Information or Other Notes: Pharmacy: [facility] Prior Authorization Submission Process Medication: Epclusa x 12 weeks Insurance: [employer] Part D Date PA Request Received: 08/26/20 PA Submission Date: 08/28/20 CMM Min: [id number] Submitted by: marvin Phone: [phone] documented in this encounter Plan of Treatment Not on file documented as of this encounter Visit Diagnoses Diagnosis Chronic hepatitis C without hepatic coma (HCC-CMS)- Primary Chronic hepatitis C without mention of hepatic coma documented in this encounter Care Teams Shake Splitter Relationship Specialty Start Date End Date Nicole Velasquez MD [address] [address] PCP - General 01/13/20 06/27/23 documented as of this encounter
--- OUTSIDE RECORDS SUMMARY | 2024-09-16 15:27 | XMS_ITS | Encounter Summary ---
Author Organization [facility] Address [address] [place] [address] Care Team Providers Care Baton Twirler Name Role Phone Lukas Contreras MD Primary Care Provider [phone] Encounter Details Date Type Department Care Team (Late st Contact Info) Description 05/02/2019 Historical Results Only [facility] [place] [address] [address] Ashish Chen MD [address] [place] [phone] Social History Tobacco Use Types Packs/Day [...] Diagnosis Comments PROTIME Routine 05/02/2019 15:15 EDT BUN Routine 05/02/2019 15:15 EDT TSH Routine 05/02/2019 15:15 EDT GLUCOSE, SERUM Routine 05/02/2019 15:15 EDT FOLATE Routine 05/02/2019 15:15 EDT VITAMIN B12 Routine 05/02/2019 15:15 EDT CREATININE Routine 05/02/2019 15:15 EDT AMMONIA Routine 05/02/2019 15:15 EDT HEPATIC FUNCTION PANEL (ALB,ALK PHOS,ALT,AST,DBIL,TOT ROGE,TOT PROT) Routine 05/02/2019 15:15 EDT ELECTROLYTES Routine 05/02/2019 15:15 EDT documented in this encounter Results * ELECTROLYTES (05/02/2019 15:15 EDT) Chloride 104 96 - 110 mmol/L 05/02/2019 16:13 EDT [facility] CO2 Total 26 21 - 32 mEq/L 05/02/2019 16:13 EDT [facility] Anion Gap 9 0 - 18 05/02/2019 16:13 EDT [facility] Potassium 3.9 3.5 - 5.0 mEq/L 05/02/2019 16:13 EDT [facility] Sodium 139 136 - 145 mEq/L 05/02/2019 16:13 EDT [facility] 05/02/2019 15:1 5 EDT 05/02/2019 15:15 EDT Narrative [facility] - 05/02/2019 16:13 EDT Does PT Have a Latex Allergy? NO Ashish Chen MD CHEMISTRY & BLOOD GA S ORDERABLES [facility] * (ABNORMAL) HEPATIC FUNCTION PANEL (ALB,ALK PHOS,ALT,AST,DBIL,TOT ROGE,TOT PROT) (05/02/2019 15:15 EDT) Albumin % 4.3 3.4 - 4.9 g/dL 05/02/2019 16:13 EDT [facility] ALKALINE PHOSPHATASE - [facility] 85 38 - 126 U/L [facility] BIL[facility] CALC - [facility] 0.3 0.0 - 0.4 mg/dL 05/02/2019 16:13 EDT [facility] BILIRUBIN TOTAL 0.5 0.2 - 1.3 mg/dL 05/02/2019 16:13 [facility] Unconjugated Bilirubin 0.2 0.0 - 1.1 mg/dL 05/02/2019 16:13 [facility] TOTAL PROTEIN - [facility] 7.2 6.2 - 8.2 gm/dL 05/02/2019 16:13 [facility] SGOT/AST - [facility] 163(H) 17 - 59 U/L 05/02/2019 16:13 [facility] SGPT/ALT - [facility] 436(H) 21 - 72 U/L [facility] 15:1 5 EDT 05/02/2019 15:15 EDT [facility] - 05/02/2019 16:13 EDT Does PT Have a Latex Allergy? NO Ashish Chen MD CHEMISTRY & BLOOD GA S ORDERABLES [facility] * GLUCOSE, SERUM (05/02/2019 15:15 EDT) GLUCOSE - [facility] 86 70 - 100 mg/dL 05/02/2019 16:13 EDT [facility] 05/02/2019 15:1 5 EDT 05/02/2019 15:15 EDT [facility] - 05/02/2019 16:13 EDT Does PT Have a Latex Allergy? NO Ashish Chen MD CHEMISTRY & BLOOD GA S ORDERABLES Performing Organization Address [facility] Co de Phone Number [facility] * CREATININE (05/02/2019 15:15 EDT) Pathologist [facility] CREATININE 0.75 0.66 - 1.25 mg/dL 05/02/2019 16:13 EDT [facility] eGFR >60 05/02/2019 16:13 EDT [facility] Comment: Chronic renal impairment is defined as GFR <60 Multiply result by 1.210 for patients. 05/02/2019 15:1 5 EDT 05/02/2019 15:15 EDT Narrative [facility] - 05/02/2019 16:13 EDT Does PT Have a Latex Allergy? NO Ashish Chen MD CHEMISTRY & BLOOD GA S ORDERABLES Performing Organization Address [facility] Co de Phone Number [facility] * BUN (05/02/2019 15:15 EDT) Pathologist [facility] BUN [facility] 18 10 - 26 mg/dL 05/02/2019 16:13 EDT [facility] 05/02/2019 15:1 5 EDT 05/02/2019 15:15 EDT Narrative [facility] - 05/02/2019 16:13 EDT Does PT Have a Latex Allergy? NO Ashish Chen MD CHEMISTRY & BLOOD GA S ORDERABLES Performing Organization Address [facility]/ZIP Co de Phone Number [facility] * TSH (05/02/2019 15:15 EDT) Pathologist [facility] THYROID STIM [facility] 1.64 0.46 - 4.68 uIU/ml 05/02/2019 17:34 EDT [facility] Comment: The results of this assay can be falsely lowered due to the consumption of Biotin. 05/02/2019 15:1 5 EDT 05/02/2019 15:15 EDT [facility] - 05/02/2019 17:34 EDT Does PT Have a Latex Allergy? NO Ashish Chen MD CHEMISTRY & BLOOD GA S ORDERABLES Performing Organization Address [facility]/ZIP Co de Phone Number [facility] * FOLATE (05/02/2019 15:15 EDT) [facility] FOLIC ACID [facility] 6.73 2.76- >20.0 ng/mL 05/02/2019 17:34 EDT [facility] Comment: The results of this assay can be falsely elevated due to the consumption of Biotin. 05/02/2019 15:1 5 EDT 05/02/2019 15:15 EDT [facility] - 05/02/2019 17:34 EDT Does PT Have a Latex Allergy? NO Ashish Chen MD CHEMISTRY & BLOOD GA S ORDERABLES Performing Organization Address [facility] Co de Phone Number [facility] * VITAMIN B12 (05/02/2019 15:15 EDT) [facility] VITAMIN B12 - [facility] 496 239 - 931 pg/mL 05/02/2019 17:34 EDT [facility] Comment: The results of this assay can be falsely elevated due to the consumption of Biotin. 05/02/2019 15:1 5 EDT 05/02/2019 15:15 EDT [facility] - 05/02/2019 17:34 EDT Does PT Have a Latex Allergy? NO Ashish Chen MD CHEMISTRY & BLOOD GA S ORDERABLES Performing Organization Address [facility]/ZIP Co de Phone Number [facility] * AMMONIA (05/02/2019 15:15 EDT) [facility] Ammonia 15 9.0 - 30.0 umol/L 05/02/2019 15:35 EDT [facility] Comment: Glucose at or above 600 mg/dl can cause a decrease of 8 to 40 umol/L in ammonia concentration. 05/02/2019 15:1 5 EDT 05/02/2019 15:15 EDT Narrative [facility] - 05/02/2019 15:35 EDT Does PT Have a Latex Allergy? NO Ashish Chen MD CHEMISTRY & BLOOD GA S ORDERABLES Performing Organization Address City/[facility]/ZIP Co de Phone Number [facility] * (ABNORMAL) PROTIME (05/02/2019 15:15 EDT) PROTHROMBIN TIME - [facility] 40.4(H) 9.5 - 13.4 SECONDS 05/02/2019 15:59 EDT [facility] 05/02/2019 15:1 5 EDT 05/02/2019 15:15 EDT Narrative [facility] - 08/06/2019 18:37 EDT Does PT Have a Latex Allergy? NO Ashish Chen MD HEMATOLOGY & PF4 ORD ERABLES Performing Organization Address City/[facility]/ZIP Co de Phone Number [facility] documented in this encounter Visit Diagnoses Not on filedocumented in this encounter Care Teams Baton Twirler Relationship Specialty Start Date End Date Lukas Contreras MD [address] [address] PCP - General 03/04/16 01/12/20 documented as of this encounter
--- OUTSIDE RECORDS SUMMARY | 2024-09-16 15:27 | XMS_ITS | Encounter Summary ---
Author Organization [facility] Address [address] [place] [address] Care Team Providers Care Welt Sole Layer Name Role Phone Lukas Cifuentes MD Primary Care Provider [phone] Reason for Visit * Reason Onset Date Comments Other 12/03/2015 lab reminder. Encounter Details Date Type Department Care Team (Late st Contact Info) Description 12/03/2015 Telephone [facility] Gastroenterology - [facility] [address] [place] [address] Emma Almazan RN [address] [place] [address] Other (lab reminder.) Social History Tobacco Use [...] Telephone Encounter - Emma Almazan RN - 12/03/2015 1003 EST Called patient and there was no answer, third attempt. Nurse will mail lab slips to patient with instructions on where to get labs drawn. documented in this encounter Plan of Treatment Not on file documented as of this encounter Visit Diagnoses Not on filedocumented in this encounter Care Teams Welt Sole Layer Relationship Specialty Start Date End Date Lukas Cifuentes MD PCP - General 07/02/15 03/03/16 documented as of this encounter
--- OUTSIDE RECORDS SUMMARY | 2024-09-16 15:27 | XMS_ITS | Encounter Summary ---
Author Organization [facility] Address [address] [place] [address] Care Team Providers Care Portable Pinch Riveter Name Role Phone Lukas Cifuentes MD Primary Care Provider [phone] Reason for Visit * Reason Onset Date Comments Results 07/30/2015 Pt calling for r esults of ultrasound & to find out what the next step in his care will be. Encounter Details Date Type Department Care Team (Late st Contact Info) Description 07/30/2015 Telephone [facility] Gastroenterology - [facility] [address] [place], [place] [id number] Jarocho Kennedy MD PhD [address] [facility], [address] [place] [address] Results (Pt calling for results of ultrasound & to find out what the next step in his care will be.) Social History Tobacco Use Types Packs/Day Years [...] Telephone Encounter - Sierra Patterson RN - 07/30/2015 1213 EDT Patient was called & made aware will send a result letter once he has reviewed the U/S results from 07/24/15 & a further plan of care. Hew verbalized understanding and will wait forthe letter. documented in this encounter Plan of Treatment Not on file documented as of this encounter Visit Diagnoses Not on filedocumented in this encounter Care Teams Portable Pinch Riveter Relationship Specialty Start Date End Date Lukas Cifuentes MD PCP - General 07/02/15 03/03/16 documented as of this encounter
--- OUTSIDE RECORDS SUMMARY | 2024-09-16 15:27 | XMS_ITS | Encounter Summary ---
Author Organization [facility] Address [address] [place] [address] Care Team Providers Care Ctrs Name Role Phone Nicole Velasquez MD Primary Care Provider [phone] Zofia Cruz MD Primary Care Provider [phone] Encounter Details Date Type Department Care Team (Late st Contact Info) Description 10/23/2020 Lab Requisition [facility] Pathology & Laboratory Medicine - [address] [id number] Outr Resulting Lab, Provider Social History Tobacco Use Types Packs/Day Years [...] Procedure Name Priority Date/Time Associated Diagnosis Comments HCV RNA DETECT QUANT Routine 10/23/2020 8:24 EST documented in this encounter Results * HCV RNA DETECT QUANT (10/23/2020 8:24 EST) HCV RNA Qualitative Undetected Undetected 10/26/2020 13:40 EST [facility] Blood VENOUS BLOOD / Unknown 10/23/2020 8:24 EST 10/23/2020 22:03 EST Narrative [facility] - 10/26/2020 13:40 EST The quantification range of this assay is 15 IU/mL to 100,000,000 IU/mL. ??Testing was performed on the ANTONELLA Ampliprep/ANTONELLA TaqMan HCV v2.0 ([employer] Provider Outr Resulting Lab CHEMISTRY & BLOOD GAS ORDERABLES [facility] [address] [place] [address] documented in this encounter Visit Diagnoses Not on filedocumented in this encounter Care Teams Ctrs Relationship Specialty Start Date End Date Nicole Velasquez MD [address] [address] PCP - General 01/13/20 06/27/23 Zofia Cruz MD [address] [place] [phone] PCP - General 06/28/23 documented as of this encounter
--- OUTSIDE RECORDS SUMMARY | 2024-09-16 15:27 | XMS_ITS | Encounter Summary ---
Author Organization [facility] Address [address] [place] [address] Care Team Providers Care Stone Mason Name Role Phone Lukas Contreras MD Primary Care Provider [phone] Encounter Details Date Type Department Care Team (Late st Contact Info) Description 04/21/2016 Abstract [facility] [address] [place] [address] Lukas Contreras MD [address] [facility] [address] [place] [address] Social History Tobacco Use Types Packs/Day Years [...] Sig Dispensed Refills Start Date End Date warfarin (COUMADIN) 1 mg tablet Take 3 Tablets by mouth daily. Take in addition to 10mg tag for at total daily dose of 13mg mirtazapine (REMERON) 45 mg tablet Take 45 mg by mouth daily. 08/31/2020 nicotine polacrilex (COMMIT) [address] 4 mg inside cheek every 2 hours. 08/31/2020 added in this encounter Care Teams Stone Mason Relationship Specialty Start Date End Date Lukas Contreras MD [address] [address] PCP - General 03/04/16 01/12/20 documented as of this encounter
--- OUTSIDE RECORDS SUMMARY | 2024-09-16 15:27 | XMS_ITS | Encounter Summary ---
Author Organization [facility] Address [address] [place] [address] Care Team Providers Care Maintenance Millwright Name Role Phone Nicole Velasquez MD Primary Care Provider [phone] Reason for Visit * Reason Onset Date Comments Returning Call 03/13/2020 Encounter Details Date Type Department Care Team (Late st Contact Info) Description 03/13/2020 Telephone [facility] Cardiology - [address] [place], [place] [phone] Shakir Ortega MD [address] [place] [address] [address] [place] [address] Returning Call Social History Tobacco Use Types Packs/Day Years [...] encounter Miscellaneous Notes * Telephone Encounter - Elviar Loya - 03/13/2020 1040 EDT Reason for Call: Returning Call Summary/Symptoms: Patient returning call to confirm tele video appointment for 5-8 please send invite to Elvira Loya 03/13/2020 10:40 documented in this encounter Plan of Treatment Not on file documented as of this encounter Visit Diagnoses Not on filedocumented in this encounter Care Teams Maintenance Millwright Relationship Specialty Start Date End Date Nicole Velasquez MD [address] [address] PCP - General 01/13/20 06/27/23 documented as of this encounter
--- OUTSIDE RECORDS SUMMARY | 2024-09-16 15:27 | XMS_ITS | Encounter Summary ---
Author Organization [facility] Address [address] [place] [address] Care Team Providers Care Logistics Support Name Role Phone Lukas Contreras MD Primary Care Provider [phone] Encounter Details Date Type Department Care Team (Latest Contact Info) Description 05/31/2019 14:55 EDT - 05/31/2019 23:59 EDT Hospital Encounter [facility] [address] [place] [address] Unknown, Provider, Discharge Disposition: Home or Self Care Social [...] No 07/03/2015 documented as of this encounter Medications at Time of Discharge Medication Sig Dispensed Refills Start Date End Date clonAZEPAM (KLONOPIN) 2 mg tablet Take 0.5 mg by mouth 2 times daily. MEDICAL MARIJUANAIndications:Ch ronic hepatitis C without hepatic coma (HCC-CMS) 0.5 g daily methadone (DOLOPHINE) 10 mg tabletIndications:Chron ic hepatitis C without hepatic coma (HCC-CMS) Take 1 Tablet by mouth 2 times daily. warfarin (COUMADIN) 1 mg tablet Take 3 Tablets by mouth daily. Take in addition to 10mg tag for at total daily dose of 13mg warfarin (COUMADIN) 5 mg tablet Take 2 Tablets by mouth daily. Take in addition to 1mg tabs for total daily dose of 13mg mirtazapine (REMERON) 15 mg tablet Take 45 mg by mouth every evening 08/31/2020 mirtazapine (REMERON) 45 mg tablet Take 45 mg by mouth daily. 08/31/2020 nicotine polacrilex (COMMIT) [address] 4 mg inside cheek every 2 hours. 08/31/2020 quetiapine (SEROQUEL) 200 mg tablet Take 200 mg by mouth at bedtime 08/31/2020 ribavirin (COPEGUS) 200 mg tablet Take 3 Tabs by mouth 2 times daily Attn: [facility] 168 Tab 2 08/17/2015 08/28/2020 sofosbuvir (SOVALDI) 400 mg tablet Take 400 mg by mouth daily Attn: [facility] 28 Tab 2 08/17/2015 08/28/2020 documented as of this encounter Discharge Disposition Disposition Code Departure Means Destination Home or Self Residential documented in this encounter Plan of Treatment Not on file documented as of this encounter Visit Diagnoses Not on filedocumented in this encounter Care Teams Logistics Support Relationship Specialty Start Date End Date Lukas Contreras MD [address] [place] [address] PCP - General 03/04/16 01/12/20 documented as of this encounter
--- OUTSIDE RECORDS SUMMARY | 2024-09-16 15:27 | XMS_ITS | Encounter Summary ---
Author Organization [facility] Address [address] [place] [address] Care Team Providers Care Diabetes Educator Name Role Phone Lukas Cifuentes MD Primary Care Provider [phone] Encounter Details Date Type Department Care Team (Late st Contact Info) Description 08/17/2015 Orders Only [facility] Gastroenterology - [facility] [place] [address] [place] [address] Oleg Tipton [facility] [address] [place] [address] Social History Tobacco Use Types Packs/Day Years [...] Dispensed Refills Start Date End Da te sofosbuvir (SOVALDI) 400 mg tablet Take 400 mg by mouth daily Attn: [facility] 28 Tab 2 08/17/2015 08/28/2020 ribavirin (COPEGUS) 200 mg tablet Take 3 Tabs by mouth 2 times daily Attn: [facility] 168 Tab 2 08/17/2015 08/28/2020 documented in this encounter Plan of Treatment Not on file documented as of this encounter Visit Diagnoses Not on filedocumented in this encounter Discontinued Medications Medication Sig Discontinue Reason Start Date End Da te ribavirin (COPEGUS) 200 mg tablet Take 3 Tabs by mouth 2 times daily Attn: [facility]ty [facility] Reorder 08/13/2015 08/17/2015 sofosbuvir (SOVALDI) 400 mg tablet Take 400 mg by mouth daily Attn: [facility] Reorder 08/13/2015 08/17/2015 documented as of this encounter Care Teams Diabetes Educator Relationship Specialty Start Date End Date Lukas Cifuentes MD PCP - General 07/02/15 03/03/16 documented as of this encounter
--- OUTSIDE RECORDS SUMMARY | 2024-09-16 15:27 | XMS_ITS | Encounter Summary ---
Author Organization [facility] Address [address] [place] [address] Care Team Providers Care Explosives Worker Name Role Phone Nicole Velasquez MD Primary Care Provider Reason for Referral * Referral (Routine) - Closed Specialty Diagnoses / Procedures Referred By Contact Referred To Contact Gastroenterology and Hepatology Diagnoses Chronic hepatitis C without hepatic coma (HCC-CMS) Procedures VIBRATION CONTROLLED TRANSIENT ELASTOGRAPHY (VCTE) Jarocho Kennedy MD PhD [address] [place] [phone] [facility] [address] [place] [address] Referral ID Status Reason Start Date Expiration Date Visits Re quested Visits Authorized [id number] Closed 01/13/2020 1 1 Reason for Visit * Reason Comments New Patient Visit Hepatitis C * Consult (Routine) - New Request Specialty Diagnoses / Procedures Referred By Contact Referred To Contact Gastroenterology and Hepatology Diagnoses Chronic hepatitis C (HCC-CMS) Nicole Velasquez MD [address] [address] Jarocho Kennedy MD PhD [address] [place] [phone] Referral ID Status Reason Start Date Expiration Date V isits Requested Visits Authorized [id number] New Request 1 1 Encounter Details Date Type Department Care Team (Late st Contact Info) Description 01/13/2020 13:00 EST Office Visit [facility] Gastroenterology - [facility] [address] [place], [place] [address] Jarocho Kennedy MD PhD [address] [place] [address], [address] [place] [address] Chronic hepatitis C without hepatic coma (HCC-CMS) (Primary Dx) Social History Tobacco Use Types [...] Sign Reading Time Taken Comments Blood Pressure 130/78 01/13/2020 1239 EST Pulse 87 01/13/2020 1239 EST Temperature - - Respiratory Rate - - Oxygen Saturation - - Inhaled Oxygen Concentration - - Weight 76.7 kg (169 lb) 01/13/2020 1239 EST Height 182.5 cm (5' 11.85) 01/13/2020 1239 EST Body Mass Index 23.02 01/13/2020 1239 EST documented in this encounter Functional Status [...] as of this encounter Progress Notes * Jarocho Kennedy MD - 01/13/2020 1300 EST This office note has been dictated. documented in this encounter Consult Notes * Jarocho Kennedy MD - 01/13/2020 0000 EST [facility] GASTROENTEROLOGY AND HEPATOLOGY CONSULTATION - 01/13/2020 Nicole Velasquez MD [address], [address] [place] [address] Velasquez: Thank you for asking me to see your patient, Franky Solomon, in consultation today. As you know, he is a 44-year-old man with chronic hepatitis C. In 1994 he had 2 weeks of jaundice during a time when he was consuming significant quantities of alcohol. He had been using hallucinogenic drugs during this time, and alcohol and drugs were discontinued. With resumption of alcohol and illegal drugs, the patient had intermittent episodes of jaundice, until drug and alcohol use were discontinued permanently in 2002. There have been no other signs or symptoms from the standpoint of liver disease, including ascites, or gastrointestinal bleeding. In 2004, serum hepatitis C antibody was positive; and in 2014, serum hepatitis C viral RNA was detected. I saw the patient in consultation in June 2015, when he was asymptomatic from the standpoint of liver disease, and the FIB-4 score indicated that the probability of advanced hepatic fibrosis was low. Molecular analysis revealed that the hepatitisC viral genotype was 2. Additional serological testing revealed a negative hepatitis A antibody, negative hepatitis B surface antigen, and negative hepatitis B surface antibody. A right upper quadrant abdominal ultrasound in July 2015 demonstrated an echogenic liver, compatible with chronic liver disease or fatty infiltration, and there was no evidence of cirrhosis. The patient initiated a pl anned 12-week course of sofosbuvir and ribavirin. At 4 weeks of treatment, serum hepatitis C viral RNA was detected, but was below the lower limit of quantification. For reasons unknown to me, the patient's previous primary physician discontinued antiviral therapy at 8 weeks. Attempts by my office to reach the patient were unsuccessful, and his primary physician did not contact me about any of these issues. I had also recommended hepatitis A and B vaccination, but it is not evident that these have been administered. The patient has subsequently transferred his care to you. Laboratory testing N 2018 revealed serum hepatitis C viral RNA 631,253 International Units/mL. Past health is otherwise significant for pulmonary embolism with hypercoagulable state, seizure disorder, back pain, mood disorder, paresthesias, and a recent diagnosis of mitral valve regurgitation.. A 10-point review of systems was taken with pertinent positives and negatives listed above. Family history is negative for liver disease. The patient is disabled and lives with his child. There is a history of injection drug use between 1997 and 2002. The patient continues to remain free ofalcohol use and use of parenteral drugs. Adverse reactions to medications include DEPACON, DEPAKOTE, and GABAPENTIN. Current medications include diltiazem, methadone, and warfarin. On physical examination, the patient was found to be a cooperative white man. Weight 169 pounds (BMI 23.0), blood pressure 130/78, pulse 87. The skin revealed no spider angiomata. The sclerae were clear. The oropharynx was clear. The neck revealed no lymphadenopathy. The lungs were clear. Cardiac examination revealed a regular rhythm. The abdomen revealed no obvious ascites. It was soft, nontender, and no masses were appreciated. There was no pretibial edema. Laboratory data obtained in September 2019 showed white blood cell count 2.86, hematocrit 42, platelets 136. Bilirubin 0.6, alkaline phosphatase 88, ALT 313, AST 125, albumin 4.5. The FIB-4 score was 2.3. In summary, Mr Solomon has chronic hepatitis C with evidence of apparent virological failure to prior (truncated) treatment with sofosbuvir and ribavirin. The possibility of reinfection with another hepatitis C genotype cannot be excluded. I will therefore arrange for determination of hepatitis C vi ral genotype. The recent FIB-4 score is indeterminate for the extent of hepatic fibrosis. Because the presence of cirrhosis would influence decision making concerning overall management, I will arrange for transient elastography, a noninvasive test that measures liver stiffness. I will be in touch with you and the patient with the results of all testing. Assuming that no worrisome findings are identified on testing and the hepatitis C viral genotype has not changed (remains 2), the treatment of choice for prior virological failure with sofosbuvir andribavirin is 12 weeks of sofosbuvir/velpatasvir. This is associated with a sustained virological response of over 95%, and few adverse side effects. After review of the test results above, I expect to request authorization for coverage of antiviral drugs from the patient's health plan. Upon approval, antiviral therapy will ensue. Laboratory monitoring will be performed during antiviral treatment,and serum hepatitis C viral RNA will be determined 12 weeks after treatment completion. Under theseconditions, I would plan to see the patient shortly thereafter to review the results and to discussfuture management. My only other recommendation is that you arrange for hepatitis A and B vaccination if there is no serological evidence of prior exposure or immunity. I will test for this and share the results with you. Thank you once again for allowing me to see this patient in consultation with you. Should you have any further questions regarding this evaluation, please feel free to contact me at any time. Sincerely, Jarocho Kennedy MD,PhD 01 36 PM - Jarocho Kennedy MD,PhD tn Dictation ID: [id number] cc: Nicole Velasquez MD, [address], [facility] [address], [place] [address] documented in this encounter Plan of Treatment Scheduled Orders Name Type Priority Associated Diagnoses Orde r Schedule VIBRATION CONTROLLED TRANSIENT ELASTOGRAPHY (VCTE) GI Routine Chronic hepatitis C without hepatic coma (HCC-CMS) Ordered: 01/13/2020 documented as of this encounter Results * (ABNORMAL) HCV RNA QUANT WITH REFLEX TO GENOTYPE (01/13/2020 13:45 EST) HCV RNA Quantitative 2,116,869 (H) Undetected IU/mL 01/14/2020 14:[address] [facility] Comment:Detected Blood VENOUS BLOOD / Unknown Venipuncture / Unknown 01/13/2020 13:45 EST 01/13/2020 14:04 EST Narrative [facility] - 01/14/2020 14:49 EST The quantification range of this assay is 15 IU/mL to 100,000,000 IU/mL. ??Testing was performed on the ANTONELLA Ampliprep/ANTONELLA TaqMan HCV v2.0 ([employer] Jarocho Kennedy MD PhD CHEMISTRY & BLO OD GAS ORDERABLES [facility] [address] [place] [address] * HEPATITIS B SURFACE ANTIBODY (01/13/2020 13:45 EST) Hep B Surface Ab, Quantitative <3.1 See Note mIU/mL 01/14/2020 10:[address] [facility] Comment: Reference Range for Hep B Surface Ab, Quant: Positive: >= 10.0 mIU/mL Negative: ??< 10.0 mIU/mL Patient is presumed to not be immune to infection with Hepatitis B Virus. Hep B Surface Ab, Qualitative Negative See Note 01/14/2020 10:11 [facility] Comment: Reference Range for Hep B Surface Ab, Qual: Unvaccinated: ??Negative Vaccinated: ??Positive Blood VENOUS BLOOD / Unknown Venipuncture / Unknown 01/13/2020 13:45 EST 01/13/2020 14:04 EST Jarocho Kennedy MD PhD CHEMISTRY & BLO OD GAS ORDERABLES Performing Organization Address City/[facility]/ZIP Co de Phone Number [facility] [address] [place] [address] * HEPATITIS B CORE ANTIBODY (TOTAL) (01/13/2020 13:45 EST) Pathologist [facility] Hepatitis B Core Ab, Total Negative Negative 01/14/2020 10:[address] [facility] Blood VENOUS BLOOD / Unknown Venipuncture / Unknown 01/13/2020 13:45 EST 01/13/2020 14:04 EST Jarocho Kennedy MD PhD CHEMISTRY & BLO OD GAS ORDERABLES [facility] [address] [place] [address] * (ABNORMAL) HEPATITIS A TOTAL ANTIBODY W REFLEX (01/13/2020 13:45 EST) Hepatitis A Antibody, Total Positive(A ) Negative 01/14/2020 10:[address] [facility] Blood VENOUS BLOOD / Unknown Venipuncture / Unknown 01/13/2020 13:45 EST 01/13/2020 14:04 EST Narrative [facility] - 01/14/2020 10:44 EST The result of this assay can be falsely elevated (Positive) due to the consumption of Biotin. Jarocho Kennedy MD PhD CHEMISTRY & BLO OD GAS ORDERABLES [facility] [address] [place] [address] documented in this encounter Visit Diagnoses Diagnosis Chronic hepatitis C without hepatic coma (HCC-CMS)- Primary Chronic hepatitis C without mention of hepatic coma documented in this encounter Care Teams Explosives Worker Relationship Specialty Start Date End Date Nicole Velasquez MD [address] [address] PCP - General 01/13/20 06/27/23 documented as of this encounter
--- OUTSIDE RECORDS SUMMARY | 2024-09-16 15:27 | XMS_ITS | Encounter Summary ---
Author Organization [facility] Address [address] [place] [address] Care Team Providers Care Extrusion Utility Worker Name Role Phone Nicole Velasquez MD Primary Care Provider [phone] Encounter Details Date Type Department Care Team (Late st Contact Info) Description 01/13/2020 13:45 EST Phlebotomy Only [facility] 2 Phlebotomy [address] [place], [place] [id number] Marketing Data Specialist, Acc Phlebotomy Hyperlipidemia, unspecified hyperlipidemia type; Chronic hepatitis C without hepatic coma (HCC-CMS) Social History Tobacco Use Types Packs/Day Years [...] Priority Date/Time Associated Diagnosis Comments HCV RNA QUANT WITH REFLEX TO GENOTYPE Routine 01/13/2020 13:45 EST Chronic hepatitis C without hepatic coma (HCC-CMS) HEPATITIS A ANTIBODY IGM Today 01/13/2020 13:45 EST Chronic hepatitis C without hepatic coma (HCC-CMS) HEPATITIS A TOTAL ANTIBODY W REFLEX Routine 01/13/2020 13:45 EST Chronic hepatitis C without hepatic coma (HCC-CMS) HEPATITIS B CORE ANTIBODY (TOTAL) Routine 01/13/2020 13:45 EST Chronic hepatitis C without hepatic coma (HCC-CMS) HCV GENOTYPE, SERUM Today 01/13/2020 13:45 EST Chronic hepatitis C without hepatic coma (HCC-CMS) HEPATITIS B SURFACE ANTIBODY Routine 01/13/2020 13:45 EST Chronic hepatitis C without hepatic coma (HCC-CMS) LIPID RX PROFILE (BUN, CREATININE, GLUCOSE, AST, ALT, URIC ACID, CK, CHOLESTEROL, TRIG, HDL, LDL) Routine 01/13/2020 13:45 EST Hyperlipidemia, unspecified hyperlipidemia type documented in this encounter Results * (ABNORMAL) HCV GENOTYPE, SERUM (01/13/2020 13:45 EST) HCV GENOTYPE 2(A) Undetected 01/16/2020 14:08 EST [facility] Comment: ADDITIONAL INFORMATION This test was performed using the [employer] RealTime HCV Genotype II assay ([employer] [place], [place]). Test Performed by: [facility] [address] [place] [address] Aeronautical Design Engineer: Stephan Medeiros M.D. Ph.D.; CLIA# [id number] Blood VENOUS BLOOD / Unknown Venipuncture / Unknown 01/13/2020 13:45 EST 01/14/2020 14:49 EST Jarocho Kennedy MD PhD CHEMISTRY & BLO OD GAS ORDERABLES [facility] [address] [place] [address] * HEPATITIS A ANTIBODY IGM (01/13/2020 13:45 EST) Pathologist [facility] Hepatitis A Antibody, IgM Negative Negative 01/14/2020 12:[address] [facility] Blood VENOUS BLOOD / Unknown Venipuncture / Unknown 01/13/2020 13:45 EST 01/13/2020 14:04 EST [facility] - 01/14/2020 12:45 EST The results of this assay can be falsely lowered due to the consumption of Biotin. Jarocho Kennedy MD PhD CHEMISTRY & BLO OD GAS ORDERABLES Performing Organization Address [facility] Co de Phone Number [facility] [address] [place] [address] * (ABNORMAL) HCV RNA QUANT WITH REFLEX TO GENOTYPE (01/13/2020 13:45 EST) [facility] HCV RNA Quantitative 2,116,869 (H) Undetected IU/mL 01/14/2020 14:[address] [facility] Comment:Detected Blood VENOUS BLOOD / Unknown Venipuncture / Unknown 01/13/2020 13:45 EST 01/13/2020 14:04 EST [facility] - 01/14/2020 14:49 EST The quantification range of this assay is 15 IU/mL to 100,000,000 IU/mL. ??Testing was performed on the ANTONELLA Ampliprep/ANTONELLA TaqMan HCV v2.0 ([employer] Jarocho Kennedy MD PhD CHEMISTRY & BLO OD GAS ORDERABLES Performing Organization Address [facility]/ZIP Co de Phone Number [facility] [address] [place] [address] * HEPATITIS B SURFACE ANTIBODY (01/13/2020 13:45 EST) [facility] Hep B Surface Ab, Quantitative <3.1 See Note mIU/mL 01/14/2020 10:[address] [facility] Comment: Reference Range for Hep B Surface Ab, Quant: Positive: >= 10.0 mIU/mL Negative: ??< 10.0 mIU/mL Patient is presumed to not be immune to infection with Hepatitis B Virus. Hep B Surface Ab, Qualitative Negative See Note 01/14/2020 10:[address] [facility] Comment: Reference Range for Hep B Surface Ab, Qual: Unvaccinated: ??Negative Vaccinated: ??Positive Blood VENOUS BLOOD / Unknown Venipuncture / Unknown 01/13/2020 13:45 EST 01/13/2020 14:04 EST Jarocho Kennedy MD PhD CHEMISTRY & BLO OD GAS ORDERABLES Performing Organization Address [facility]/ZIP Co de Phone Number [facility] [address] [place] [address] * HEPATITIS B CORE ANTIBODY (TOTAL) (01/13/2020 13:45 EST) Hepatitis B Core Ab, Total Negative Negative 01/14/2020 10:[address] [facility] Blood VENOUS BLOOD / Unknown Venipuncture / Unknown 01/13/2020 13:45 EST 01/13/2020 14:04 EST Jarocho Kennedy MD PhD CHEMISTRY & BLO OD GAS ORDERABLES Performing Organization Address [facility] Co de Phone Number [facility] [address] [place] [address] * (ABNORMAL) HEPATITIS A TOTAL ANTIBODY W REFLEX (01/13/2020 13:45 EST) Hepatitis A Antibody, Total Positive(A ) Negative 01/14/2020 10:[address] [facility] Blood VENOUS BLOOD / Unknown Venipuncture / Unknown 01/13/2020 13:45 EST 01/13/2020 14:04 EST Narrative [facility] - 01/14/2020 10:44 EST The result of this assay can be falsely elevated (Positive) due to the consumption of Biotin. Jarocho Kennedy MD PhD CHEMISTRY & BLO OD GAS ORDERABLES Performing Organization Address [facility] Co de Phone Number [facility] [address] [place] [address] * (ABNORMAL) LIPID RX PROFILE (BUN, CREATININE, GLUCOSE, AST, ALT, URIC ACID, CK, CHOLESTEROL, TRIG, HDL, LDL) (01/13/2020 13:45 EST) Cholesterol 162 See Note mg/dL 01/13/2020 14:31 [facility] Comment: Acceptable: ?<200 mg/dL Borderline High: 200-239 mg/dL High: ?> or = 240 mg/dL HDL 73 See Note mg/dL 01/13/2020 14:31 [facility] Comment: Low: ? <40 mg/dL Normal: ??40-60 mg/dL High: ?>60 mg/dL LDL, Calculated 77 See Note mg/dL 01/13/2020 14:31 [facility] Comment: Optimal: ? <100 mg/dL Near Optimal: ?100-129 mg/dL Borderline High: 130-159 mg/dL High: ?160-189 mg/dL Very High: ? > or = 190 mg/dL Triglyceride 61 See Note mg/dL 01/13/2020 14:31 [facility] Comment: Normal: ? <150 mg/dL Borderline High: ??150 - 199 mg/dL High: ? 200 - 499 mg/dL Very High: ?> or = 500 mg/dL Chol/HDL Ratio 2.2 See Note 01/13/2020 14:31 [facility] Comment: No reference range has been established for CHOL/HDL ratio. Non HDL Cholesterol 89 See Note mg/dL 01/13/2020 14:31 [facility] Comment: Desirable: ?<130 mg/dL Borderline High: ??130-159 mg/dL High: ? 160-189 mg/dL Very High: ?> or = 190 mg/dL Glucose 92 70 - 100 mg/dL 01/13/2020 14:31 [facility] BUN 14 10 - 26 mg/dL 01/13/2020 14:31 [facility] Creatinine 0.78 0.66 - 1.25 mg/dL 01/13/2020 14:31 [facility] eGFR 110 >60 mL/min/1.7 3m2 01/13/2020 14:31 [facility] Comment:eGFR calculated leah byers CKD-EPI equation for non- Americans. Multiply eGFR by 1.16 for patients. CK 116 <=250 U/L 01/13/2020 14:31 [facility] AST 98(H) 15 - 46 U/L 01/13/2020 14:31 [facility] ALT 215(H) <50 U/L 01/13/2020 14:31 [facility] Uric Acid 4.0 3.9 - 9.0 mg/dL 01/13/2020 14:31 [facility] Blood VENOUS BLOOD / Unknown Venipuncture / Unknown 01/13/2020 13:45 EST 01/13/2020 14:04 EST Narrative [facility] - 01/13/2020 14:31 EST 1 Shakir Ortega MD CHEMISTRY & BLOOD G ORDERABLES [facility] [address] [place] [address] documented in this encounter Visit Diagnoses Diagnosis Hyperlipidemia, unspecified hyperlipidemia type Chronic hepatitis C without hepatic coma (HCC-CMS) Chronic hepatitis C without mention of hepatic coma documented in this encounter Care Teams Extrusion Utility Worker Relationship Specialty Start Date End Date Nicole Velasquez MD [address] [address] PCP - General 01/13/20 06/27/23 documented as of this encounter
--- OUTSIDE RECORDS SUMMARY | 2024-09-16 15:27 | XMS_ITS | Encounter Summary ---
Author Organization [facility] Address [address] [place] [address] Care Team Providers Care Video Tape Duplicator Name Role Phone Lukas Cifuentes MD Primary Care Provider [phone] Reason for Visit * Reason Onset Date Comments Results 11/16/2015 Encounter Details Date Type Department Care Team (Late st Contact Info) Description 11/16/2015 Telephone [facility] Gastroenterology - [facility] [address], [place] [id number] Sierra Patterson, RN Results Social History Tobacco [...] Miscellaneous Notes * Telephone Encounter - Sierra Patterson, RN - 11/16/2015 1227 EST Attempt made to remind patient of overdue blood work - no answer on home phone, cell number listed was called Lab slips will be sent out for end of tx bloodwork, now due for 12/01/15. documented in this encounter Plan of Treatment Not on file documented as of this encounter Visit Diagnoses Not on filedocumented in this encounter Care Teams Video Tape Duplicator Relationship Specialty Start Date End Date Lukas Cifuentes MD PCP - General 07/02/15 03/03/16 documented as of this encounter
--- OUTSIDE RECORDS SUMMARY | 2024-09-16 15:27 | XMS_ITS | Encounter Summary ---
Author Organization 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 Chronic hepatitis C without hepatic coma (CMS-HCC) (Primary Dx) Social History Tobacco Use Types [...] RNA QUANT WITH REFLEX TO GENOTYPE Routine 07/03/2015 10:28 EDT Chronic hepatitis C without hepatic coma (CMS-HCC) HEPATITIS A TOTAL ANTIBODY W REFLEX Routine 07/03/2015 10:28 EDT Chronic hepatitis C without hepatic coma (CMS-HCC) HEPATITIS B SURFACE ANTIBODY Routine 07/03/2015 10:28 EDT Chronic hepatitis C without hepatic coma (CMS-HCC) HEPATITIS B SURFACE ANTIGEN Routine 07/03/2015 10:28 EDT Chronic hepatitis C without hepatic coma (CMS-HCC) COMPLETE BLOOD COUNT Routine 07/03/2015 10:28 EDT Chronic hepatitis C without hepatic coma (CMS-HCC) COMPREHENSIVE METABOLIC PANEL (CMP) Routine 07/03/2015 10:28 EDT Chronic hepatitis C without hepatic coma (CMS-HCC) documented in this encounter Results * HCV RNA QUANT WITH REFLEX TO GENOTYPE (07/03/2015 10:28 EDT) Pathologist [facility] HCV RNA Detect Quant 8,548,717 IU/mL 07/06/2015 15:00 EDT [facility] Comment: Reference Range: ??Undetected The quantification range of this assay is 15 IU/mL to 100,000,000 IU/mL. Testing was performed by the Long Ampliprep/Long TaqMan HCV v2.0 ([employer] Blood specimen (specimen) BLOOD SPECIMEN / Unknown 07/03/2015 10:28 EDT 07/03/2015 11:02 EDT Jarocho Kennedy MD PhD CHEMISTRY & BLO OD GAS ORDERABLES [facility] [address] [place] [address] * HEPATITIS B SURFACE ANTIBODY (07/03/2015 10:28 EDT) Pathologist [facility] Hepatitis B Surface Ab Negative 07/03/2015 14:30 EDT [facility] Comment: Reference Range: Unvaccinated: ??Negative Vaccinated: ??Positive HBs Antibody, Quant <5.0 mIU/mL 07/03/2015 14:30 EDT [facility] Comment: Patient is presumed to not be immune to infection with HBV. Reference Range: Positive: >=12.0 mIU/mL Indeterminate: >=5.0 to <12.0 mIU/mL Negative: <5.0 mIU/mL Blood specimen (specimen) BLOOD SPECIMEN / Unknown 07/03/2015 10:28 EDT 07/03/2015 11:02 EDT Jarocho Kennedy MD PhD CHEMISTRY & BLO OD GAS ORDERABLES Performing Organization Address [facility] [[email or web address]] Co de Phone Number [facility] [address] [place] [address] * HEPATITIS A TOTAL ANTIBODY (07/03/2015 10:28 EDT) Pathologist [facility] Hep A Antibody Negative 07/03/2015 14:30 EDT [facility] Comment:Reference Range: Neg ative Blood specimen (specimen) BLOOD SPECIMEN / Unknown 07/03/2015 10:28 EDT 07/03/2015 11:02 EDT Jarocho Kennedy MD PhD CHEMISTRY & BLO OD GAS ORDERABLES Performing Organization Address [facility] de Phone Number [facility] [address] [place] [address] * HEPATITIS B SURFACE ANTIGEN (07/03/2015 10:28 EDT) Pathologist [facility] Hepatitis B Surface Ag Negative 07/03/2015 14:30 EDT [facility] Comment:Reference Range: Neg ative Blood specimen (specimen) BLOOD SPECIMEN / Unknown 07/03/2015 10:28 EDT 07/03/2015 11:02 EDT Jarocho Kennedy MD PhD CHEMISTRY & BLO OD GAS ORDERABLES Performing Organization Address [facility] de Phone Number [facility] [address] [place] [address] * (ABNORMAL) COMPREHENSIVE METABOLIC PANEL (CMP) (07/03/2015 10:28 EDT) Pathologist [facility] Potassium 4.3 3.5 - 5.0 mEq/L 07/03/2015 11:44 [facility] Sodium 137 136 - 145 mEq/L 07/03/2015 11:44 [facility] Chloride 102 96 - 110 mEq/L 07/03/2015 11:44 [facility] CO2 23(L) 24 - 32 mEq/L 07/03/2015 11:44 [facility] Total Alkaline Phosphatase 75 38 - 126 U/L 07/03/2015 11:44 [facility] Bilirubin, Total <0.5 <1.4 mg/dl 07/03/20 15 11:44 [facility] AST 37 15 - 46 U/L 07/03/2015 11:44 [facility] ALT 44 21 - 72 U/L 07/03/2015 11:44 [facility] Albumin 4.7 3.4 - 4.9 g/dl 07/03/2015 11:44 [facility] Total Protein 7.6 6.3 - 8.2 g/dl 07/03/2015 11:44 [facility] Creatinine 1.04 0.66 - 1.25 mg/dl 07/03/2015 11:44 [facility] GFR, Calculated 90 >60 ml/min/1.7 3m2 07/03/2015 11:44 [facility] Comment: eGFR calculated using CKD-EPI equation for non Americans. Multiply eGFR by 1.16 for Americans. BUN 9(L) 10 - 26 mg/dl 07/03/2015 11:44 [facility] Calcium 9.5 8.5 - 10.5 mg/dl 07/03/2015 11:44 [facility] Calculated Calcium 9.2 8.5 - 10.5 mg/dl 07/03/2015 11:44 [facility] Glucose, Serum 81 70 - 100 mg/dl 07/03/2015 11:44 [facility] Fasting? Unknown 07/03/2015 11:08 [facility] Blood specimen (specimen) BLOOD SPECIMEN / Unknown 07/03/2015 10:28 EDT 07/03/2015 11:02 EDT Jarocho Kennedy MD PhD CHEMISTRY & BLO OD GAS ORDERABLES Performing Organization Address City/[facility]/ZIP Co de Phone Number [facility] [address] [place] [address] * HEMAGRAM (07/03/2015 10:28 EDT) WBC 6.71 4.0 - 10.4 K/cmm 07/03/2015 11:18 EDT [facility] RBC 5.05 4.36 - 5.78 M/cmm 07/03/2015 11:18 EDT [facility] Hemoglobin 15.5 13.8 - 17.3 gm/dl 07/03/2015 11:18 EDT [facility] HCT 44.8 39.5 - 50.2 % 07/03/2015 11:18 T [facility] MCV 89 81 - 95 fl 07/03/2015 11:18 T [facility] MCH 30.6 27.6 - 33.0 pg 07/03/2015 11:18 T [facility] MCHC 34.5 32.8 - 36.4 gm/dl 07/03/2015 11:18 T [facility] RDW-CV 13.0 11.8 - 14.1 % 07/03/2015 11:18 T [facility] RDW-SD 40.3 36.5 - 45.9 fl 07/03/2015 11:18 EDT [facility] PLT 191 141 - 320 K/cmm 07/03/2015 11:18 T [facility] MPV 8.6 7.5 - 11.2 fl 07/03/2015 11:18 [facility] Blood specimen (specimen) BLOOD SPECIMEN / Unknown 07/03/2015 10:28 EDT 07/03/2015 11:02 EDT Jarocho Kennedy MD PhD HEMATOLOGY & PF 4 ORDERABLES [facility] [address] [place] [address] documented in this encounter Visit Diagnoses Diagnosis Chronic hepatitis C without hepatic coma (HCC-CMS)- Primary Chronic hepatitis C without mention of hepatic coma documented in this encounter Care Teams Lead Coater Relationship Specialty Start Date End Date Lukas Cifuentes MD PCP - General 07/02/15 03/03/16 documented as of this encounter
--- OUTSIDE RECORDS SUMMARY | 2024-09-16 15:27 | XMS_ITS | Encounter Summary ---
Author Organization [facility] Address [address] [place] [address] Care Team Providers Care Felt Cutting Machine Operator Name Role Phone Lukas Contreras MD Primary Care Provider [phone] Encounter Details Date Type Department Care Team (Late st Contact Info) Description 03/27/2018 Historical Results Only [facility] Radiology Results [address] [place], [place] [id number] Lukas Contreras MD [address] [facility] [address] [place] [address] Social History Tobacco Use Types [...] Procedure Name Priority Date/Time Associated Diagnosis Comments MR HEAD WO CONTRAST 03/27/2018 1 2:16 EDT MR ANGIO HEAD WO CONTRAST 03/27/2018 12:16 EDT US CAROTID-VERTEBRAL DUPLEX BILATERAL 03/27/2018 11:42 EDT documented in this encounter Results * MR HEAD ANGIO WO CONTRAST (03/27/2018 12:16 EDT) Anatomical Region Laterality Modality Head Other 03/27/2018 12:1 6 EDT Narrative 03/27/2018 12:19 EDT ? EXAM: MAGNETIC RESONANCE IMAGING/MRA HEAD EX. D/ (1120) ? CLINICAL INFORMATION: ? G45.9 TRANSIENT ISCHEMIC ATTACK ? INDICATION: R27.0 ATAXIA, H53.9 VISUAL CHANGES, TIA SX'S, HX OF PE. ? COMPARISON: None available.. ? TECHNIQUE: Noncontrast MRI scan of the brain was performed. Sagittal ? T1, axial DWI, gradient echo, T2 and T2 FLAIR sequences were ? obtained. [id number] MR angiography of the [place] was ? performed with 3-D reconstructions. ? MR BRAIN FINDINGS: ? No intra- or extra-axial mass, or fluid collection is present. There ? is no mass effect or midline shift. The basal cisterns are patent. ? The ventricles are unremarkable. Rees-white differentiation is ? preserved. No restricted diffusion is identified to suggest acute ? ischemia. The major flow voids are preserved. No abnormal ? susceptibility is present to suggest hemorrhage. ? The globes and orbits are normal. The paranasal sinuses are ? relatively clear, with the small mucous retention cyst noted in the ? right maxillary sinus. The mastoid air cells and middle ear cavities ? are clear. The osseous structures are unremarkable. The extracranial ? soft tissues are unremarkable. ? MRA HEAD FINDINGS: ? The intracranial vasculature is unremarkable without aneurysm or ? hemodynamically significant stenosis. ? The vertebral arteries are codominant. The posterior communicating ? arteries are hypoplastic or absent. ? IMPRESSION: ? 1. Normal MRA and MRI of the brain. ? REPORT SIGNED IN OTHER VENDOR SYSTEM 03/27/2018 ?Reported By: Tamir Sotelo MD ? CC: ? Transcribed Date/Time: 03/27/2018 (1219) ? Marketing Content Manager: ? Printed Date/Time: 05/10/2019 (1214) ? PAGE 1 ? Signed Report ? Procedure Note Tamir Sotelo MD - 09/26/2019 EXAM: MAGNETIC RESONANCE IMAGING/MRA HEAD EX. D/ (1120) CLINICAL INFORMATION: G45.9 TRANSIENT ISCHEMIC ATTACK INDICATION: R27.0 ATAXIA, H53.9 VISUAL CHANGES, TIA SX'S, HX OF PE. COMPARISON: None available.. TECHNIQUE: Noncontrast MRI scan of the brain was performed.Sagittal T1, axial DWI, gradient echo, T2 and T2 FLAIR sequences were obtained. [id number]-ze-[id number] MR angiography of the [place] was performed with 3-D reconstructions. MR BRAIN FINDINGS: No intra- or extra-axial mass, or fluid collection is present.There is no mass effect or midline shift. The basal cisterns are patent. The ventricles are unremarkable. Rees-white differentiation is preserved. No restricted diffusion is identified to suggest acute ischemia. The major flow voids are preserved. No abnormal susceptibility is present to suggest hemorrhage. The globes and orbits are normal. The paranasal sinuses are relatively clear, with the small mucous retention cyst noted in the right maxillary sinus. The mastoid air cells and middle earcavities are clear. The osseous structures are unremarkable. Theextracranial soft tissues are unremarkable. MRA HEAD FINDINGS: The intracranial vasculature is unremarkable without aneurysm or hemodynamically significant stenosis. The vertebral arteries are codominant. The posterior communicating arteries are hypoplastic or absent. IMPRESSION: 1. Normal MRA and MRI of the brain. REPORT SIGNED IN OTHER VENDOR SYSTEM 03/27/2018 Reported By: Tamir Sotelo MD CC: Transcribed Date/Time: 03/27/2018 (7978) Marketing Content Manager: Printed Date/Time: 05/10/2019 (5391) PAGE 1 Signed Report Lukas Contreras MD IMG MRI ORDERABLES * MR HEAD WO CONTRAST (03/27/2018 12:16 EDT) Anatomical Region Laterality Modality Head Other 03/27/2018 12:1 6 EDT Narrative 03/27/2018 12:19 EDT ? EXAM: MAGNETIC RESONANCE IMAGING/BRAIN WI EX. D/ (1120) ? CLINICAL INFORMATION: ? R27.0 ATAXIA, H53.9 VISUAL CHANGES ? TIA SX'S, HX OF PE ? INDICATION: R27.0 ATAXIA, H53.9 VISUAL CHANGES, TIA SX'S, HX OF PE. ? COMPARISON: None available.. ? TECHNIQUE: Noncontrast MRI scan of the brain was performed. Sagittal ? T1, axial DWI, gradient echo, T2 and T2 FLAIR sequences were ? obtained. [id number] MR angiography of the [place] was ? performed with 3-D reconstructions. ? MR BRAIN FINDINGS: ? No intra- or extra-axial mass, or fluid collection is present. There ? is no mass effect or midline shift. The basal cisterns are patent. ? The ventricles are unremarkable. Rees-white differentiation is ? preserved. No restricted diffusion is identified to suggest acute ? ischemia. The major flow voids are preserved. No abnormal ? susceptibility is present to suggest hemorrhage. ? The globes and orbits are normal. The paranasal sinuses are ? relatively clear, with the small mucous retention cyst noted in the ? right maxillary sinus. The mastoid air cells and middle ear cavities ? are clear. The osseous structures are unremarkable. The extracranial ? soft tissues are unremarkable. ? MRA HEAD FINDINGS: ? The intracranial vasculature is unremarkable without aneurysm or ? hemodynamically significant stenosis. ? The vertebral arteries are codominant. The posterior communicating ? arteries are hypoplastic or absent. ? IMPRESSION: ? 1. Normal MRA and MRI of the brain. ? REPORT SIGNED IN OTHER VENDOR SYSTEM 03/27/2018 ?Reported By: Tamir Sotelo MD ? CC: ? Transcribed Date/Time: 03/27/2018 (1219) ? Marketing Content Manager: ? Printed Date/Time: 05/10/2019 (1214) ? PAGE 1 ? Signed Report ? Procedure Note Tamir Sotelo MD - 09/26/2019 EXAM: MAGNETIC RESONANCE IMAGING/BRAIN WI EX. D/ (1120) CLINICAL INFORMATION: R27.0 ATAXIA, H53.9 VISUAL CHANGES TIA SX'S, HX OF PE INDICATION: R27.0 ATAXIA, H53.9 VISUAL CHANGES, TIA SX'S, HX OF PE. COMPARISON: None available.. TECHNIQUE: Noncontrast MRI scan of the brain was performed.Sagittal T1, axial DWI, gradient echo, T2 and T2 FLAIR sequences were obtained. [id number] MR angiography of the [place] was performed with 3-D reconstructions. MR BRAIN FINDINGS: No intra- or extra-axial mass, or fluid collection is present.There is no mass effect or midline shift. The basal cisterns are patent. The ventricles are unremarkable. Rees-white differentiation is preserved. No restricted diffusion is identified to suggest acute ischemia. The major flow voids are preserved. No abnormal susceptibility is present to suggest hemorrhage. The globes and orbits are normal. The paranasal sinuses are relatively clear, with the small mucous retention cyst noted in the right maxillary sinus. The mastoid air cells and middle earcavities are clear. The osseous structures are unremarkable. Theextracranial soft tissues are unremarkable. MRA HEAD FINDINGS: The intracranial vasculature is unremarkable without aneurysm or hemodynamically significant stenosis. The vertebral arteries are codominant. The posterior communicating arteries are hypoplastic or absent. IMPRESSION: 1. Normal MRA and MRI of the brain. REPORT SIGNED IN OTHER VENDOR SYSTEM 03/27/2018 Reported By: Tamir Sotelo MD CC: Transcribed Date/Time: 03/27/2018 (4455) Marketing Content Manager: Printed Date/Time: 05/10/2019 (6358) PAGE 1 Signed Report Lukas Contreras MD IMG MRI ORDERABLES * US CAROTID-VERTEBRAL DUPLEX BILATERAL (03/27/2018 11:42 EDT) Anatomical Region Laterality Modality Other 03/27/2018 11:4 2 EDT Narrative 03/29/2018 14:24 EDT ? EXAM: ULTRASOUND/DOPPLER CAROTID-BILATERA EX. D/ (0422) ? CLINICAL INFORMATION: ? G45.9 TIA, R27.0 ATXIA ? See attached report. ??Report also available in PACS. ? ENVIRONMENTAL PROPERTY ASSESSOR:viky ?Reported By: Bala Mantilla MD ? CC: ? Transcribed Date/Time: 03/29/2018 (6064) ? Marketing Content Manager: DEBBIE ? Printed Date/Time: 05/10/2019 (5547) ? PAGE 1 ? Signed Report ? Procedure Note Bala Mantilla MD - 09/26/2019 EXAM: ULTRASOUND/DOPPLER CAROTID-BILATERA EX. D/ (1142) CLINICAL INFORMATION: G45.9 TIA, R27.0 ATXIA See attached report. Report also available in PACS. ENVIRONMENTAL PROPERTY ASSESSOR:viky Reported By: Bala Mantilla MD CC: Transcribed Date/Time: 03/29/2018 (1639) Marketing Content Manager: DEBBIE Printed Date/Time: 05/10/2019 (2788) PAGE 1 Signed Report Lukas Contreras MD IMG VASCULAR [facility]IS [facility]Y documented in this encounter Visit Diagnoses Not on filedocumented in this encounter Care Teams Felt Cutting Machine Operator Relationship Specialty Start Date End Date Lukas Contreras MD [address] [facility] [place] [facility] [address] [place] [address] PCP - General 03/04/16 01/12/20 documented as of this encounter
--- OUTSIDE RECORDS SUMMARY | 2024-09-16 15:27 | XMS_ITS | Encounter Summary ---
Author Organization [facility] Address [address] [place] [address] Care Team Providers Care Negative Checker Name Role Phone Lukas Contreras MD Primary Care Provider [phone] Nicole Velasquez MD Primary Care Provider [phone] Zofia Cruz MD Primary Care Provider [phone] Encounter Details Date Type Department Care Team (Late st Contact Info) Description 10/12/2019 Lab Requisition [facility] Pathology & Laboratory Medicine - [facility] [address] [place] [address] Unknown, Provider, Social History Tobacco Use Types Packs/Day Years [...] Diagnosis Comments HCV RNA DETECT QUANT Routine 10/11/2019 13:35 EST documented in this encounter Results * (ABNORMAL) HCV RNA DETECT QUANT (10/11/2019 13:35 EST) HCV RNA Quantitative 631,253(H ) Undetected IU/mL 10/14/2019 14:00 EST [facility] Comment:Detected Blood VENOUS BLOOD / Unknown Non-Lab Collect / Unknown 10/11/2019 13:35 EST 10/13/2019 15:51 EST Narrative [facility] - 10/14/2019 14:00 EST The quantification range of this assay is 15 IU/mL to 100,000,000 IU/mL. ??Testing was performed on the [employer] Ampliprep/ANTONELLA TaqMan HCV v2.0 ([employer] Provider Unknown CHEMISTRY & BLOOD GA S ORDERABLES Performing Organization Address City/State/[place] Co de Phone Number [facility] [address] [place] [address] documented in this encounter Visit Diagnoses Not on filedocumented in this encounter Care Teams Negative Checker Relationship Specialty Start Date End Date Lukas Contreras MD [address] [place] [address] PCP - General 03/04/16 01/12/20 Nicole Velasquez MD [address] [address] PCP - General 01/13/20 06/27/23 Zofia Cruz MD [address] [place] [phone] PCP - General 06/28/23 documented as of this encounter
--- OUTSIDE RECORDS SUMMARY | 2024-09-16 15:27 | XMS_ITS | Encounter Summary ---
Author Organization [facility] Address [address] [place] [address] Care Team Providers Care Mud Jack Operator Name Role Phone Lukas Cifuentes MD Primary Care Provider [phone] Reason for Visit * Reason Onset Date Comments Other 12/02/2015 calling patient regarding labwork. Encounter Details Date Type Department Care Team (Late st Contact Info) Description 12/02/2015 Telephone [facility] Gastroenterology - [facility] [address] [place] [address] Emma Almazan, RN [address] [place] [address] Other (calling patient regarding labwork.) Social History Tobacco Use Types Packs/Day Years [...] Miscellaneous Notes * Telephone Encounter - Emma Almazan, RN - 12/02/2015 1042 EST Spoke to patient and patient says he did have labs drawn on 12/01/15 at [facility] in [place], [place]. Patientreports he has finished taking his medication. Nurse called [facility] and they only have on record an INRthat was drawn on 12/01/15. Nurse tried calling patient back to let him know he would need to get additional labs drawn and there was no answer. Will call patient back later. documented in this encounter Plan of Treatment Not on file documented as of this encounter Visit Diagnoses Not on filedocumented in this encounter Care Teams Mud Jack Operator Relationship Specialty Start Date End Date Lukas Cifuentes MD PCP - General 07/02/15 03/03/16 documented as of this encounter
--- OUTSIDE RECORDS SUMMARY | 2024-09-16 15:27 | XMS_ITS | Encounter Summary ---
Author Organization [facility] Address [address] [place] [address] Care Team Providers Care Information Delivery Analyst Name Role Phone Lukas Contreras MD Primary Care Provider [phone] Encounter Details Date Type Department Care Team (Latest Contact Info) Description 03/15/2018 22:35 EDT - 03/15/2018 23:59 EDT Hospital Encounter [facility] [address] [place] [address] Unknown, Provider, Discharge Disposition: Home or Self [...] Code Departure Means Destination Home or Self Nursing Home documented in this encounter Plan of Treatment Not on file documented as of this encounter Visit Diagnoses Not on filedocumented in this encounter Care Teams Information Delivery Analyst Relationship Specialty Start Date End Date Lukas Contreras MD [address] [place] [address] PCP - General 03/04/16 01/12/20 documented as of this encounter
--- OUTSIDE RECORDS SUMMARY | 2024-09-16 15:27 | XMS_ITS | Encounter Summary ---
Author Organization [facility] Address [address] [place] [address] Care Team Providers Care Ostomy Rn Name Role Phone Nicole Velasquez MD Primary Care Provider [phone] Reason for Referral * Medication Prior Authorization (Routine) - Authorized Specialty Diagnoses / Procedures [facility] Referred To Contact Pharmacy Diagnoses Chronic hepatitis C without hepatic coma (HCC-CMS) Jarocho Kennedy MD PhD [address] [place] [phone] [facility] [address] [place] [id number] Referral ID Status Reason Start Date Expiration Date Visits Requested Visits Authorized [id number] Authorized Medication Prior Authorization 0 1 1 Question Answer Medication to be Prior Authorized: Please request HCV-2 with prior sof/riba failure: sofosbuvir/velpatasvir for 12 weeks Comments The purpose of this consult request is to inform the scheduling staff that a medication needs to be prior-authorized before it is prescribed and/or administered. Reason for Visit * Reason Comments Procedure Chronic hepatitis c Encounter Details Date Type Department Care Team ([facility] st Contact Info) Description 08/26/2020 14:30 EDT Procedure visit [facility] Gastroenterology - [address] [address] Jarocho Kennedy MD PhD [address] [place], [place] [address], [place] [phone] Chronic hepatitis C without hepatic coma (HCC-CMS) (Primary Dx) Social History Tobacco Use Types Packs/Day Years Used Date Smoking Tobacco: Former Cigarettes 0.5 15 1 998 2012 Smokeless Tobacco: Current Comments:pt has lozenges [...] No 07/03/2015 documented as of this encounter Procedure Notes * Jarocho Kennedy MD - 08/26/2020 1430 EDTProcedure(s): VIBRATION CONTROLLED TRANSIENT ELASTOGRAPHY (VCTE) [facility] Hepatology Fibrosis Assessment Patient: Franky Solomon : 1975 Molder Foam Rubber: Jarocho Kennedy MD Referring Physician: Nicole Velasquez MD Disease diagnosis: he[atitis C Procedure: Vibration Controlled Transient Elastography (VCTE) or Fibroscan Barton Protocol: Patient's identity, procedure and site were verified, confirmatory pause performed. Discussed procedure including risks and potential complications. Questions answered. Patient verbalizes understanding and wishes to proceed with Fibroscan assessment. Patient was placed in the supine position with right arm in maximum abduction to allow optimal exposure of right lateral abdomen. Patient was briefly assessed. Testing was performed in the mid-axillary location. 50Hz Shear Wave pulses were applied and the resulting Shear Wave and Propagation Speed was detected with a 3.5MHz ultrasonic signal, using the Fibroscan probe. Skin to liver capsule distance and liver parenchyma were accessed during the entire examination with the Fibroscan probe. Patient was instructed to breathe normally and abstain from sudden movements during the procedure. At least ten Shear Waves were produced; individual measurements of each Shear Wave were calculated. Patient tolerated the procedure well with no complications. Fibroscan Results: Median kPa: 10.1 IQR kPa: 0.2 Fractional IQR: 2% (goal is <30%) Success rate: 100% (goal is >60%) Predicted fibrosis stage: F3 Interpretation: Franky Solomon is a 44 y.o. male with hepatitis C. Based on his Fibroscan results, patient likely has: Advanced hepatic fibrosis (F3-F4) Jarocho Kennedy MD Cc: Nicole Velasquez MD [address] [place], [place] [phone] documented in this encounter Plan of Treatment Scheduled Referrals Name Type Priority Associated Diagnoses Order Schedule AMB MEDICATION PRIOR AUTHORIZATION Outpatient Referral Routine Chronic hepatitis C without hepatic coma (HCC-CMS) Ordered: 08/26/2020 documented as of this encounter Visit Diagnoses Diagnosis Chronic hepatitis C without hepatic coma (HCC-CMS)- Primary Chronic hepatitis C without mention of hepatic coma documented in this encounter Care Teams Ostomy Rn Relationship Specialty Start Date End Date Nicole Velasquez MD [address] [address] PCP - General 01/13/20 06/27/23 documented as of this encounter
--- OUTSIDE RECORDS SUMMARY | 2024-09-16 15:27 | XMS_ITS | Encounter Summary ---
Author Organization [facility] Address [address] [place] [address] Care Team Providers Care Vacuum Cleaner Repair Person Name Role Phone Lukas Contreras MD Primary Care Provider [phone] Nicole Velasquez MD Primary Care Provider [phone] Zofia Cruz MD Primary Care Provider [phone] Encounter Details Date Type Department Care Team (Late st Contact Info) Description 04/23/2018 Historical Results Only [facility] [address] [place] [phone] Unknown, Provider, Social History Tobacco Use Types [...] Procedure Name Priority Date/Time Associated Diagnosis Comments HISTORICAL HOLTER/PRACTICE OR STUDENT TEACHER 04/23/2018 13:51 EDT EXERCISE ECHOCARDIOGRAM STRESS TEST 04/23/2018 13:00 EDT documented in this encounter Results * HISTORICAL HOLTER/PRACTICE OR STUDENT TEACHER (04/23/2018 13:51 EDT) Anatomical Region Laterality Modality Other 04/23/2018 13:5 1 EDT Narrative 04/23/2018 13:51 EDT ? [facility] ?[facility] ? HOLTER SUMMARY REPORT NAME: CLARIOBED ?TELEPHONE: [phone] ? PATIENT LOCATION: ? DATE OF : ??75 ?SEX: M ? REASON FOR VISIT: I34.0, MODERATE MITRAL REGURGITATION ? [facility] ? Test Date: ?2018-04-23 13:51:00 Pat Name: ? OBED MONTAGUE ? Department: ?Room: ? Gender: ? M ?Oil Boiler: ?? ISH Amador : ?1975 ? Requested By: Order Number: ?Reading MD: ?? Morris Almonte MD ? Interpretive Statements Baseline rhythm sinus. Rare single PAC. ??No SVT or atrial fibrillation. Occasional single PVC. ??987 total, 1.1% total beat. Nocturnal heart rates as low as 35?? ? 40 bpm, sinus bradycardia. Symptoms: Shortness of breath noted once during sinus rhythm 82 bpm, no ST-T wave changes. Discomfort noted once during sinus rhythm 54 bpm. Average heart rate 64 bpm, range 37?? ? 154 bpm. Electronically Signed On 04-28-2018 11:50:23 EDT by Morris Almonte MD Procedure Note Morris Almonte G - 09/08/2019 [facility] HOLTER SUMMARY REPORT NAME: OBED MONTAGUE TELEPHONE:[phone] PATIENT LOCATION: MEDICAL RECORD#: [id number] DATE OF : 75 SEX: M REASON FOR VISIT: I34.0, MODERATE MITRAL REGURGITATION [facility] Test Date: 2018-04-23 13:51:00 Pat Name: OBED MONTAGUE Department: Room: Gender: M Oil Boiler: ISH Amador : 1975 Requested By: Order Number: Reading MD: Morris Almonte MD Interpretive Statements Baseline rhythm sinus. Rare single PAC. No SVT or atrial fibrillation. Occasional single PVC. 987 total, 1.1% total beat. Nocturnal heart rates as low as 35?? ? 40 bpm, sinus bradycardia. Symptoms: Shortness of breath noted once during sinus rhythm 82 bpm, no ST-T wave changes. Discomfort noted once during sinus rhythm 54 bpm. Average heart rate 64 bpm, range 37?? ? 154 bpm. Electronically Signed On 04-28-2018 11:50:23 EDT by Morris Almonte MD Provider Unknown MD CARDIAC SERVICES ORD ERABLES * EXERCISE ECHOCARDIOGRAM STRESS TEST (04/23/2018 13:00 EDT) Anatomical Region Laterality Modality Ultrasound 04/23/2018 13:0 0 EDT Narrative 04/23/2018 13:00 EDT ? [facility] ?[facility] ?[address] [place] [id number] ? [id number] ?C A R D I A C ?S T R E S S ?T E S T ?R E P O R T NAME: OBED MONTAGUE ? : 75 TELEPHONE: [phone] ? MR#: [id number] ? *[facility]* *[facility]* [address] [place] [address] Date of study: 04/23/2018 Stress Echocardiography Alyssa protocol 2D, limited spectral Doppler, and color Doppler *STUDY CONCLUSIONS* Impressions: ??Normal study. Summary: 1. Procedure narrative: Treadmill exercise testing was performed using ?? the Alyssa protocol. The patient exercised for 9 min, to protocol ?? stage 3, to a maximal work rate of 10mets. 2. Stress: Maximal heart rate during stress was 170bpm (96% of maximal ?? predicted heart rate). The maximal predicted heart rate was ?? 178bpm.The target heart rate was achieved. The heart rate response to ?? stress was normal. 3. Staged echo: There was no echocardiographic evidence for ?? stress-induced ischemia. 4. Baseline: LV size was normal. LV global systolic function was normal. ?? Normal wall motion; no LV regional wall motion abnormalities. 5. Peak stress: LV size was reduced appropriately. LV global systolic ?? function was appropriately augmented from baseline. Normal wall ?? motion; no LV regional wall motion abnormalities. 6. Stress ECG conclusions: The stress ECG was negative for ischemia. *PATIENT PRESENTATION* Height: ? 182.9cm ((72in) ) S/D Pressure: Weight: ? 81.8kg ((180lb) ) BSA: ?2.04m S 2 ORDERING ??HaleighNicole ramirez Darin *PROCEDURE DATA* Procedure information: ??Anson Zamorano MD supervised and was readily available during the procedure. This study was interpreted by The ? [facility] ?[facility] ?[facility] [address] [place], [place] [address] ? [id number] ?C A R D I A C ?S T R E S S ?T E S T ?R E P O R T NAME: OBED MONTAGUE ? : 75 TELEPHONE: [phone] ? MR#: [id number] ? [facility]. Pertinent images and digital data are archived for permanent storage and are available for subsequent review. ??Study status: Routine. Stress echocardiography. ??2D, limited spectral Doppler, and color Doppler. ??Consent: ??The risks, benefits, and alternatives to the procedure were explained to the patient and consent was verbally obtained. ??Barriers to education: ??No barriers to education identified. Initial setup. The patient was brought to the laboratory. A baseline ECG was recorded. Surface ECG leads and manual cuff blood pressure measurements were monitored. Treadmill exercise testing was performed using the Alyssa protocol. The patient exercised for 9 min, to protocol stage 3, to a maximal work rate of 10mets. A Transthoracic stress echocardiogram was performed. Images were captured at baseline and peak exercise. Images were obtained using a [facility] IE33 1 cardiac ultrasound machine. Image quality was adequate. ??Study completion: ??The patient tolerated the procedure well. There were no complications. History: ?PMH: ??STRESS ECHO TODAY TO EVALUATE MV REGURG AND LV FUNCTION WITH INCREASED HR. NO CHEST PAIN. SOME SOB AND PRESYNCOPE NOTED AT TIMES. NO PREVIOUS CARDIAC HISTORY PAST HISTORY OF FACTOR V LEIDEN, MULTIPLE PULM. EMBOLI, TIA'S. ??Risk factors: ??Family history of coronary artery disease. MEDS: WARFARIN, CLONAZEPAM, METHADONE. *CARDIAC ANATOMY* Baseline ECG: ??SINUSBRADY- 55 BPM. Normal. Stress protocol: + +---+ +--------+ !Stage ?!HR !BP (mmHg) ?!Symptoms! + +---+ +--------+ !Baseline supine ?!55 !129/96 (107) !None ?! + +---+ +--------+ !Baseline standing ?!60 !130/106 (114)!--------! + +---+ +--------+ !Stage 1; 1.7mph, 10degrees; 3 min!95 !151/98 (116) !--------! + +---+ +--------+ !Stage 2; 2.5mph, 12degrees; 3 min!130!144/87 (106) !--------! + +---+ +--------+ !Stage 3; 3.4mph, 14degrees; 3 min!164! !--------! + +---+ +--------+ !Peak stress ?!170! !--------! + +---+ +--------+ !Recovery; 1 min ?!113!140/86 (104) !--------! + +---+ +--------+ !Recovery; 3 min ?!71 ! !--------! + +---+ +--------+ !Recovery; 6 min ?!83 !144/85 (105) !--------! ? [facility] ?[facility] ?[address] [place], [place] [address] ? [id number] ?C A R D I A C ?S T R E S S ?T E S T ?R E P O R T NAME: OBED MONTAGUE ? : 75 TELEPHONE: [phone] ? MR#: [id number] ? + +---+ +--------+ * Stress results: ?? Maximal heart rate during stress was 170bpm (96% of maximal predicted heart rate). The maximal predicted heart rate was 178bpm.The target heart rate was achieved. The heart rate response to stress was normal. There was a normal resting blood pressure with an appropriate response to stress. The rate-pressure product for the peak heart rate and blood pressure was 10183id Hg/min. ??The patient experienced no chest pain during stress. Stress ECG: ??AVERAGE FUNCTIONAL CAPACITY GOOD EXERCISE AYLEEN- 10 METS ( 9 MINUTES IN ALYSSA PROTOCOL) MAX HR- 170 BPM NORMAL BP RESPONSE NO CHEST PAIN OCC PVC'S, BIGEMINY, ONE COUPLET NO ISCHEMIC ECG CHANGES. ??Occasional ventricular ectopy. ??The stress ECG was negative for ischemia. Baseline: - LV size was normal. - LV global systolic function was normal. - Normal wall motion; no LV regional wall motion abnormalities. Wall motion score: 1.00. Peak stress: - LV size was reduced appropriately. - LV global systolic function was appropriately augmented from baseline. - Normal wall motion; no LV regional wall motion abnormalities. Wall motion score: 1.00. Stress echo results: ? There was no echocardiographic evidence for stress-induced ischemia. I have personally reviewed the images and have reviewed and edited the reported findings. Electronically signed by Anson Zamorano 04/25/2018 15:41 Procedure Note Anson Zamorano MD - 09/08/2019 [facility] [address] [place] [id number] C A R D I A C S T R E S S T E S T R E P O R T NAME: OBED MONTAGUEMAUDE: 75 TELEPHONE: [phone] MR#: [id number] [facility]#:[id number] *[facility]* *[facility]* [address] [place] [address] Date of study: 04/23/2018 Stress Echocardiography Alyssa protocol 2D, limited spectral Doppler, and color Doppler *STUDY CONCLUSIONS* Impressions: Normal study. Summary: 1. Procedure narrative: Treadmill exercise testing was performed using the Alyssa protocol. The patient exercised for 9 min, to protocol stage 3, to a maximal work rate of 10mets. 2. Stress: Maximal heart rate during stress was 170bpm (96% of maximal predicted heart rate). The maximal predicted heart rate was 178bpm.The target heart rate was achieved. The heart rate response to stress was normal. 3. Staged echo: There was no echocardiographic evidence for stress-induced ischemia. 4. Baseline: LV size was normal. LV global systolic function was normal. Normal wall motion; no LV regional wall motion abnormalities. 5. Peak stress: LV size was reduced appropriately. LV global systolic function was appropriately augmented from baseline. Normal wall motion; no LV regional wall motion abnormalities. 6. Stress ECG conclusions: The stress ECG was negative for ischemia. *PATIENT PRESENTATION* Height: 182.9cm ((72in) ) S/D Pressure: Weight: 81.8kg ((180lb) ) BSA: 2.04m S 2 Nicole Renae Aprn *PROCEDURE DATA* Procedure information: Anson Zamorano MD supervised and was readily available during the procedure. This study was interpreted by The [facility] [address] [place], [place] [address] [id number] C A R D I A C S T R E S S T E S T R E P O R T NAME: OBED MONTAGUEMAUDE: 75 TELEPHONE: [phone] MR#: [id number] [facility]. Pertinent images and digital data are archived for permanent storage and are available for subsequent review. Study status: Routine. Stress echocardiography. 2D, limited spectral Doppler, and color Doppler. Consent: The risks, benefits, and alternatives to the procedure were explained to the patient and consent was verbally obtained. Barriers to education: No barriers to education identified. Initial setup. The patient was brought to the laboratory. A baseline ECG was recorded. Surface ECG leads and manual cuff blood pressure measurements were monitored. Treadmill exercise testing was performed using the Alyssa protocol. The patient exercised for 9 min, to protocol stage 3, to a maximal work rate of 10mets. A Transthoracic stress echocardiogram was performed. Images were captured at baseline and peak exercise. Images were obtained using a [facility] IE33 1 cardiac ultrasound machine. Image quality was adequate. Study completion: The patient tolerated the procedure well. There were no complications. History: PMH: STRESS ECHO TODAY TO EVALUATE MV REGURG AND LV FUNCTION WITH INCREASED HR. NO CHEST PAIN. SOME SOB AND PRESYNCOPE NOTED AT TIMES. NO PREVIOUS CARDIAC HISTORY PAST HISTORY OF FACTOR V LEIDEN, MULTIPLE PULM. EMBOLI, TIA'S. Risk factors: Family history of coronary artery disease. MEDS: WARFARIN, CLONAZEPAM, METHADONE. *CARDIAC ANATOMY* Baseline ECG: SINUSBRADY- 55 BPM. Normal. Stress protocol: + +---+ +--------+ !Stage !HR !BP (mmHg) !Symptoms! + +---+ +--------+ !Baseline supine !55 !129/96 (107) !None ! + +---+ +--------+ !Baseline standing !60 !130/106 (114)!--------! + +---+ +--------+ !Stage 1; 1.7mph, 10degrees; 3 min!95 !151/98 (116) !--------! + +---+ +--------+ !Stage 2; 2.5mph, 12degrees; 3 min!130!144/87 (106) !--------! + +---+ +--------+ !Stage 3; 3.4mph, 14degrees; 3 min!164! !--------! + +---+ +--------+ !Peak stress !170! !--------! + +---+ +--------+ !Recovery; 1 min !113!140/86 (104) !--------! + +---+ +--------+ !Recovery; 3 min !71 ! !--------! + +---+ +--------+ !Recovery; 6 min !83 !144/85 (105) !--------! [facility] [address] [place] [id number] C A R D I A C S T R E S S T E S T R E P O R T NAME: OBED MONTAGUEMAUDE: 75 TELEPHONE: [phone] MR#: [id number] [id number] + +---+ +--------+ * Stress results: Maximal heart rate during stress was 170bpm (96% of maximal predicted heart rate). The maximal predicted heart rate was 178bpm.The target heart rate was achieved. The heart rate response to stress was normal. There was a normal resting blood pressure with an appropriate response to stress. The rate-pressure product for the peak heart rate and blood pressure was 70400zp Hg/min. The patient experienced no chest pain during stress. Stress ECG: AVERAGE FUNCTIONAL CAPACITY GOOD EXERCISE AYLEEN- 10 METS ( 9 MINUTES IN ALYSSA PROTOCOL) MAX HR- 170 BPM NORMAL BP RESPONSE NO CHEST PAIN OCC PVC'S, BIGEMINY, ONE COUPLET NO ISCHEMIC ECG CHANGES. Occasional ventricular ectopy. The stress ECG was negative for ischemia. Baseline: - LV size was normal. - LV global systolic function was normal. - Normal wall motion; no LV regional wall motion abnormalities. Wall motion score: 1.00. Peak stress: - LV size was reduced appropriately. - LV global systolic function was appropriately augmented from baseline. - Normal wall motion; no LV regional wall motion abnormalities. Wall motion score: 1.00. Stress echo results: There was no echocardiographic evidence for stress-induced ischemia. I have personally reviewed the images and have reviewed and edited the reported findings. Electronically signed by Anson Zamorano 04/25/2018 15:41 Provider Unknown CARDIAC ECHO ORDERAB LES documented in this encounter Visit Diagnoses Not on filedocumented in this encounter Care Teams Vacuum Cleaner Repair Person Relationship Specialty Start Date End Date Lukas Contreras MD [address] [place] [id number] PCP - General 03/04/16 01/12/20 Nicole Velasquez MD [address] [address] PCP - General 01/13/20 06/27/23 Zofia Cruz MD [address] [place] [phone] PCP - General 06/28/23 documented as of this encounter
--- OUTSIDE RECORDS SUMMARY | 2024-09-16 15:27 | XMS_ITS | Encounter Summary ---
Author Organization [facility] Address [address] [place] [address] Care Team Providers Care Knit Goods Cutter Hand Name Role Phone Lukas Cifuentes MD Primary Care Provider [phone] Reason for Visit * Reason Comments Medication Education Encounter Details Date Type Department Care Team (Latest Contact Info) Description 09/08/2015 14:[address] [facility] Gastroenterology - [place] [address] [place] [address] Unknown, Provider, Assoc, [employer], MBBS Hep C w/o coma, chronic ([facility]) (Primary Dx) Social History Tobacco Use Types [...] as of this encounter Progress Notes * Oleg Tipton, [facility] - 09/08/[address] [facility] Gastroenterology/Hepatology Clinic Medication Therapy Initiation Visit Franky Solomon was seen in clinic today for initiation of sofosbuvir and ribavirin for treatment of HCV (12 week regimen). Patient plans to start treatment on September 09. I completed a complete review of the patient's medical record, including medications, allergies andimmunizations. He reports he has started his Hepatitis A and Hepatitis B vaccine series; received influenza vaccine this year from PCP. Dosing, Administration and Storage: We discussed the dosing and administration of Sovaldi and Ribavirin. Ribavirin should be taken with food to minimize GI side effects. Medication should be kept at room temperature, and protected from light. If the patient travels, these medications should be keptwith him (i.e. not placed in checked luggage). Medication Adherence: I stressed the importance of medication adherence in maximizing the benefits of the medication for this patient. Adverse Effects: Sofosbuvir: We reviewed adverse effects including but not limited to: headache and fatigue. We discussed keeping well hydrated and using ibuprofen PRN headaches. Ribavirin: We discussed adverse effects of ribavirin, including but not limited to: fatigue, nausea, headache, insomnia, dry skin, anemia, neutropenia, and leukopenia. Reviewed signs of anemia, including fatigue, SOB, pale skin. Advised patient to call the clinic in the event of development of these symptoms. Ribavirin Black Box Warning: Significant teratogenic and/or embryocidal effects have been observed in all animal studies. Use is contraindicated in women or male partners of women. Avoid in female patients and female partners of male patients during therapy by using two effective forms of contraception; continue contraceptive measures for at least 6 months after completion of therapy. Drug-Drug Interactions: Potentially significant drug interactions may exist with this treatment. The patient was counseled to contact the clinic if any new medications are started while on HCV treatment so they can be evaluated. Laboratory Monitoring: I reviewed the necessary laboratory monitoring while the patient is on therapy. Franky was provided with laboratory orders for week 2 of treatment. Future lab slips will be sent to the patient. he plans to have labs drawn at [facility]. The patient will be contacted with results. Additional Recommendations: complete Hepatitis vaccine series Franky was provided with medication guide for both sofosbuvir and ribavirin. Barriers to education identified: None. Outcomes: verbalized understanding All questions the patient had were answered to the best of my ability and the patient will follow-up with the office if they have additional questions or concerns. I was supervised by Dr. Kennedy who was present and immediately available in the office suite. Oleg Tipton, Pharm.D., [facility] Pharmacist Clinician - Gastroenterology/Hepatology documented in this encounter Plan of Treatment Not on file documented as of this encounter Visit Diagnoses Diagnosis Hep C w/o coma, chronic (HCC-CMS)- Primary Chronic hepatitis C without mention of hepatic coma documented in this encounter Discontinued Medications Medication Sig Discontinue Reason Start Date End Da te enoxaparin (LOVENOX) 60 mg/0.6 mL injectionIndications:Ant iphospholipid antibody positive,Other pulmonary embolism and infarction Inject 60 mg into the skin daily. 01/21/2013 09/08/2015 documented as of this encounter Care Teams Knit Goods Cutter Hand Relationship Specialty Start Date End Date Lukas Cifuentes MD PCP - General 07/02/15 03/03/16 documented as of this encounter
--- OUTSIDE RECORDS SUMMARY | 2024-09-16 15:27 | XMS_ITS | Encounter Summary ---
Author Organization [facility] Address [address] [place] [address] Care Team Providers Care Manager Intelligence Name Role Phone Nicole Velasquez MD Primary Care Provider [phone] Encounter Details Date Type Department Care Team (Late st Contact Info) Description 10/14/2020 Specialty Pharmacy [facility] [place] [address] [place], [place] [phone] Felicitas Rodriguez, [facility] [address] [place], [place] [phone] Social History Tobacco Use Types Packs/Day Years [...] encounter Progress Notes * Felicitas Rodriguez - 10/14/2020 1033 EST [facility] Medication Therapy Follow Up: Franky Solomon is a 45 y.o. male being treated with Epclusa x12 weeks for hepatitis C. The patient started treatment on 09/02/20 and will continue this therapy until 11/24/20. MD:??Brent Regimen:??Epclusa x12 weeks?? Genotype:??2 Treatment: Experienced: Sovosbuvir + ribavirin?? Cirrhosis: Y Fibrosis Stage:??F3-F4 (fibroscan 08/26/20)?? Social Hx:??history of illicit drug use?? Specialty Pharmacy:??[facility]? Start date:??09/02/20?Lab: Lives in [facility] - PCP or [facility] Week Date SCr Hct/Hgb AST ALT HCV RNA Quant Pretreatment 01/13/20 0.78 N/A 98 215 2,116,869 4 ??09/30/20 ? 12 post-tx ??02/23/21 ? I completed a complete review of the patient's current medical record, including medications, allergies and immunizations. There is 1 pertinent drug-drug interaction at this time: warfarin, INR monitoring being completed every 2 weeks by patient's PCP. Per patient, last INR = 2.3, next check is this Monday. Adherence: Patient has not missed any doses since last follow-up, as determined via patient self-report. Side effects/toxicities: Mild fatigue, which does not impact patient's ADLs. Assessment: Patient continues Epclusa, currently on week 712. He will continue to complete 12 weeks of treatment. Discussed that he is due for labs - patient has appointment with PCP this Monday. Will fax lab orders to PCP's office and [facility] lab (patient unsure if they can be drawn at PCP's office). If unable to collect, discussed he will need to go to lab at [facility]. Updated patient's phone # - we had an old number listed. Confirmed best number to call him at is [phone]. Follow-up planned: - Clinic appointment: after SVR12 - Phone call: with lab results / end of treatment - Laboratory monitoring: on treatment labs due now, faxed to PCP's office and Randi Rodriguez PharmD Pharmacist Clinician - Gastroenterology/Hepatology 10/19/2020 documented in this encounter Plan of Treatment Not on file documented as of this encounter Visit Diagnoses Not on filedocumented in this encounter Care Teams Manager Intelligence Relationship Specialty Start Date End Date Nicole Velasquez MD [address] [address] PCP - General 01/13/20 06/27/23 documented as of this encounter
--- OUTSIDE RECORDS SUMMARY | 2024-09-16 15:27 | XMS_ITS | Encounter Summary ---
Author Organization [facility] Address [address] [place] [address] Care Team Providers Care Chief Estimator Name Role Phone Lukas Cifuentes MD Primary Care Provider [phone] Reason for Visit * Reason Onset Date Comments Other 11/06/2015 Encounter Details Date Type Department Care Team (Late st Contact Info) Description 11/06/2015 Telephone [facility] Gastroenterology - [facility] [address], [place] [phone] Sierra Patterson, RN Other Social History Tobacco [...] Telephone Encounter - Sierra Patterson RN - 11/06/2015 1610 EST The patient was called to remind him to have scheduled labwork done. He states he can,t remember when he had them done, despite lab slips & appointment card sent after last conversation. [facility] lab & [facility] labs sites were both called, INR drawn from an ER visit on 10/26/[address] [facility]. The patient was called back not available to speak with the nurse', asked patient to return call. documented in this encounter Plan of Treatment Not on file documented as of this encounter Visit Diagnoses Not on filedocumented in this encounter Care Teams Chief Estimator Relationship Specialty Start Date End Date Lukas Cifuentes MD PCP - General 07/02/15 03/03/16 documented as of this encounter
--- OUTSIDE RECORDS SUMMARY | 2024-09-16 15:27 | XMS_ITS | Encounter Summary ---
Author Organization [facility] Address [address] [place] [address] Care Team Providers Care Construction Contractor Name Role Phone Lukas Contreras MD Primary Care Provider [phone] Reason for Visit * Reason Onset Date Comments Coordination Of Care 04/01/2019 Medication Management 04/01/2019 Encounter Details Date Type Department Care Team (Late st Contact Info) Description 04/01/2019 Telephone [facility] Cancer Center Hematology & Oncology - [address] [address] Dannielle Lucio MD [address] [place] [address] [address] 2 [place] [phone] Coordination Of Care; Medication Management Social History Tobacco Use Types Packs/Day Years [...] encounter Miscellaneous Notes * Telephone Encounter - Divine Odom, RN - 04/01/2019 1405 EDT Spoke with provider. Pt will hold 5 days prior to dental extractions (23) and bridge back with lovenox 40mg SC daily. * Telephone Encounter - Axel Robin - 04/01/[address] Velasquez called state patient is having sental surgery, would like to know if they should be bridged or hold his warfarin. State they are aware patient has not been seen in a few years. Please advise documented in this encounter Plan of Treatment Not on file documented as of this encounter Visit Diagnoses Not on filedocumented in this encounter Care Teams Construction Contractor Relationship Specialty Start Date End Date Lukas Contreras MD [address] [place] [address] PCP - General 03/04/16 01/12/20 documented as of this encounter
--- OUTSIDE RECORDS SUMMARY | 2024-09-16 15:27 | XMS_ITS | Encounter Summary ---
Author Organization [facility] Address [address] [place] [address] Care Team Providers Care Motor Home Electrical Foreman Name Role Phone Lukas Cifuentes MD Primary Care Provider Encounter Details Date Type Department Care Team (Late st Contact Info) Description 07/03/2015 Results Only [facility] Gastroenterology - [address] [phone] Jarocho Knenedy MD PhD [address] [place] [address], [address] [place] [address] Social History Tobacco Use Types Packs/Day Years [...] Name Priority Date/Time Associated Diagnosis Comments HCV GENOTYPE, SERUM Routine 07/03/2015 1 0:28 EDT documented in this encounter Results * HCV GENOTYPE, SERUM (07/03/2015 10:28 EDT) Hepatitis C Genotype 2 Undetected 07/08/2015 13:02 EDT [facility] Comment: (Note) ADDITIONAL INFORMATION This test was performed using the Palmer RealTime HCV Genotype II assay ([employer] [place], [place]). Performed by: [facility]: [facility], [address] [place], [place] [address], Lab Dir: Jomar Munoz III, MD BLOOD SPECIMEN / Unknown 07/03/2015 10:28 EDT 07/03/2015 11:02 EDT Jarocho Kennedy MD PhD CHEMISTRY & BLO OD GAS ORDERABLES [facility] [address] [place] [address] documented in this encounter Visit Diagnoses Not on filedocumented in this encounter Care Teams Motor Home Electrical Foreman Relationship Specialty Start Date End Date Lukas Cifuentes MD PCP - General 07/02/15 03/03/16 documented as of this encounter
--- OUTSIDE RECORDS SUMMARY | 2024-09-16 15:27 | XMS_ITS | Encounter Summary ---
Author Organization [facility] Address [address] [place] [address] Care Team Providers Care Workers' Compensation Hearings Officer Name Role Phone Lukas Contreras MD Primary Care Provider [phone] Nicole Velasquez MD Primary Care Provider [phone] Zofia Cruz MD Primary Care Provider [phone] Encounter Details Date Type Department Care Team (Late st Contact Info) Description 10/12/[address] [facility] Pathology & Laboratory Medicine - [facility] [address] [place] [address] Unknown, Provider, Social History Tobacco Use Types [...] Procedure Name Priority Date/Time Associated Diagnosis Comments IMMUNOTYPING, SERUM Today 10/11/2019 1 3:35 EST SPEP, INCLUDES QUANTITATION OF MONOCLONAL SPIKE Routine 10/11/2019 13:35 EST documented in this encounter Results * IMMUNOTYPING, SERUM (10/11/2019 13:35 EST) Pathologist [facility] Immunotyping, Serum Current Interpretation : Negative for monoclonal immunoglobulin s. Reviewed by: Romeo Mahoney MD 10/14/2019 15:34 10/14/2019 16:16 [facility] Blood VENOUS BLOOD / Unknown Non-Lab Collect / Unknown 10/11/2019 13:35 EST 10/13/2019 15:51 EST Provider Unknown CHEMISTRY & BLOOD GA S ORDERABLES [facility] [address] [place] [address] * (ABNORMAL) SPEP, INCLUDES QUANTITATION OF MONOCLONAL SPIKE (10/11/2019 13:35 EST) Pathologist [facility] Total Protein 8.2 6.3 - 8.2 g/dL 10/14/2019 16:16 [facility] Albumin % 59.7 55.8 - 66.1 % 10/14/2019 16:16 [facility] Alpha-1 % 3.6 2.9 - 4.9 % 10/14/2019 16:16 [facility] Alpha-2 % 6.9(L) 7.1 - 11.8 % 10/14/2019 16:16 [facility] Beta % 9.1 8.4 - 13.1 % 10/14/2019 16:16 [facility] Gamma % 20.7(H) 11.1 - 18.8 % 10/14/2019 16:16 [facility] SPEP Comment Suspicious pattern seen on protein electrophoresis. Immunotyping added by reflex. 10/14/2019 16:16 [facility] Comment:See scanned/suppleme ntary report. Blood VENOUS BLOOD / Unknown Non-Lab Collect / Unknown 10/11/2019 13:35 EST 10/13/2019 15:51 EST Provider Unknown CHEMISTRY & BLOOD GA S ORDERABLES [facility] [address] [place] [address] documented in this encounter Visit Diagnoses Not on filedocumented in this encounter Care Teams Workers' Compensation Hearings Officer Relationship Specialty Start Date End Date Lukas Contreras MD [address] [address] PCP - General 03/04/16 01/12/20 Nicole Velasquez MD [address] [address] PCP - General 01/13/20 06/27/23 Zofia Cruz MD [address] [place] [phone] PCP - General 06/28/23 documented as of this encounter
--- OUTSIDE RECORDS SUMMARY | 2024-09-16 15:27 | XMS_ITS | Encounter Summary ---
Author Organization [facility] Address [address] [place] [address] Care Team Providers Care Chair Upholsterer Name Role Phone Nicole Velasquez MD Primary Care Provider [phone] Reason for Visit * Reason Onset Date Comments Appointment Related 03/12/2020 Encounter Details Date Type Department Care Team (Late st Contact Info) Description 03/12/2020 Telephone [facility] Cardiology - [address] [place], [place] [phone] Shakir Ortega MD [address] [place] [address] [address] [place] [address] Appointment Related Social History Tobacco [...] encounter Miscellaneous Notes * Telephone Encounter - Cecy Marlow - 03/12/2020 1412 EDT Call to home number - rings, no answer, no machine. Call to mobile also listed as mother Fabiola (EC). LVM to CB about changing upcoming Ortega NPV 03/27/20 to TELEVIDEO appt. (also have opening 03/13/20 if Pt calls back today) documented in this encounter Plan of Treatment Not on file documented as of this encounter Visit Diagnoses Not on filedocumented in this encounter Care Teams Chair Upholsterer Relationship Specialty Start Date End Date Nicole Velasquez MD [address] [address] PCP - General 01/13/20 06/27/23 documented as of this encounter
--- OUTSIDE RECORDS SUMMARY | 2024-09-16 15:27 | XMS_ITS | Encounter Summary ---
Author Organization [facility] Address [address] [place] [address] Care Team Providers Care Motorboat Mechanic Inboard/Outboard Name Role Phone Lukas Contreras MD Primary Care Provider [phone] Encounter Details Date Type Department Care Team (Late st Contact Info) Description 06/01/[address] [address] Lukas Contreras MD [address] [address] Social History Tobacco Use Types Packs/Day [...] on filedocumented in this encounter Care Teams Motorboat Mechanic Inboard/Outboard Relationship Specialty Start Date End Date Lukas Contreras MD [address] [address] PCP - General 03/04/16 01/12/20 documented as of this encounter
--- OUTSIDE RECORDS SUMMARY | 2024-09-16 15:27 | XMS_ITS | Encounter Summary ---
Author Organization [facility] Address [address] [place] [address] Care Team Providers Care Advertisement Compositor Name Role Phone Lukas Contreras MD Primary Care Provider [phone] Encounter Details Date Type Department Care Team (Late st Contact Info) Description 03/15/[address] [facility] Radiology Results [address] [place], [place] [address] Lukas Contreras MD [address] [facility] [address] [place] [address] Social History Tobacco Use Types [...] Procedure Name Priority Date/Time Associated Diagnosis Comments CT ANGIO CHEST PE PROTOCOL 03/15/2018 13:23 EDT documented in this encounter Results * CT ANGIO CHEST PE PROTOCOL (03/15/2018 13:23 EDT) Anatomical Region Laterality Modality Chest Other 03/15/2018 13:2 3 EDT Narrative 03/15/2018 13:26 EDT ? EXAM: CAT SCAN/CTA CHEST PE PROTOCOL ?EX. D/ (1303) ? CLINICAL INFORMATION: ? R06.02 SHORTNESS OF BREATH, HX OF PULMONARY ? EMBOLUS ? Exam: CTA chest. ? Indication: R06.02 SHORTNESS OF BREATH, HX OF PULMONARY, EMBOLUS ? SHORTNESS OF BREATH ? Technique: Axial enhanced imaging of the chest was performed. CT 3-D ? shaded surface rendering was obtained on a separate Vitrea 2 ? workstation. I actively participated in the monitoring of the 3-D ? reconstruction process for this exam. ? Comparison:None. ? Findings: No intraluminal filling defect is seen within the opacified ? portions of the pulmonary arterial system. ??The lungs are clear. No ? effusion is seen. No pneumothorax is detected. No mediastinal, hilar ? or axillary adenopathy is detected. ??No pneumothorax is seen. No ? pulmonary effusion is noted. ??The visualized portions of the liver, ? spleen, pancreas and adrenal glands are unremarkable. ? Impression: ? No pulmonary embolism detected. ? REPORT SIGNED IN OTHER VENDOR SYSTEM 03/15/2018 ?Reported By: Oleg Rainey MD ? CC: ? Transcribed Date/Time: 03/15/2018 (1326) ? Video Production Coordinator: ? Printed Date/Time: 05/09/2019 (4296) ? PAGE 1 ? Signed Report ? Procedure Note Oleg Rainey MD - 09/25/2019 EXAM: CAT SCAN/CTA CHEST PE PROTOCOL EX. D/ (1303) CLINICAL INFORMATION: R06.02 SHORTNESS OF BREATH, HX OF PULMONARY EMBOLUS Exam: CTA chest. Indication: R06.02 SHORTNESS OF BREATH, HX OF PULMONARY, EMBOLUS SHORTNESS OF BREATH Technique: Axial enhanced imaging of the chest was performed. CT3-D shaded surface rendering was obtained on a separate RAP Index workstation. I actively participated in the monitoring of the 3-D reconstruction process for this exam. Comparison:None. Findings: No intraluminal filling defect is seen within theopacified portions of the pulmonary arterial system. The lungs are clear. No effusion is seen. No pneumothorax is detected. No mediastinal,hilar or axillary adenopathy is detected. No pneumothorax is seen. No pulmonary effusion is noted. The visualized portions of the liver, spleen, pancreas and adrenal glands are unremarkable. Impression: No pulmonary embolism detected. REPORT SIGNED IN OTHER VENDOR SYSTEM 03/15/2018 Reported By: Oleg Rainey MD CC: Transcribed Date/Time: 03/15/2018 (1326) Video Production Coordinator: Printed Date/Time: 05/09/2019 (2182) PAGE 1 Signed Report Lukas Contreras MD IMG CT ORDERABLES documented in this encounter Visit Diagnoses Not on filedocumented in this encounter Care Teams Advertisement Compositor Relationship Specialty Start Date End Date Lukas Contreras MD [address] [facility] [address] [place] [address] PCP - General 03/04/16 01/12/20 documented as of this encounter
--- OUTSIDE RECORDS SUMMARY | 2024-09-16 15:28 | XMS_ITS ---
Author Organization Unknown Address [address] [place] [phone] Phone Care Team Providers Care Cytotechnologist Supervisor Name Role Phone MIA DENISE Attending Unavailable Results PT PROTHROMBIN TIME* - Colle ct Date/Time: 12/26/2022 09:12 [facility] ID: [id number] - [id number] [address] [place] [address], [address] LOINC: 5902-2 Test Value Unit Reference Range Code Code System Flag PROTIME 13.2 seconds L=9.3 H=11.4 5902-2 LOINC H INR 1.35 L=2.00 H=3.00 16671-6 LOINC L Social History Type Status Start Date End Date Code Code Syst em Smoking History Current every day smoker 862113572 SNOMED CT Sex Male Assessment You had [...] Code Code System DVT OF ARM active 993020296 SNOMED-CT PULMONARY EMBOLISM active 45656624 S NOMED-CT Allergies and Adverse Reactions Allergy Substance Reaction Severity Start Date Concern Status Co de Code System GABAPENTIN Hives (SNOMED-CT: 620497579) Moderate Active 60886 RxNorm Plan of Treatment No Data Found Encounters Encounter Diagnosis Start Date Code Code Sys tem Long-term current use of anticoagulant 12/26/2022 71 [id number] SNOMED-CT Personal Care Team Section Performer Name Performer Role Active Date Inactive Da te
--- OUTSIDE RECORDS SUMMARY | 2024-09-16 15:28 | XMS_ITS | Encounter Summary ---
Author Organization [facility] Address [address] [place] [address] Care Team Providers Care Fresh Foods Cake Decorator Name Role Phone Benny Winter MD Primary Care Provider Un available Encounter Details Date Type Department Care Team (Late st Contact Info) Description 05/22/2013 Anti-coag visit [facility] Cancer Center Hematology & Oncology - [facility] [address] [place], [place] [phone] Divine Odom, RN [address] [place] [address] Social History Tobacco Use Types Packs/Day Years Used Date Smoking Tobacco: Former Cigarettes 0.3 15 Alcohol Use Standard Drinks/Week Comments No 0 (1 standard drink = 0.6 oz pur e alcohol) Sex and Gender Information Value Date Recorded Sex Assigned at Not on file Gender Identity Male 01/13/2020 13:38 EST Sexual Orientation Not on file documented as of this encounter Progress Notes * Divine Odom RN - 05/22/2013 0947 EDT Pt is managed by PCP documented in this encounter Plan of Treatment Not on file documented as of this encounter Visit Diagnoses Not on filedocumented in this encounter Care Teams Fresh Foods Cake Decorator Relationship Specialty Start Date End Date Benny Winter MD PCP - General 06/21/12 07/01/15 documented as of this encounter
--- OUTSIDE RECORDS SUMMARY | 2024-09-16 15:28 | XMS_ITS | Encounter Summary ---
Author Organization [facility] Address [address] [place] [address] Care Team Providers Care Activated Sludge Attendant Name Role Phone Benny Winter MD Primary Care Provider Un available Encounter Details Date Type Department Care Team (Late st Contact Info) Description 08/06/2012 Orders Only [facility] Cancer Center Hematology & On[facility] - [facility] [address] [place], [place] [phone] Divine Odom, RN [address] [place] [address] Primary hypercoagulable state (HCC-CMS) (Primary Dx) Social History Tobacco Use Types Packs/Day Years Used Date Smoking Tobacco: Every Day Cigarettes 0.3 15 Alcohol Use Standard Drinks/Week Comments No 0 (1 standard drink = 0.6 oz pur e alcohol) Sex and Gender Information Value Date Recorded Sex Assigned at Not on file Gender Identity Male 01/13/2020 13:38 EST Sexual Orientation Not on file documented as of this encounter Plan of Treatment Not on file documented as of this encounter Visit Diagnoses Diagnosis Primary hypercoagulable state (HCC-CMS)- Primary Primary hypercoagulable state documented in this encounter Care Teams Activated Sludge Attendant Relationship Specialty Start Date End Date Benny Winter MD PCP - General 06/21/12 07/01/15 documented as of this encounter
--- OUTSIDE RECORDS SUMMARY | 2024-09-16 15:28 | XMS_ITS | Encounter Summary ---
Author Organization [facility] Address [address] [place] [address] Care Team Providers Care Still Operator Brandy Name Role Phone Benny Winter MD Primary Care Provider Un available Lukas Cifuentes MD Primary Care Provider [phone] Lukas Contreras MD Primary Care Provider [phone] Nicole Velasquez MD Primary Care Provider [phone] Encounter Details Date Type Department Care Team (Late st Contact Info) Description 07/25/2012 Orders Only [facility] Cancer Center Hematology & Oncology - [facility] [address] [place], [place] [address] Dannielle Lucio MD [address] [facility] [address] [place] [address] Social History Tobacco Use Types [...] on filedocumented in this encounter Care Teams Still Operator Brandy Relationship Specialty Start Date End Date Benny Winter MD PCP - General 06/21/12 07/01/15 Lukas Cifuentes MD PCP - General 07/02/15 03/03/16 Lukas Contreras MD [address] [place] [address] PCP - General 03/04/16 01/12/20 Nicole Velasquez MD [address] [address] PCP - General 01/13/20 06/27/23 documented as of this encounter
--- OUTSIDE RECORDS SUMMARY | 2024-09-16 15:28 | XMS_ITS | Encounter Summary ---
Author Organization [facility] Address [address] [place] [address] Care Team Providers Care Clerk Of Scales Name Role Phone Benny Winter MD Primary Care Provider Un available Encounter Details Date Type Department Care Team (Latest Contact Info) Description 10/09/2012 11:09 EST - 10/09/2012 23:59 EST Hospital Encounter [facility] Neurophysiology - Main [place] [address], [place] [id number] Unknown, Provider, Discharge Disposition: Home or Self [...] on file documented as of this encounter Medications at Time of Discharge Medication Sig Dispensed Refills Start Date End Date clonAZEPAM (KLONOPIN) 2 mg tablet Take 0.5 mg by mouth 2 times daily. warfarin (COUMADIN) 5 mg tablet Take 2 Tablets by mouth daily. Take in addition to 1mg tabs for total daily dose of 13mg lithium carbonate 300 mg tablet Take 150 mg by mouth daily. 07/03/2015 mirtazapine (REMERON) 15 mg tablet Take 45 mg by mouth every evening 08/31/2020 morphine (MS CONTIN) 60 mg CR tablet Take 60 mg by mouth 4 times daily. 07/03/2015 quetiapine (SEROQUEL) 200 mg tablet Take 200 mg by mouth at bedtime 08/31/2020 documented as of this encounter Discharge Disposition Disposition Code Departure Means Destination Home or Self Nursing Home documented in this encounter Procedure Notes * Harley Tai MD - 10/09/2012 1530 EST Clinical Neurophysiology Laboratory Name: [facility] : [address] [place], [place] Date: 10/09/2012 Electroencephalogram Report Referring Physician: Benny Clifton MD Study Number: [id number] Clinical Indication: A 37 year old man referred for evaluation of paroxysmal episodes of reported altered visual perception, speech difficulty and unstable balance. Medications: Sig ??? warfarin (COUMADIN) 5 mg tablet Take 5 mg by mouth daily. ??? mirtazapine (REMERON) 15 mg tablet Take 15 mg by mouth 3 times daily. ??? lithium carbonate 300 mg tablet Take 150 mg by mouth daily. ??? clonAZEPAM (KLONOPIN) 2 mg tablet Take 2 mg by mouth 3 times daily. ??? quetiapine (SEROQUEL) 200 mg tablet Take 200 mg by mouth 2 times daily. ??? morphine (MS CONTIN) 60 mg CR tablet Take 60 mg by mouth 4 times daily. Technical Description: Standard EEG: An in-laboratory digital EEG is performed utilizing silver-silver chloride electrodesplaced according to the International 10-20 system of electrode placement. CPZ serves as the recording reference electrode. The following additional electrodes are also placed: ECG electrodes ;anterior temporal electrodes The study begins at 1245 until 1317 with a total study duration of 32 minutes. During this study the following states the following were recorded: Wake;Drowsy Subject factors: Cooperative The patient and/or caregivers report:8 hours of sleep night before study; Estimated average 8 hoursof sleep Previous EEG Study? No Findings: 1. Waking cerebral background activity is characterized by an alpha rhythm of 10 Hz that is symmetric, synchronous and reactive to eye opening and an amplitude largely of 30-50 uV. There is mild impairment in frequency regulation. Continuous low amplitude faster frequencies are symmetrically present and admixed low amplitude theta activity occupies about 30% of waking epochs. 2. Hyperventilation is performed for just over 3 minutes with good patient effort and this producesno abnormal responses during or in the minutes following this EEG activating procedure. 3. Photic stimulation is performed utilizing 10 second trains of stimulation by 10 secondintervals without stimulation at flash frequencies between 1 to 20 Hz and then downward from 60 to 25 Hz. This stimulus produces no abnormal responses. 4. Stage I and II sleep recorded. 5. No interictal epileptiform discharges recorded. Impression: Abnormal EEG with the above described findings most consistent with mild diffuse cerebral dysfunction. Clinical Correlation: The abnormality observed in this recording is most likely related to a medication effect, although other co-existing cause of encephalopathy can't be excluded. No interictal epileptiform discharges recorded during this study to help support a diagnosis of epilepsy, though their absence does not exclude this diagnosis. HARLEY TAI MD ABPN Certified, Neurology and Clinical Neurophysiology 15:30 10/15/2012 documented in this encounter Plan of Treatment Not on file documented as of this encounter Visit Diagnoses Not on filedocumented in this encounter Care Teams Clerk Of Scales Relationship Specialty Start Date End Date Benny Winter MD PCP - General 06/21/12 07/01/15 documented as of this encounter
--- OUTSIDE RECORDS SUMMARY | 2024-09-16 15:28 | XMS_ITS ---
Author Organization [facility] Address [address] [place] [address] Care Team Providers Care Client Services Administrator Name Role Phone Zofia Cruz MD Primary Care Provider [phone] Hepatitis C Status:Discharged (Closed) Start date:08/28/2020 Enrollment date:08/28/2020 End date:04/07/2021 Overview Every fill: transfer to [facility] Continued Care and Services Coordination
--- OUTSIDE RECORDS SUMMARY | 2024-09-16 15:28 | XMS_ITS | Encounter Summary ---
Author Organization [facility] Address [address] [place] [address] Care Team Providers Care Topstitcher Lockstitch Name Role Phone Benny Winter MD Primary Care Provider Un available Reason for Visit * Reason Onset Date Comments Appointment Related 10/03/2012 lft msg with MRI on 11/01/2012 @ 9:00am at [facility]; check in @ 8:15am at Registration. Encounter Details Date Type Department Care Team ([facility] Contact Info) Description 10/03/2012 Telephone [facility] Neurology - [address] [id number] Benny Clifton MD [address] [place] [phone] Appointment Related (lft msg with MRI on 11/01/2012 @ 9:00am at [facility]; check in @ 8:15am at Registration.) Social History Tobacco Use Types Packs/Day Years Used Date Smoking Tobacco: Every Day Cigarettes 0.3 15 Alcohol Use Standard Drinks/Week Comments No 0 (1 standard drink = 0.6 oz pur e alcohol) Sex and Gender Information Value Date Recorded Sex Assigned at Not on file Gender Identity Male 01/13/2020 13:38 EST Sexual Orientation Not on file documented as of this encounter Miscellaneous Notes * Telephone Encounter - Jeannette Valencia - 10/03/2012 1431 EST lft msg with MRI on 11/01/2012 @ 9:00am at [facility]; check in @ 8:15am at Registration. documented in this encounter Plan of Treatment Not on file documented as of this encounter Visit Diagnoses Not on filedocumented in this encounter Care Teams Topstitcher Lockstitch Relationship Specialty Start Date End Date Benny Winter MD PCP - General 06/21/12 07/01/15 documented as of this encounter
--- OUTSIDE RECORDS SUMMARY | 2024-09-16 15:28 | XMS_ITS | Encounter Summary ---
Author Organization [facility] Address [facility] [place] [address] Care Team Providers Care Encoding Clerk Name Role Phone Benny Winter MD Primary Care Provider [phone] Encounter Details Date Type Department Care Team (Late st Contact Info) Description 09/23/2011 Orders Only [place] [phone] Stephan Oliva MD [facility] [place] [address] Social History Tobacco Use Types Packs/Day Years Used Date Smoking Tobacco: Never Assessed Sex and Gender Information Value Date Recorded Sex Assigned at Not on file Gender Identity Not on file Sexual Orientation Not on file documented as of this encounter Plan of Treatment Not on file documented as of this encounter Procedures Procedure Name Priority Date/Time Associated Diagnosis Comments FILM LIBRARY STORAGE ONLY MR SPINE Routine 09/23/2011 2:47 PM EDT documented in this encounter Results * FILM LIBRARY- STORAGE ONLY MR SPINE (09/23/2011 2:47 PM EDT) 09/23/2011 2:[address] [facility] - 04/15/2014 11:40 AM EDT This is a non-reportable exam. Procedure Note Candido Wahl - 04/15/2014 This is a non-reportable exam. Stephan Oliva MD IMG FILM LIBRARY ORD ERABLES [facility] [address] [facility] [place] [address] documented in this encounter Visit Diagnoses Not on filedocumented in this encounter Care Teams Encoding Clerk Relationship Specialty Start Date End Date Benny Winter MD [address] [place] [address] PCP - General 11/11/11 10/30/18 documented as of this encounter
--- OUTSIDE RECORDS SUMMARY | 2024-09-16 15:28 | XMS_ITS | Clinical Summary ---
Author Organization [facility] Address [facility] [place] [address] Care Team Providers Care Capper Machine Operator Name Role Phone Unknown Primary Care Provider Unavailabl e Allergies Active Allergy Reactions Criticality Noted Date Comments Gabapentin Itching,Other (See Comments) 012 Swelling Medications Medication Sig Dispensed Refills Start Date End Date Status clonAZEpam (KLONOPIN) 1 mg tablet Take 2 mg by mouth 3 times daily as needed. Active QUEtiapine (SEROQUEL) 100 mg tablet Take 100 mg by mouth daily. Active lithium 150 mg capsule Take 150 mg by mouth daily. Active mirtazapine (REMERON) 45 mg tablet Take 45 mg by mouth nightly. Active morphine (MS CONTIN) 60 mg 12 hr tablet Take 60 mg by mouth 3 times daily. Active Active Problems Problem Noted Date Diagnosed Date Back pain 11/22/2011 Social History Tobacco Use Types Packs/Day Years Used Date Smoking Tobacco: Every Day Cigarettes Sex and Gender Information Value Date Recorded Sex Assigned at Not on file Gender Identity Not on file Sexual Orientation Not on file Last Filed Vital Signs Vital Sign Reading Time Taken Comments Blood Pressure 131/82 11/22/2011 3:50 PM EST Pulse 89 11/22/2011 3:49 PM EST Temperature - - Respiratory Rate - - Oxygen Saturation 99% 11/22/2011 3:49 PM EST Inhaled Oxygen Concentration - - Weight 65.8 kg (145 lb) 11/22/2011 3:49 PM EST Height 185.4 cm (6' 1) 11/22/2011 3:49 PM EST Body Mass Index 19.13 11/22/2011 3:49 PM EST Plan of Treatment Health Maintenance Due Date Last Done Comments CT Colonography 1975 Colonoscopy 1975 Colorectal Cancer Screening 1975 FIT DNA 1975 FIT 1975 Sigmoidoscopy (10 year) with FIT yearly 1975 Sigmoidoscopy 1975 HIV screen 1993 Hepatitis C Screening 1993 Lipid Screening 1993 Hepatitis B vaccine (0-59 yrs) (1) 1994 Tetanus/Diphtheria/Pertussis Vaccines (1 - Tdap) 10/06 Covid-19 Vaccine (1 - 2022- season) 2024 Influenza (Flu) vaccine (1 o f 1 - Influenza standard series) 07/21/2024 Care Teams Capper Machine Operator Relationship Specialty Start Date End Date Unknown None PCP - General 10/31/18
--- OUTSIDE RECORDS SUMMARY | 2024-09-16 15:28 | XMS_ITS | Encounter Summary ---
Author Organization [facility] Address [address] [place] [address] Care Team Providers Care Construction Supervisor Name Role Phone Benny Winter MD Primary Care Provider Un available Reason for Visit * Reason Comments New Patient Visit Encounter Details Date Type Department Care Team (Late st Contact Info) Description 10/02/2012 15:00 EST Office Visit [facility] Adult Neurology - Main [place] [address] [place] [address] Benny Clifton MD [address] [place] [phone] Aphasia (Primary Dx) Discharge Disposition: Auto Discharge Social History Tobacco Use Types Packs/Day Years [...] Sign Reading Time Taken Comments Blood Pressure 120/80 10/02/2012 1455 EST Pulse 64 10/02/2012 1455 EST Temperature - - Respiratory Rate 14 10/02/2012 1455 EST Oxygen Saturation - - Inhaled Oxygen Concentration - - Weight - - Height - - Body Mass Index - - documented in this encounter Discharge Disposition Disposition Code Departure Means Destination Auto Discharge documented in this encounter Progress Notes * HEAD FILTER PRESS TENDER, SCAN 2 - 10/05/2012 0542 EST * Benny Clifton MD - 10/02/2012 1555 EST Subjective: Patient ID: Franky Solomon is an 36 y.o. RH male. Chief Complaint Patient presents with ??? New Patient Visit HPI Here for evaluation of wierd spells that have been occurring for more than 10 years. These spellsare stereotypical, occur a few times weekly, are not inducible or associated with any particular stimuli or position. They typically last 45-60 minutes. They begin with a cloudiness or blurred visionon both sides peripherally, and then extend to his central vision like looking thorough a fishbowl. He then becomes confused, has trouble understanding what is being said to him and is unable to speak more than a bit of gibberish. His gait may be unstable and he has fallen a few times. He feelsmildly, generally weak. There has not been LOC associated with these, nor is there headache or other pain. They seem to be getting progressively worse over time, but have disappeared while he has been on warfarin for Factor V Leiden and PE. 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 He is a single parent to a son of 9 years, and is currently on disability for back pain. Patient Active Problem List Diagnoses ??? Primary hypercoagulable state ??? Bipolar I disorder ??? Panic disorder ??? Chronic back pain Past Medical History Diagnosis Date ??? Bipolar 1 disorder ??? H/O: substance abuse ??? Heterozygous factor V Leiden mutation ??? Pulmonary embolism 12/2011 not confirmed ??? Lumbar nerve root injury ??? Panic disorder 06/27/2012 No past surgical history on file. Family History Problem Relation Age of Onset ??? Clotting Disorder Mother FVL, hormone provoked PE ??? Clotting Disorder Maternal Aunt FVL ??? Heart Disease Maternal Aunt Social History Substance Use Topics ??? Smoking status: Current Everyday Smoker -- 0.2 packs/day for 15 years ??? Smokeless tobacco: Not on file ??? Alcohol Use: No Current Outpatient Prescriptions on File Prior to Visit Medication Sig Dispense Refill ??? warfarin (COUMADIN) 5 mg tablet Take [...] 60 mg by mouth 4 times daily. Allergies Allergen Reactions ??? Depacon (Valproate Sodium) ??? Gabapentin Depakote led to jaundice and gabapentin induced hives. ROS Objective: BP 120/80 Pulse 64 Resp 14 Physical Exam Neurologic Exam Exam: Heart RRR, S1S2 normal without murmur Carotids 2+ without bruits Neuro: MS: Awake, alert, and keenly interactive; History concise, questions relevant; No further formal mental status testing was performed. CN: PERRL; VFF to confrontation; EOMI without nystagmus; no facial motor or sensory asymmetry; hearing intact to finger rub; no dysarthria; tongue midline. Motor: Tone/bulk normal. Strength 5/5 symmetrically without UE drift. Sensory: Intact to LT and T with neither [id number] asymmetry nor peripheral decrement; Romberg was negative. Coor: FN and HS testing revealed no dysmetria. MAC and FFM were intact. DTRs: 2+ throughout with plantar flexor responses. Gait: Narrow-based but antalgic; Tandem, toe and heel walking were intact. Assessment: Multiple, prolonged, recurrent, stereotypical episodes of neurological dysfunction occurring over many years, that seem to have abated on warfarin. Etiology is unclear. These are not typical of stroke, migraine or seizures. Nevertheless, considering the frequency, severity of dysfunction and their l ength, i think it would be useful to obtain EEG and MRI. He will call after having the tests done. There is no need to follow-up if the tests are normal and the episodes do not recur. If they do, i have asked him to return and keep a log of their length and characteristics. We may consider a general preventive such as topiramate. I am unsure of the connection of relief to the use of warfarin. Plan: EEG. MRI head. documented in this encounter Plan of Treatment Not on file documented as of this encounter Procedures Procedure Name Priority Date/Time Associated Diagnosis Comments MR HEAD W/WO CONTRAST 11/01/2012 9:29 EST documented in this encounter Results * MR HEAD W/WO CONTRAST (11/01/2012 9:29 EST) Anatomical Region Laterality Modality Other 11/01/2012 9:29 EST 11/01/2012 11:52 EST Narrative 11/01/2012 11:52 EST MRI of the brain November 01, 2012 at 846. History: Repetitive episodes of encephalopathy. Comparison: None. Technique: Diffusion, sagittal T1, axial gradient, axial T2, axial T2 FLAIR, axial T1, coronal T1, axial T1 postcontrast, coronal T1 postcontrast, and sagittal T1 postcontrast images of the brain were acquired. Findings: There is no intracranial mass, mass effect, or midline shift. No extra-axial collections are identified. There is no restricted diffusion present to suggest recent acute ischemia. The ventricles are normal in size and shape. The basal cisterns are patent. No abnormal enhancement is identified on the post gadolinium images. The orbits appear unremarkable. There is a mucus retention cyst in the right maxillary antrum. A small cyst in the region of the adenoidal soft tissue may reflect the sequelae of prior inflammation or infection. The mastoid air cells are clear. Impression: No acute intracranial abnormality. Procedure Note 11/01/2012 MRI of the brain November 01, 2012 at 846. History: Repetitive episodes of encephalopathy. Comparison: None. Technique: Diffusion, sagittal T1, axial gradient, axial T2, axial T2 FLAIR, axial T1, coronal T1, axial T1 postcontrast, coronal T1 postcontrast, and sagittal T1 postcontrast images of the brain were acquired. Findings: There is no intracranial mass, mass effect, or midline shift. No extra-axial collections are identified. There is no restricted diffusion present to suggest recent acute ischemia. The ventricles are normal in size and shape. The basal cisterns are patent. No abnormal enhancement is identified on the post gadolinium images. The orbits appear unremarkable. There is a mucus retention cyst in the right maxillary antrum. A small cyst in the region of the adenoidal soft tissue may reflect the sequelae of prior inflammation or infection. The mastoid air cells are clear. Impression: No acute intracranial abnormality. Benny Clifton MD IMG MRI ORDERABLES documented in this encounter Visit Diagnoses Diagnosis Aphasia- Primary documented in this encounter Care Teams Construction Supervisor Relationship Specialty Start Date End Date Benny Winter MD PCP - General 06/21/12 07/01/15 documented as of this encounter
--- OUTSIDE RECORDS SUMMARY | 2024-09-16 15:28 | XMS_ITS | Encounter Summary ---
Author Organization [facility] Address [address] [place] [address] Care Team Providers Care Lastex Operator Name Role Phone Bj Villela MD Primary Care Provider Un available Reason for Referral * Vascular Lab (Routine/Next Available) - Closed Specialty Diagnoses / Procedures Referred By Jose madsen Referred To Contact Diagnoses Primary hypercoagulable state (HCC-CMS) Other pulmonary embolism and infarction Procedures VL LOWER VENOUS (DVT) BILATERAL Cristina Marcus NP [address] [address] Referral ID Status Reason Start Date Expiration Date Visits Re quested Visits Authorized [id number] Closed 06/25/2012 1 1 Reason for Visit * Reason Comments New Patient Visit Encounter Details Date Type Department Care Team (Late st Contact Info) Description 06/25/2012 14:00 EDT Office Visit [facility] Cancer Center Hematology & Oncology - [facility] [address] [place], [place] [id number] Lisy Combs MD [address] [address] Primary hypercoagulable state (HCC-CMS) (Primary Dx); Other pulmonary embolism and infarction Social History Tobacco Use Types Packs/Day Years Used Date Smoking Tobacco: Every Day Cigarettes 0.3 15 Tobacco Cessation:Ready to Q uit: No Alcohol Use Standard Drinks/Week Comments No 0 (1 standard drink = 0.6 oz pur e alcohol) Sex and Gender Information Value Date Recorded Sex Assigned at Not on file Gender Identity Male 01/13/2020 13:38 EST Sexual Orientation Not on file documented as of this encounter Last Filed Vital Signs Vital Sign Reading Time Taken Comments Blood Pressure 126/78 06/25/2012 1359 EDT Pulse 69 06/25/2012 1359 EDT Temperature 35.4 ??C (95.7 ??F) 06/25/2012 1359 EDT Respiratory Rate 16 06/25/2012 1359 EDT Oxygen Saturation - - Inhaled Oxygen Concentration - - Weight 97.3 kg (214 lb 6.4 oz) 06/25/2012 1359 E DT Height 182.5 cm (5' 11.85) 06/25/2012 1359 EDT Body Mass Index 29.2 06/25/2012 1359 EDT documented in this encounter Patient Instructions * Patient Instructions* Cristina Marcus NP - 06/25/2012 14:59 EDT Thrombosis Testing Instructions We have ordered lab tests for you. The results will help us determine if you have a blood clot. 1. Stop taking Warfarin today. 2. Come to [facility] for lab testing and ultrasounds on July 09. 3. Please do not restart your Warfarin unless someone from our office instructs you to do this. 4. Your follow-up appointment with the tin assorter to discuss the results is July 16 at 2 pm . Please notify Divine Odom RN at if any of the following occurs: 1. If you are unable to make any of these dates or forget to stop your Warfarin. 2. If the need for long travel, surgery or hospital stay comes up any time while you are off your Warfarin. 3. If you get symptoms of new blood clots like pain or swelling of a leg, or chest pain or trouble bleeding. If you cannot reach Divine right away, call your primary care provider or tin assorter, or go to the emergency department if you are in distress. documented in this encounter Progress Notes * Cristina Marcus NP - 06/25/2012 2804 EDT Thrombosis & Hemostasis Program (THP) Consult H&P Date of Service: 06/26/2012 PCP: BJ VILLELA MD Reason for Visit: Referral for patient with PE and family history Factor V Leiden HPI: Mr. Franky Solomon is a 36-year-old male referred to us for pulmonary embolism in December of 2011 with a positive family history of factor V Leiden and thrombosis on his mother's side, a patient Dr. Combs has seen in the past. He reports that all of the men on his mother's side of the family have had problems with blood clotting. He has bipolar disorder, panic disorder, and a remote history of substance abuse. He suffers from right lower extremity neuropathy due to lumbar disk injury with associated chronic back pain. He has a history of recurrent (almost weekly) episodes of sudden onset blurry vision and numbness in his lips, hands, and arms. These episodes are occasionally accompanied by palpitations, chest pain and shortness of breath. These were worked up by various doctors and thought to be related to anxiety or hypoglycemia. He has never had an event monitor or Holter monitor. In December 2011, he experienced one of these episodes, but felt it was far worse than in the past, lasting 25 minutes, so took himselfto the emergency department at [facility] for evaluation. There is some confusion between his recollection of the story (unclear if he had chest pain) and the emergency dept record that we reviewed, which stated he had pleuritic chest pain. He does seem to recall SOB. A CT angiogram was completed which showed a questionable pulmonary embolism in a branch of the right upper lobe pulmonary artery. No repeat imaging was performed and the patient was initiated on anticoagulation with Lovenox with eventual bridge to warfarin. Due to family hx of Factor V Leiden, he was tested while at [facility] and found to be heterozygous for this mutation. He is accompanied today by his son and his mother, Carmenza Dewitt, who is also a patient of ours withfactor V Leiden and a history of hormone provoked PE. 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 At today's visit, he denies any chest pain, shortness of breath, chest tightness, palpitations, fevers, chills, night sweats, or lower extremity swelling. He notes that while on warfarin he has not had any of his chronic 'episodes' as described above. He has had no abnormal bleeding episodes while on anticoagulation and states his INRs have been relatively stable, asmanaged by his primary care provider, Dr Villela. ROS: Symptom report form reviewed with the patient and can be referred to in the chart. Pertinent positives and negatives listed above in the history of present illness. The rest of the systems are negative. Past Medical History: Patient has a past medical history of Bipolar 1 disorder; H/O: substance abuse; Heterozygous factorV Leiden mutation; Pulmonary embolism (12/2011); Lumbar nerve root injury; and Panic disorder (06/27/2012). Past Surgical History: No past surgical history Family History: Patient's Family History Problem Relation Age of Onset ??? Clotting Disorder Mother FVL, hormone provoked PE ??? Clotting Disorder Maternal Aunt FVL ??? Heart Disease Maternal Aunt Social History: Patient reports that he has been smoking. He does not have any smokeless tobacco history on file. He reports that he does not drink alcohol or use illicit drugs. History Social History Narrative Single father. Currently receiving disability. Medications: lithium carbonate, warfarin, clonazepam, mirtazapine, morphine, quetiapine, and acetaminophen Allergies: Patient is allergic to gabapentin. Objective: BP 126/78 Pulse 69 Temp(Src) 35.4 ??C (95.7 ??F) (Tympanic) Resp 16 Ht 182.5 cm (71.85) Wt 97.251 kg (214 lb 6.4 oz) BMI 29.20 kg/m2 Estimated Body mass index is 29.20 kg/(m^2) as calculated from the following: Height as of this encounter: 5' 11.85(1.825 m). Weight as of this encounter: 214 lb 6.4 oz(97.251 kg). Physical Exam: General: Overweight male;Alert and cooperative and in no acute distress. Eyes: Conjunctivae not injected, nonicteric. Lungs: Clear to auscultation bilaterally. Heart: Regular, normal S1 and S2, no murmurs, rubs, or gallops Abdomen: Soft, non-tender on palpation. Extremities: No peripheral edema, discoloration, visible varicosities or palpable cords. Labs: [facility], 01/14/2012: Factor V Leiden heterozygous, Hep B surface antibody negative, Hep A surface antibody negative, Hep C surface antibody reactive. CMP normal with the exception of elevated ALT of 82, hemoglobin 16.1, hematocrit 47, MCV 86, WBC 9.3, RBC 5.39, platelets 260. No D-Dimer on record, O2 Sat in the ED was 97%. Imaging: CT angiography pulmonary 01/14/2012 at [facility] revealed a questionable pulmonary embolus in a branch of the right upper lobe pulmonary artery. The findings are not definite however, this possibility cannot be excluded on the basis of present examination. No leg ultrasound done. Assessment: 36-year-old male heterozygous for factor V Leiden mutation who was diagnosed with unprovoked pulmonary embolism in December 2011 after presenting to [facility] with chest pain and shortness of breath. CT angiography showed questionable PE in a branch of the right upper lobe pulmonary artery. The patient has had similar episodes of chest pain and shortness of breath in the past inthe setting of what sounds like anxiety attacks, however, the symptoms in December seemed worse to the patient. He been on anticoagulation since that time. It is not clear to us that he really did have a PE based on the atypical symptoms, lack of hypoxia, uncertain imaging. Unfortunately we don't have a D- dimer drawn from that time or leg ultrasounds to help solidify either way whether this was aPE. The question is important since sometimes we anticoagulation long-term even after a single episode of thrombosis. Risk factors for recurrent VTE include heterozygous factor V Leiden and family history of thrombosis. He is working on his weight and has lost 23 pounds through diet modification since PE diagnosis.This is fortunate since obesity increases the risk of both first and recurrent VTE. Given the patient's questionable PE, we will plan on discontinuing warfarin today for the purpose of a full thrombophilia workup (with the exception of FVL) as well as bilateral lower extremity ultrasounds to assess for evidence of chronic DVT. We will get him back in shortly after his testing for risk stratification to determine if secondary prevention is appropriate. Plan: - Stop warfarin today. -We will request his CT from [facility] for a second read here. -Thrombophilia panel in 2 weeks, patient instructed to come to [facility] for his lab draw -Bilateral lower extremity ultrasounds to assess for evidence of previous DVT -Counseled on healthy lifestyle and weight loss. Congratulated on 23 lb loss! -Counseled on concerning signs/symptoms of VTE and instructed to seek medical evaluation immediately if they occur -Follow-up with Dr. Combs in 1 month to review lab results and discuss risk of VTE moving forward. Please contact my office with questions/concerns. Cristina Marcus, FOOT PIECE ASSEMBLER [phone] *I spent a total of 50 minutes in face to face time with this patient today and >30 minutes was spent in direct education and counseling. Attestation statement: I saw and examined the patient with the nurse practitioner. I agree with thefindings and plan of care documented in her note, which I edited. I counseled the patient personally as above. LISY COMBS MD cc: BJ VILLELA MD documented in this encounter Plan of Treatment Not on file documented as of this encounter Procedures Procedure Name Priority Date/Time Associated Diagnosis Comments VL LOWER VENOUS (DVT) BILATERAL Routine 08/07/2012 15:33 EDT Primary hypercoagulable state ([facility]) Other pulmonary embolism and infarction documented in this encounter Results * VL LOWER VENOUS (DVT) BILATERAL (08/07/2012 15:33 EDT) Anatomical Region Laterality Modality Other 08/07/2012 15:3 3 EDT 08/08/2012 15:29 EDT Narrative 08/08/2012 15:29 EDT LOWER EXTREMITY VENOUS DUPLEX ULTRASOUND PROCEDURE: ??Bilateral Lower Extremity Venous Duplex. Common femoral, proximal profunda femoral, femoral, popliteal, posterior tibial, peroneal, and greater saphenous veins are routinely examined with 2D compression, color and spectral Doppler. [id number]. ? INDICATION: PE. ? HISTORY: ?Previous PE, Primary hypercoagulable state. ? SONOGRAPHIC FINDINGS RIGHT: ?? Normal right lower extremity venous duplex exam. All segments visualized were compressible with phasic and spontaneous flow. ?? Hypoplastic peroneal artery and veins noted in the high calf. Vessels not contiguous inferioirly. ?? LEFT: ?Normal left lower extremity venous duplex exam. All segments visualized were compressible with phasic and spontaneous flow. ?? Preliminary test results given to Hussein Wolff at 1530; acceptance was acknowledged and the findings were read back. ?? IMPRESSION No evidence of deep or superficial venous thrombosis in the bilateral lower extremities. Procedure Note 08/08/2012 LOWER EXTREMITY VENOUS DUPLEX ULTRASOUND PROCEDURE: Bilateral Lower Extremity Venous Duplex. Common femoral, proximal profunda femoral, femoral, popliteal, posterior tibial, peroneal, and greater saphenous veins are routinely examined with 2D compression, color and spectral Doppler. [id number]. INDICATION: PE. HISTORY: Previous PE, Primary hypercoagulable state. SONOGRAPHIC FINDINGS RIGHT: Normal right lower extremity venous duplex exam. All segments visualized were compressible with phasic and spontaneous flow. Hypoplastic peroneal artery and veins noted in the high calf. Vessels not contiguous inferioirly. LEFT: Normal left lower extremity venous duplex exam. All segments visualized were compressible with phasic and spontaneous flow. Preliminary test results given to Hussein Wolff at 1530; acceptance was acknowledged and the findings were read back. IMPRESSION No evidence of deep or superficial venous thrombosis in the bilateral lower extremities. Cristina Marcus SUPERVISOR FISH PROCESSING IMG US VASCULAR ORD ERABLES documented in this encounter Visit Diagnoses Diagnosis Primary hypercoagulable state ([facility])- Primary Primary hypercoagulable state Other pulmonary embolism and infarction documented in this encounter Historical Medications * This list may reflect changes made after this encounter. Medication Sig Dispensed Refills Start Date End Date clonAZEPAM (KLONOPIN) 2 mg tablet Take 0.5 mg by mouth 2 times daily. ACETAMINOPHEN (TYLENOL ORAL) Take 2 Tabs by mouth as needed. 08/13/2012 morphine (MS CONTIN) 60 mg CR tablet Take 60 mg by mouth 4 times daily. 07/03/2015 quetiapine (SEROQUEL) 200 mg tablet Take 200 mg by mouth at bedtime 08/31/2020 lithium carbonate 300 mg tablet Take 150 mg by mouth daily. 07/03/2015 mirtazapine (REMERON) 15 mg tablet Take 45 mg by mouth every evening 08/31/2020 warfarin (COUMADIN) 5 mg tablet Take 5 mg by mouth daily. 08/13/2012 added in this encounter Care Teams Lastex Operator Relationship Specialty Start Date End Date Bj Villela MD PCP - General 06/21/12 07/01/15 documented as of this encounter
--- OUTSIDE RECORDS SUMMARY | 2024-09-16 15:28 | XMS_ITS | Encounter Summary ---
Author Organization [facility] Address [address] [place] [address] Care Team Providers Care Manager Environmental Health Name Role Phone Benny Winter MD Primary Care Provider Un available Reason for Visit * Reason Onset Date Comments Labs Only 12/18/2012 Encounter Details Date Type Department Care Team (Late st Contact Info) Description 12/18/2012 Telephone [facility] Cancer Center Hematology & Oncology - [facility] [address] [place], [place] [id number] Divine Odom, RN [address] [place] [address] Labs Only Social History Tobacco Use Types Packs/Day Years [...] Miscellaneous Notes * Telephone Encounter - Divine Odom RN - 12/18/2012 9782 EST Left message that pt should stop warfarin 01/07/13 have dRVVT on 02/21/13 1 hour prior to 01/21/[address] Lucio. Pt or mother can call clinic with any questions. documented in this encounter Plan of Treatment Not on file documented as of this encounter Visit Diagnoses Not on filedocumented in this encounter Care Teams Manager Environmental Health Relationship Specialty Start Date End Date Benny Winter MD PCP - General 06/21/12 07/01/15 documented as of this encounter
--- OUTSIDE RECORDS SUMMARY | 2024-09-16 15:28 | XMS_ITS | Encounter Summary ---
Author Organization [facility] Address [address] [place] [address] Care Team Providers Care Modern And Contemporary Art Curator Name Role Phone Benny Winter MD Primary Care Provider Un available Encounter Details Date Type Department Care Team (Late st Contact Info) Description 07/24/2012 Orders Only [facility] Cancer Center Hematology & Oncology - [facility] [address] [place], [place] [address] Dannielle Lucio MD 111 [facility] [address] [place] [address] Social History Tobacco Use Types [...] on filedocumented in this encounter Care Teams Modern And Contemporary Art Curator Relationship Specialty Start Date End Date Benny Winter MD PCP - General 06/21/12 07/01/15 documented as of this encounter
--- OUTSIDE RECORDS SUMMARY | 2024-09-16 15:28 | XMS_ITS | Encounter Summary ---
Author Organization [facility] Address [address] [place] [address] Care Team Providers Care Coconut Candy Maker Name Role Phone Benny Winter MD Primary Care Provider Un available Reason for Visit * Reason Onset Date Comments Appointment Related 08/13/2012 for TIA vs. seizure, please call to schedule appt. Encounter Details Date Type Department Care Team ([facility] Contact Info) Description 08/13/[address] [facility] Neurology - [address] [phone] Bradley Bemrudez MD [address] [facility] [address] [place] [address] Appointment Related (for TIA vs. seizure, please call to schedule appt.) Social History Tobacco Use Types Packs/Day Years [...] encounter Miscellaneous Notes * Telephone Encounter - Rashmi Oneill - 10/02/2012 1222 EST . documented in this encounter Plan of Treatment Not on file documented as of this encounter Visit Diagnoses Not on filedocumented in this encounter Care Teams Coconut Candy Maker Relationship Specialty Start Date End Date Benny Winter MD PCP - General 06/21/12 07/01/15 documented as of this encounter
--- OUTSIDE RECORDS SUMMARY | 2024-09-16 15:28 | XMS_ITS | Encounter Summary ---
Author Organization [facility] Address [address] [place] [address] Care Team Providers Care Automotive Parts Counter Person Name Role Phone Bj Villela MD Primary Care Provider Un available Reason for Referral * Consult (Routine/Next Available) - Closed Specialty Diagnoses / Procedures Referred By Jose madsen Referred To Contact Neurology Diagnoses Primary hypercoagulable state (HCC-CMS) Cristina Marcus NP [address] [phone] Bj Clifton MD [address] [place] [phone] Referral ID Status Reason Start Date Expiration Date V isits Requested Visits Authorized [id number] Closed Specialty Services Required 08/13/2012 1 1 Question Answer Reason for Request: evaluate for TIA vs seizure in patient with suspected antiphospholipid antibody syndrome Comments Patient having neurologic symptoms that resolve with anticoagulation. Reason for Visit * Reason Comments Follow-up Encounter Details Date Type Department Care Team ([facility] Contact Info) Description 08/13/2012 14:30 EDT Office Visit [facility] Cancer Center Hematology & Oncology - [facility] [address] [place] [address] Lisy Combs MD [address] [phone] Primary hypercoagulable state (HCC-CMS) (Primary Dx) Discharge Disposition: Auto Discharge Social [...] Sign Reading Time Taken Comments Blood Pressure 117/78 08/13/2012 1443 EDT Pulse 70 08/13/2012 1443 EDT Temperature 36.2 ??C (97.2 ??F) 08/13/2012 1443 EDT Respiratory Rate 16 08/13/2012 1443 EDT Oxygen Saturation - - Inhaled Oxygen Concentration - - Weight 97.3 kg (214 lb 9.6 oz) 08/13/2012 1443 E DT Height 182.5 cm (5' 11.85) 08/13/2012 1443 EDT Body Mass Index 29.23 08/13/2012 1443 EDT documented in this encounter Patient Instructions * Patient Instructions* Cristina Marcus NP - 08/13/2012 15:13 EDT Anticoagulation Restart: 1) Start Lovenox 60 mg injections on Monday morning (08/15) and take once daily until your INR is2.0-3.0. information support project manager your Lovenox prescription today on the 4th Floor. 2) Restart warfarin Monday evening (08/15) at prior dosing. 3) Check INR August 20. [facility] will call you with instructions. Anticoagulation Stop: 4) Stop warfarin December 20. 5) Come to [facility] for lupus anticoagulant testing on January 10. 6) Follow up with Dr Combs on January 21. documented in this encounter Ordered Prescriptions Prescription Sig Dispensed Refills Start Date End Da te enoxaparin (LOVENOX) 60 mg/0.6 mL injection Inject 60 mg into the skin daily for 10 doses. 10 Syringe 0 08/13/2012 08/23/2012 documented in this encounter Discharge Disposition Disposition Code Departure Means Destination Auto Discharge documented in this encounter Progress Notes * Cristina Marcus NP - 08/13/2012 2372 EDT Thrombosis & Hemostasis Program (THP) Follow Up Visit Date of Service: 08/13/2012 Reason for Visit: Follow-up for unprovoked pulmonary embolism Problem List: Patient Active Problem List Diagnoses ??? Bipolar 1 disorder ??? Panic disorder ??? Back pain, chronic ??? Primary hypercoagulable state 1) Unprovoked pulmonary embolism, 12/2011. Single intersegmental PE; Lovenox to warfarin x 6 months. 2) Thrombosis panel: Factor V Leiden heterozygote and lupus anticoagulant documented off warfarin 07/2012. D-dimer <200 3) Family hx of FVL and VTE. Mother with FVL and hormone provoked PE HPI: Mr Solomon returns today to discuss results of his thrombophilia panel. He suffered an unprovoked pulmonary embolism in December 2011 and received 6 months of anticoagulation with subsequent imaging showing resolution of emboli. He is accompanied today by his son and mother Carmenza Godfrey (also a patient of our clinic with known FVL and elevated FVIII). He denies any new onset SOB, chest pain, pal pitations, fevers, chills or night sweats. He has ongoing LE pain and swelling from a low back injury. He reports complete resolution of chronic transient syncopal-type episodes since starting warfarin. He was advised by his PCP to see a neurologist but is unsure if a referral has been made yet. ROS: Symptom report form reviewed with the patient and can be referred to in the chart. Pertinent positives and negatives listed above in the history of present illness. The rest of the systems are negative. Social History: Patient reports that he has been smoking. He does not have any smokeless tobacco history on file. He reports that he does not drink alcohol or use illicit drugs. History Social History Narrative Single father. Currently receiving disability. Medications: Medication Sig ??? enoxaparin (LOVENOX) 60 mg/0.6 mL injection Inject 60 mg into the skin daily for 10 doses. ??? warfarin (COUMADIN) 5 mg tablet Take 5 mg by mouth daily. ??? mirtazapine (REMERON) 15 mg tablet Take 15 mg by mouth 3 times daily. ??? lithium carbonate 300 mg tablet Take 300 mg by mouth daily. ??? clonAZEPAM (KLONOPIN) 2 mg tablet Take 2 mg by mouth 3 times daily. ??? quetiapine (SEROQUEL) 200 mg tablet Take 200 mg by mouth 2 times daily. ??? morphine (MS CONTIN) 60 mg CR tablet Take 60 mg by mouth 4 times daily. Allergies: Patient is allergic to depacon and gabapentin. Physical Exam: Filed Vitals: 08/13/12 1443 BP: 117/78 Pulse: 70 Temp: 36.2 ??C (97.2 ??F) TempSrc: Tympanic Resp: 16 Height: 182.5 cm (71.85) Weight: 97.342 kg (214 lb 9.6 oz) Estimated Body mass index is 29.23 kg/(m^2) as calculated from the following: Height as of this encounter: 5' 11.85(1.825 m). Weight as of this encounter: 214 lb 9.6 oz(97.342 kg). Physical exam is not repeated. Entire visit was devoted to reviewing his thrombosis panel, antiphospholipid antibody testing, and secondary VTE prevention. Labs: Thrombosis Panel Lab Results Component Value Date PROTIME 10.0 08/06/2012 INR 0.9 08/06/2012 PTT 33 08/06/2012 DDIMER 202 08/06/2012 ANTITHROM 128* 08/06/2012 [id number] Heterozygous 08/06/2012 [id number] 149* 08/06/2012 PROTCCLOT 124 08/06/2012 PROTSCLOT 98 08/06/2012 CARDIOLIGGC 5.27 08/06/2012 CARDIOLIGMC 4.23 08/06/2012 DRVVT 46.3* 08/06/2012 PROTHRPROGMU Negative 08/06/2012 Imagin08/07/12 VL B/L LE Ultrasound: No evidence of deep or superficial venous thrombosis in the bilaterallower extremities. CT Chest Re-read on 08/10/12 by [facility]: CT chest on 01/14/2012 demonstrates an single pulmonary embolus within an intersegmental pulmonary of the right upper lobe. There is mild dilatation of the involved pulmonary artery. This finding resolves on the subsequent exam on 07/02/2012. No additional emboli are appreciated on either study. Hepatic steatosis. Assessment: 36-year-old male diagnosed with unprovoked pulmonary embolism in December 2011 after presenting to [facility] with chest pain and shortness of breath. CT angiography showed questionable PE in a branch of the right upper lobe pulmonary artery. Re-read by [facility] radiology confirms presence of PE on initial imaging study with resolution on subsequent study in June. Following his initial visit with us on 06/25, patient discontinued warfarin for the purpose of thrombophilia testing. Testing was significant for heterozygosity for Factor V Leiden and an elevated DRVVT suggestive of possible antiphospholipid antibodies, although this diagnosis requires repeated abnormal testing 12 weeks following initial test. This finding could be a transient positive result with no clinical consequence, so we will plan on retesting in Dec 2011. In the interim, due to known hypercoagulability with a positive lupus anticoagulant, he should be restarted on anticoagulation. His D-dimer was normal, which would otherwise indicate a low risk of recurrent PE or DVT. Plan: Anticoagulation Restart: 1) Start Lovenox 60 mg injections on Monday morning (08/15) and take once daily until INR is 2.0-3.0. 2) Restart warfarin Monday evening (08/15) at prior dosing. 3) Check INR August 20. [facility] will call you with instructions. Anticoagulation Stop: 4) Stop warfarin December 20. 5) Come to [facility] for lupus anticoagulant testing on January 10. 6) Follow up with Dr Combs on January 21. -Neurology consult to evaluate for TIAs vs seizures. Neuro symptoms have resolved with anticoagulation. -Counseled on concerning signs/symptoms of VTE and instructed to seek medical evaluation immediately if they occur Please contact my office with questions/concerns. BROOKLYN Casillas Thrombosis and Hemostasis Program Attestation statement: I saw and examined the patient with the nurse practitioner. I agree with thefindings and plan of care documented in her note, which I edited. I would like to see him actually 1 week after his repeat dRVVT this winter. Will re-plan the above schedule to facilitate this. I spent a total of 25 minutes in face to face time with this patient today and >15 minutes was spent in direct patient education and counseling. LISY COMBS MD pharmacy technician Director, Thrombosis and Hemostasis Program CC: BJ VILLELA MD documented in this encounter Plan of Treatment Scheduled Referrals Name Type Priority Associated Diagnoses Orde r Schedule AMB CONSULT NEUROLOGY Outpatient Referral Routine Primary hypercoagulable state ([facility]-CMS) Ordered: 08/13/2012 documented as of this encounter Visit Diagnoses Diagnosis Primary hypercoagulable state (HCC-CMS)- Primary Primary hypercoagulable state documented in this encounter Discontinued Medications Medication Sig Discontinue Reason Start Date End Da te ACETAMINOPHEN (TYLENOL ORAL) Take 2 Tabs by mouth as needed. 08/13/2012 warfarin (COUMADIN) 5 mg tablet Take 5 mg by mouth daily. 08/13/2012 documented as of this encounter Historical Medications * This list may reflect changes made after this encounter. Medication Sig Dispensed Refills Start Date End Date warfarin (COUMADIN) 5 mg tablet Take 2 Tablets by mouth daily. Take in addition to 1mg tabs for total daily dose of 13mg added in this encounter Care Teams Automotive Parts Counter Person Relationship Specialty Start Date End Date Bj Villela MD PCP - General 06/21/12 07/01/15 documented as of this encounter
--- OUTSIDE RECORDS SUMMARY | 2024-09-16 15:28 | XMS_ITS | Encounter Summary ---
Author Organization [facility] Address [address] [place] [address] Care Team Providers Care Hospice Clinical Manager Name Role Phone Benny Winter MD Primary Care Provider Un available Reason for Visit * Reason Onset Date Comments Appointment Related 09/17/2014 Encounter Details Date Type Department Care Team (Late st Contact Info) Description 09/17/2014 Telephone [facility] Cancer Center Hematology & Oncology - [address] [phone] Dannielle Moreno MD 111 [facility] [address] [place] [address] Appointment Related Social History Tobacco [...] encounter Miscellaneous Notes * Telephone Encounter - Renetta Bond - 09/17/2014 1516 EDT LMOM for Becky stating returning her call to schedule Mr. Solomon. Gave my direct line for her to call me back. This is because patient was scheduled for FUR with Cristina Marcus NP and not Dr. Moreno, I want to make sure that that's okay. * Telephone Encounter - Cecy De Jesus - 09/17/2014 1043 EDT Doctor office calling to set up follow for this pt with dr moreno documented in this encounter Plan of Treatment Not on file documented as of this encounter Visit Diagnoses Not on filedocumented in this encounter Care Teams Hospice Clinical Manager Relationship Specialty Start Date End Date Benny Winter MD PCP - General 06/21/12 07/01/15 documented as of this encounter
--- OUTSIDE RECORDS SUMMARY | 2024-09-16 15:28 | XMS_ITS | Encounter Summary ---
Author Organization [facility] Address [address] [place] [address] Care Team Providers Care Him Coder Name Role Phone Benny Winter MD Primary Care Provider Un available Encounter Details Date Type Department Care Team (Late st Contact Info) Description 07/16/2012 Results Only Imaging [facility]- [facility] [phone] Unknown, Provider, Social History Tobacco Use Types [...] on filedocumented in this encounter Care Teams Him Coder Relationship Specialty Start Date End Date Benny Winter MD PCP - General 06/21/12 07/01/15 documented as of this encounter
--- OUTSIDE RECORDS SUMMARY | 2024-09-16 15:28 | XMS_ITS | Encounter Summary ---
Author Organization [facility] Address [address] [place] [address] Care Team Providers Care Shower Room Attendant Name Role Phone Benny Winter MD Primary Care Provider Un available Encounter Details Date Type Department Care Team (Late st Contact Info) Description 07/24/2012 Orders Only [facility] Cancer Center Hematology & Oncology - [facility] [address], [place] [phone] Dannielle Lucio MD 111 [facility] [address] [place] [address] Social History Tobacco Use Types [...] on filedocumented in this encounter Care Teams Shower Room Attendant Relationship Specialty Start Date End Date Benny Winter MD PCP - General 06/21/12 07/01/15 documented as of this encounter
--- OUTSIDE RECORDS SUMMARY | 2024-09-16 15:28 | XMS_ITS | Encounter Summary ---
Author Organization [facility] Address [address] [place] [address] Care Team Providers Care Steno Pool Supervisor Name Role Phone Benny Winter MD Primary Care Provider Un available Lukas Cifuentes MD Primary Care Provider [phone] Lukas Contreras MD Primary Care Provider [phone] Nicole Velasquez MD Primary Care Provider Zofia Cruz MD Primary Care Provider [phone] Encounter Details Date Type Department Care Team (Late st Contact Info) Description 01/24/2013 Telephone [facility] Cancer Center Hematology & Oncology - [facility] [address] [place] [address] Dannielle Lucio MD 111 [facility] [address] [place] [address] Social History Tobacco Use Types [...] on filedocumented in this encounter Care Teams Steno Pool Supervisor Relationship Specialty Start Date End Date Benny Winter MD PCP - General 06/21/12 07/01/15 Lukas Cifuentes MD PCP - General 07/02/15 03/03/16 Lukas Contreras MD [address] [place] [id number] PCP - General 03/04/16 01/12/20 Nicole Velasquez MD [address] [address] PCP - General 01/13/20 06/27/23 Zofia Cruz MD [address] [place] [phone] PCP - General 06/28/23 documented as of this encounter
--- OUTSIDE RECORDS SUMMARY | 2024-09-16 15:28 | XMS_ITS | Encounter Summary ---
Author Organization [facility] Address [address] [place] [address] Care Team Providers Care Inspector Multifocal Lens Name Role Phone Benny Winter MD Primary Care Provider Un available Encounter Details Date Type Department Care Team (Late st Contact Info) Description 08/06/2012 8:57 EDT - 08/06/2012 23:59 EDT Hospital Encounter [address] [address] Dannielle Lucio MD 111 [facility], [address] [place] [phone] Discharge Disposition: Auto Discharge Social History Tobacco [...] 2 Tabs by mouth as needed. 08/13/2012 lithium carbonate 300 mg tablet Take 150 mg by mouth daily. 07/03/2015 mirtazapine (REMERON) 15 mg tablet Take 45 mg by mouth every evening 08/31/2020 morphine (MS CONTIN) 60 mg CR tablet Take 60 mg by mouth 4 times daily. 07/03/2015 quetiapine (SEROQUEL) 200 mg tablet Take 200 mg by mouth at bedtime 08/31/2020 warfarin (COUMADIN) 5 mg tablet Take 5 mg by mouth daily. 08/13/2012 documented as of this encounter Discharge Disposition Disposition Code Departure Means Destination Auto Discharge Home documented in this encounter Plan of Treatment Pending Results Name Type Priority Associated Diagnoses Date /Time OUTSIDE IMAGES - CT CHEST Imaging 08/10/2012 13:12 EDT Scheduled Orders Name Type Priority Associated Diagnoses Orde r Schedule OUTSIDE IMAGES - CT CHEST Imaging For medications that can be administered at any time during the hospitalization for visit such as immunizations. for 1 Occurrences starting 08/10/2012 documented as of this encounter Visit Diagnoses Not on filedocumented in this encounter Care Teams Inspector Multifocal Lens Relationship Specialty Start Date End Date Benny Winter MD PCP - General 06/21/12 07/01/15 documented as of this encounter
--- OUTSIDE RECORDS SUMMARY | 2024-09-16 15:28 | XMS_ITS | Encounter Summary ---
Author Organization [facility] Address [address] [place] [address] Care Team Providers Care Candle Wrapper Name Role Phone Benny Winter MD Primary Care Provider Un available Reason for Visit * Reason Comments Follow-up Encounter Details Date Type Department Care Team (Late st Contact Info) Description 01/21/2013 13:30 EST Office Visit [facility] Cancer Center Hematology & Oncology - [address] [phone] Dannielle Lucio MD [address] [place] [address], [address] [place] [address] Antiphospholipid antibody positive (Primary Dx); Other pulmonary embolism and infarction [...] Sign Reading Time Taken Comments Blood Pressure 117/82 01/21/2013 1312 EST Pulse 92 01/21/2013 1312 EST Temperature 36.4 ??C (97.6 ??F) 01/21/2013 1312 EST Respiratory Rate 16 01/21/2013 1312 EST Oxygen Saturation - - Inhaled Oxygen Concentration - - Weight 97.2 kg (214 lb 4.6 oz) 01/21/[address] Height 182.5 cm (5' 11.85) 01/21/2013 1312 EST Body Mass Index 29.18 01/21/2013 1312 EST documented in this encounter Patient Instructions * Patient Instructions* Dannielle Lucio MD - 01/21/2013 13:41 EST 1. Lovenox 60 mg daily. Start tonite and continue each morning. 2. Begin warfarin (coumadin) tomorrow night. Take 7.5 mg every day except 10 mg on Mon, , Sat. 3. Check INR on Monday or Monday with your PCP. 4. Need to stay on lovenox until your INR is >2.0. 5. No more finger stick INR tests unless you hear from me (eg. If your lupus anticoagulant comes out negative this time). documented in this encounter Ordered Prescriptions Prescription Sig Dispensed Refills Start Date End Da te enoxaparin (LOVENOX) 60 mg/0.6 mL injectionIndications:Ant iphospholipid antibody positive,Other pulmonary embolism and infarction Inject 60 mg into the skin daily. 10 Syringe 0 01/21/2013 09/08/2015 documented in this encounter Progress Notes * Dannielle Lucio MD - 01/21/2013 1259 EST Thrombosis & Hemostasis Program (THP) Follow Up Visit Date of Service: 01/21/2013 Problem List: Patient Active Problem List Diagnoses ??? Former smoker Using electronic cigarettes as transition 3-13 ??? Bipolar I disorder ??? Panic disorder ??? Chronic back pain ??? Primary hypercoagulable state 1) Unprovoked pulmonary embolism, 12/2011. Single intersegmental PE; Lovenox to warfarin x 6 months. 2) Thrombosis panel: Factor V Leiden heterozygote and lupus anticoagulant documented off warfarin 07/2012. D-dimer <200 3) Family hx of FVL and VTE. Mother with FVL and hormone provoked PE. Mother's aunt had VTE. Mother's dad and mom also had VTE CC: Chief Complaint Patient presents with ??? Follow-up HPI: history as in the problem list and reviewed with patient. Stopped warfarin on 2 weeks ago for lab testing and about 3 days later started having neuro episodes again. Starts with visual change peripherally that looks like he is looking through water. Gets numbness eventually of face and feels confused and has abnormal speech. It lasts 30-45 min. Occurring every other day. Had labs recently with PCP and lipid panel was normal. ROS: I completed a 10 point review of systems which is documented on the follow up visit form scanned into [facility] Pertinent positives: per form. Pertinent negatives: per form Social History: Patient reports that he has quit smoking. He does not have any smokeless tobacco history on file. He reports that he does not drink alcohol or use illicit drugs. History Social History Narrative Single father. Currently receiving disability. Son having tonsils out next week. He is smoking electronic cigarettes now. Medications: Current Outpatient Prescriptions Medication Sig Dispense Refill ??? enoxaparin (LOVENOX) 60 mg/0.6 mL injection Inject 60 mg into the skin daily. 10 Syringe 0 ??? warfarin (COUMADIN) 5 mg tablet Take [...] 60 mg by mouth 4 times daily. last warfarin dose was 7.5 mg daily and INRs frequently between 1.5-2.0. Last INR 1.6 prior to interruption of Rx. Getting INRs with finger stick. Allergies: Patient is allergic to depacon and gabapentin. Physical Exam: Filed Vitals: 01/21/13 1312 BP: 117/82 Pulse: 92 Temp: 36.4 ??C (97.6 ??F) TempSrc: Tympanic Resp: 16 Height: 182.5 cm (71.85) Weight: 97.2 kg (214 lb 4.6 oz) Estimated Body mass index is 29.18 kg/(m^2) as calculated from the following: Height as of this encounter: 5' 11.85(1.825 m). Weight as of this encounter: 214 lb 4.6 oz(97.2 kg). Gen: Alert and oriented x3. No distress. Pulm: Clear to auscultation, No wheeze, good air movement throughout CV: Regular rate and rhythm, no murmurs, no carotid bruits Abd: Soft, non-tender, non-distended, no organomegatly, positive active bowel sounds, No rebound/guarding Labs: Thrombosis Panel Lab Results Component Value Date PROTIME 10.0 08/06/2012 INR 1.43 08/21/2012 PTT 33 08/06/2012 DDIMER 202 08/06/2012 ANTITHROM 128* 08/06/2012 [id number] 149* 08/06/2012 PROTCCLOT 124 08/06/2012 PROTSCLOT 98 08/06/2012 CARDIOLIGGC 5.27 08/06/2012 CARDIOLIGMC 4.23 08/06/2012 DRVVT 46.3* 08/06/2012 Factor V Leiden: heterozygote Prothrombin Gene: neg LA confirm: 1.62 Imaging: Brain MRI - neg EEG: nonspecific changes, possibly drug effect. Assessment: 36-year-old male with unprovoked symptomatic pulmonary embolism in December 2011 After initial treatment a thrombosis panel showed heterozygosity for Factor V Leiden and a positive confirming test for lupus anticoagulant, suggestive of possible antiphospholipid syndrome (APLS). This must be confirmed with serial testing 12+ weeks apart. His D-dimer was normal, which would otherwise indicate a lowrisk of recurrent PE or DVT. Anticoagulation was resumed in order to await confirmatory testing fora lupus anticoagulant, which is due now. He has been off warfarin for 2 weeks and had resumption ofhis neurologic symptoms. I wonder if these are a manifestation of APLS since they are not ischemic and are easily controlled with warfarin. With this diagnosis, if we confirm it, it is critical that his INRs be kept 2.0-3.0 and he tells me he is often <2.0. In addition, as APLS is a strong risk factor for VTE recurrence, this bolsters our initial decision to continue shelter anticoagulation. He is likely to have confirmation of APLS today and tells me he has been using finger stick INRs. This would be contraindicated with a lupus anticoagulant since this can cause interference with this methodology. Plan: - Check dilute viper venom time today. - Start Lovenox 60 mg daily tonight and warfarin tomorrow. 7.5 mg all days except 10 mg , Mon.Check INR with PCP next Monday when he is seeing him anyway and d/c lovenox when INR is >2.0 - No further INR with finger stick test. If his labs today are actually normal, I will let him and Dr. Winter know. - Request recent lab results from PCP. - Patient ed done on the nature of APLS and importance of excellent INR control with this condition. - Monitor for any return of neurologic symptoms. I am copying this note to Dr. Clifton to get his input on whether these are a manifestation of APLS. - Return in 4 months to see Cristina Marcus. We will request warfarin flow sheet the week before [place] progress. We will need to follow him watermelon inspector here. Please contact my office with questions/concerns. Dannielle Lucio MD, MSc media liaison officer Director, Thrombosis and Hemostasis Program 01/21/2013 12:59 Etienne Winter documented in this encounter Plan of Treatment Not on file documented as of this encounter Visit Diagnoses Diagnosis Antiphospholipid antibody positive- Primary Other and unspecified nonspecific immunological findings Other pulmonary embolism and infarction documented in this encounter Care Teams Candle Wrapper Relationship Specialty Start Date End Date Benny Winter MD PCP - General 06/21/12 07/01/15 documented as of this encounter
--- OUTSIDE RECORDS SUMMARY | 2024-09-16 15:28 | XMS_ITS | Encounter Summary ---
Author Organization [facility] Address [address] [place] [address] Care Team Providers Care Direct Marketing Manager Name Role Phone Lukas Cifuentes MD Primary Care Provider [phone] Reason for Referral * Radiology Services (Routine) - Closed Specialty Diagnoses / Procedures Referred By Contac t Referred To Contact Diagnoses Chronic hepatitis C without hepatic coma (HCC-CMS) Procedures RAD US ABDOMEN ONE ORGAN/QUADRANT Jarocho eKnnedy MD PhD [address] [address] Referral ID Status Reason Start Date Expiration Date Visits Re quested Visits Authorized [id number] Closed 07/03/2015 1 1 Reason for Visit * Reason Comments New Patient Visit hep c * Consult (Routine) - Closed Specialty Diagnoses / Procedures Referred By Contact Referred To Contact Gastroenterology and Hepatology Diagnoses Hep C w/o coma, chronic (HCC-CMS) Lukas Contreras MD [address] [address] Jarocho Kennedy MD PhD [address] [place] [phone] Referral ID Status Reason Start Date Expiration Date Visits Re quested Visits Authorized [id number] Closed 1 1 Encounter Details Date Type Department Care Team ([facility] st Contact Info) Description 07/03/2015 10:00 EDT Office Visit [facility] Gastroenterology - [facility] [address] [place], [place] [address] Jarocho Kennedy MD PhD 111 [facility], [address] [place] [phone] Chronic hepatitis C without hepatic coma (CMS-HCC) [...] Sign Reading Time Taken Comments Blood Pressure 118/88 07/03/2015 0940 EDT Pulse 72 07/03/2015 0940 EDT Temperature - - Respiratory Rate - - Oxygen Saturation - - Inhaled Oxygen Concentration - - Weight 101.2 kg (223 lb) 07/03/2015 0940 EDT Height 182.5 cm (5' 11.85) 07/03/2015 0940 EDT Body Mass Index 30.37 07/03/2015 0940 EDT documented in this encounter Functional Status [...] as of this encounter Discharge Diagnoses Diagnosis 070.54 VIR HEP NEC W/O COMA W HEP C CHRON[ICD-9-CM] documented in this encounter Progress Notes * Jarocho Kennedy MD - 07/03/2015 1132 EDT This office note has been dictated. documented in this encounter Consult Notes * Jarocho Kennedy MD - 07/03/[address] [facility] GASTROENTEROLOGY AND HEPATOLOGY CONSULTATION - 07/03/2015 Lukas Contreras MD [facility] [address] [place] [address] Contreras: Thank you for asking me to see your patient, Franky Solomon, in consultation today. As you know, he is a 39-year-old man with chronic hepatitis C. He was in his usual state of health in approximately 1994, when he experienced 2 weeks of jaundice. 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 With discontinuation of these agents, jaundice resolved. The patient resumed alcohol use and illegal drug use. Subsequently, he has had intermittent episodes of jaundice lasting up to the time that illegal drug and alcohol use were permanently discontinued in 2002. There have been no episodes of jaundice since, nor have there been other signs or symptoms of liver disease, including gastrointestinal bleeding or fluid retention. The diagnosis of hepatitis C was made serologically in 2004, and confirmation of hepatitis C viremia was made in April 2015. The results of viral genotyping are unknown. Past health is otherwise significant for hypercoagulable state with pulmonary embolism and seizures, mood disorder, and chronic back pain. A 12-point review of systems was taken, which was otherwise negative. Family history is negative for liver disease. The patient is disabled and lives with his son. He used injection drugs between 1997 and 2002. Adverse reactions to medications include DEPAKOTE and GABAPENTIN. Current medications include medical marijuana, clonazepam, warfarin, Remeron, Seroquel, and methadone. On physical examination, the patient was found to be an obese white man, weight 223 pounds (BMI 30.37), blood pressure 118/88, pulse 72. The skin revealed no spider angiomata. The sclerae were clear.The oropharynx was clear. The neck revealed no lymphadenopathy. The lungs were clear. Cardiac examination revealed a regular rhythm. The abdomen revealed no obvious ascites. It was soft, nontender, and no masses were appreciated. I could not palpate a liver or spleen. There was no pretibial edema. Laboratory data obtained today show white blood cell count 6.71, hematocrit 44.8, platelets 191, bilirubin less than 0.5, alkaline phosphatase 75, ALT 44, AST 37, albumin 4.7, creatinine 1.04. In summary, Mr Solomon has chronic hepatitis C, the duration of which is likely to be at least 15 years based upon the history. Although there is no clinical or biochemical evidence of cirrhosis, it would be important to screen for this. I will therefore arrange for a right upper quadrant abdominalultrasound, and I will be in touch with you and the patient when the results are available. If cirrhosis is identified, I will see the patient to discuss this at a specific office visit. Regardless of the ultrasound results, successful antiviral treatment will prevent the development of decompensated liver disease. The treatment of choice for hepatitis C is genotype dependent, and I will arrange for determination of this. Once the results of the ultrasound and viral genotype are available, I will request authorization for medications for hepatitis C treatment from the patient's health plan. Upon approval, I will schedule him to meet with my nursing and pharmacy staff to discussmedication administration and side effect management. At 4 weeks of treatment initiation, we will arrange for determination of serum hepatitis C viral RNA, and I plan to see the patient shortly thereafter to discuss the results. My only other recommendation is that you vaccinate the patient against hepatitis A and B if he has no serological evidence of immunity (I will test for this). I provided him with a brochure from the [employer], which includes its website (www.liverfoundation.org) for additional information. Thank you once again for allowing me to see this patient in consultation with you. Should you have any further questions regarding this evaluation, please feel free to contact me at any time. Sincerely, Jarocho Kennedy MD,PhD 11 30 AM - Jarocho Kennedy MD,PhD en Dictation ID: [id number] cc: Lukas Contreras MD, [address] [address] documented in this encounter Plan of Treatment Not on file documented as of this encounter Procedures Procedure Name Priority Date/Time Associated Diagnosis Comments RAD US ABDOMEN ONE ORGAN/QUADRANT Routine 07/24/2015 8:51 EDT Chronic hepatitis C without hepatic coma (CMS-HCC) documented in this encounter Results * RAD US ABDOMEN ONE ORGAN/QUADRANT (07/24/2015 8:51 EDT) Anatomical Region Laterality Modality Other 07/24/2015 8:51 EDT 07/24/2015 9:59 EDT Narrative 07/24/2015 9:59 EDT RAD US ABDOMEN ONE ORGAN/QUADRANT ??07/24/2015 8:51 AM Signs and Symptoms/Comments: ?? 070.54-Chronic hepatitis C without mention of hepatic cwsc-XPX-2-CM; hep C evaluate for cirrhosis Comparisons: ?? None available. Technique: Static, cine, and Doppler Ultrasound images of the RUQ were obtained. Findings: Pancreas: Visualized portions of the pancreatic body and head demonstrate no focal abnormality. Liver: The liver is normal in size with a somewhat echogenic echotexture.. ??Liver length ??measures 16.1 cm. ??No focal abnormality is seen. The intrahepatic biliary tree is normal in caliber. Right Kidney: Kidney is normal appearing. ??It measures 10.4 cm and shows no hydronephrosis or other abnormality Gallbladder: The gallbladder is normal in size. ?? Wall thickness is 1.4 mm. ??No gallstones or pericholecystic fluid collections are seen. ?? Common Duct: Normal ??diameter measuring ??4.8 mm Abdominal aorta: ??Proximal Aorta is within normal limits. IVC: Proximal IVC is within normal limits Impression: 1. No concerning hepatic mass lesion 2. Heterogeneous and increased echogenicity of the liver consistent with hepatocellular disease and/or infiltration. I have personally reviewed the images and the above interpretation and agree with the findings. Procedure Note David Ragland MD - 07/24/2015 RAD US ABDOMEN ONE ORGAN/QUADRANT 07/24/2015 8:51 AM Signs and Symptoms/Comments: 070.54-Chronic hepatitis C without mention of hepatic pnsk-WQT-6-CM; hep C evaluate for cirrhosis Comparisons: None available. Technique: Static, cine, and Doppler Ultrasound images of the RUQ were obtained. Findings: Pancreas: Visualized portions of the pancreatic body and head demonstrate no focal abnormality. Liver: The liver is normal in size with a somewhat echogenic echotexture.. Liver length measures 16.1 cm. No focal abnormality is seen. The intrahepatic biliary tree is normal in caliber. Right Kidney: Kidney is normal appearing. It measures 10.4 cm and shows no hydronephrosis or other abnormality Gallbladder: The gallbladder is normal in size. Wall thickness is 1.4 mm. No gallstones or pericholecystic fluid collections are seen. Common Duct: Normal diameter measuring 4.8 mm Abdominal aorta: Proximal Aorta is within normal limits. IVC: Proximal IVC is within normal limits Impression: 1. No concerning hepatic mass lesion 2. Heterogeneous and increased echogenicity of the liver consistent with hepatocellular disease and/or infiltration. I have personally reviewed the images and the above interpretation and agree with the findings. Jarocho Kennedy MD PhD IMG US ORDERABL ES * HCV RNA QUANT WITH REFLEX TO GENOTYPE (07/03/2015 10:28 EDT) [facility] HCV RNA Detect Quant 8,[id number] IU/mL 07/06/2015 15:00 EDT [facility] Comment: Reference Range: ??Undetected The quantification range of this assay is 15 IU/mL to 100,000,000 IU/mL. Testing was performed by the Long Ampliprep/Long TaqMan HCV v2.0 ([employer] Blood specimen (specimen) BLOOD SPECIMEN / Unknown 07/03/2015 10:28 EDT 07/03/2015 11:02 EDT Jarocho Kennedy MD PhD CHEMISTRY & BLO OD GAS ORDERABLES [facility] [address] [place] [address] * HEPATITIS B SURFACE ANTIBODY (07/03/2015 10:28 EDT) [facility] Hepatitis B Surface Ab Negative 07/03/2015 14:30 EDT [facility] Comment: Reference Range: Unvaccinated: ??Negative Vaccinated: ??Positive HBs Antibody, Quant <5.0 mIU/mL 07/03/2015 14:30 EDT [facility] Comment: Patient is presumed to not be immune to infection with HBV. Reference Range: Positive: >=12.0 mIU/mL Indeterminate: >=5.0 to <12.0 mIU/mL Negative: <5.0 mIU/mL Blood specimen (specimen) BLOOD SPECIMEN / Unknown 07/03/2015 10:28 EDT 07/03/2015 11:02 EDT Jarocho Kennedy MD PhD CHEMISTRY & BLO OD GAS ORDERABLES Performing Organization Address City/[facility] Co de Phone Number [facility] [address] [place] [address] * HEPATITIS A TOTAL ANTIBODY (07/03/2015 10:28 EDT) Hep A Antibody Negative 07/03/2015 14:30 EDT [facility] Comment:Reference Range: Neg ative Blood specimen (specimen) BLOOD SPECIMEN / Unknown 07/03/2015 10:28 EDT 07/03/2015 11:02 EDT Jarocho Kennedy MD PhD CHEMISTRY & BLO OD GAS ORDERABLES Performing Organization Address City/[facility]/ZIP Co de Phone Number [facility] [address] [place] [address] * HEPATITIS B SURFACE ANTIGEN (07/03/2015 10:28 EDT) Hepatitis B Surface Ag Negative 07/03/2015 14:30 EDT [facility] Comment:Reference Range: Neg ative Blood specimen (specimen) BLOOD SPECIMEN / Unknown 07/03/2015 10:28 EDT 07/03/2015 11:02 EDT Jarocho Kennedy MD PhD CHEMISTRY & BLO OD GAS ORDERABLES Performing Organization Address City/[facility]/ZIP Co de Phone Number [facility] [address] [place] [address] * (ABNORMAL) COMPREHENSIVE METABOLIC PANEL (CMP) (07/03/2015 10:28 EDT) Potassium 4.3 3.5 - 5.0 mEq/L 07/03/2015 11:44 [facility] Sodium 137 136 - 145 mEq/L 07/03/2015 11:44 [facility] Chloride 102 96 - 110 mEq/L 07/03/2015 11:44 [facility] CO2 23(L) 24 - 32 mEq/L 07/03/2015 11:44 [facility] Total Alkaline Phosphatase 75 38 - 126 U/L 07/03/2015 11:44 [facility] Bilirubin, Total <0.5 <1.4 mg/dl 07/03/20 15 11:44 [facility] AST 37 15 - 46 U/L 07/03/2015 11:44 [facility] ALT 44 21 - 72 U/L 07/03/2015 11:44 [facility] Albumin 4.7 3.4 - 4.9 g/dl 07/03/2015 11:44 [facility] Total Protein 7.6 6.3 - 8.2 g/dl 07/03/2015 11:44 [facility] Creatinine 1.04 0.66 - 1.25 mg/dl 07/03/2015 11:44 [facility] GFR, Calculated 90 >60 ml/min/1.7 3m2 07/03/2015 11:44 [facility] Comment: eGFR calculated using CKD-EPI equation for non Americans. Multiply eGFR by 1.16 for Americans. BUN 9(L) 10 - 26 mg/dl 07/03/2015 11:44 [facility] Calcium 9.5 8.5 - 10.5 mg/dl 07/03/2015 11:44 [facility] Calculated Calcium 9.2 8.5 - 10.5 mg/dl 07/03/2015 11:44 [facility] Glucose, Serum 81 70 - 100 mg/dl 07/03/2015 11:44 [facility] Fasting? Unknown 07/03/2015 11:08 [facility] Blood specimen (specimen) BLOOD SPECIMEN / Unknown 07/03/2015 10:28 EDT 07/03/2015 11:02 EDT Jarocho Kennedy MD PhD CHEMISTRY & BLO OD GAS ORDERABLES [facility] [address] [place] [address] * HEMAGRAM (07/03/2015 10:28 EDT) WBC 6.71 4.0 - 10.4 K/cmm 07/03/2015 11:18 EDT [facility] RBC 5.05 4.36 - 5.78 M/cmm 07/03/2015 11:18 [facility] Hemoglobin 15.5 13.8 - 17.3 gm/dl 07/03/2015 11:18 [facility] HCT 44.8 39.5 - 50.2 % 07/03/2015 11:18 [facility] MCV 89 81 - 95 fl 07/03/2015 11:18 [facility] MCH 30.6 27.6 - 33.0 pg 07/03/2015 11:18 [facility] MCHC 34.5 32.8 - 36.4 gm/dl 07/03/2015 11:18 [facility] RDW-CV 13.0 11.8 - 14.1 % 07/03/2015 11:18 [facility] RDW-SD 40.3 36.5 - 45.9 fl 07/03/2015 11:18 [facility] PLT 191 141 - 320 K/cmm 07/03/2015 11:18 [facility] MPV 8.6 7.5 - 11.2 fl 07/03/2015 11:18 [facility] Blood specimen (specimen) BLOOD SPECIMEN / Unknown 07/03/2015 10:28 EDT 07/03/2015 11:02 EDT Jarocho Kennedy MD PhD HEMATOLOGY & PF 4 ORDERABLES [facility] [address] [place] [address] documented in this encounter Visit Diagnoses Diagnosis Chronic hepatitis C without hepatic coma (HCC-CMS)- Primary Chronic hepatitis C without mention of hepatic coma documented in this encounter Discontinued Medications Medication Sig Discontinue Reason Start Date End Da te lithium carbonate 300 mg tablet Take 150 mg by mouth daily. Therapy completed 07/03/2015 morphine (MS CONTIN) 60 mg CR tablet Take 60 mg by mouth 4 times daily. Therapy completed 07/03/2015 documented as of this encounter Historical Medications * This list may reflect changes made after this encounter. Medication Sig Dispensed Refills Start Date End Date MEDICAL MARIJUANAIndications:Chron ic hepatitis C without hepatic coma (HCC-CMS) 0.5 g daily methadone (DOLOPHINE) 10 mg tabletIndications:Chronic hepatitis C without hepatic coma (HCC-CMS) Take 1 Tablet by mouth 2 times daily. added in this encounter Care Teams Direct Marketing Manager Relationship Specialty Start Date End Date Lukas Cifuentes MD PCP - General 07/02/15 03/03/16 documented as of this encounter
--- OUTSIDE RECORDS SUMMARY | 2024-09-16 15:28 | XMS_ITS | Encounter Summary ---
Author Organization [facility] Address [address] [place] [address] Care Team Providers Care Mop Machine Operator Name Role Phone Benny Winter MD Primary Care Provider Un available Encounter Details Date Type Department Care Team (Late st Contact Info) Description 07/24/2012 Orders Only [facility] Hematology & Oncology - [address] [address] Dannielle Lucio MD 111 [facility] [address] [place] [address] Primary hypercoagulable state (HCC-CMS) (Primary Dx) Social [...] state documented in this encounter Care Teams Mop Machine Operator Relationship Specialty Start Date End Date Benny Winter MD PCP - General 06/21/12 07/01/15 documented as of this encounter
--- OUTSIDE RECORDS SUMMARY | 2024-09-16 15:28 | XMS_ITS | Encounter Summary ---
Author Organization [facility] Address [address] [place] [address] Care Team Providers Care Account Retention Representative Name Role Phone Benny Winter MD Primary Care Provider Un available Lukas Cifuentes MD Primary Care Provider [phone] Lukas Contreras MD Primary Care Provider [phone] Nicole Velasquez MD Primary Care Provider [phone] Reason for Referral * (Routine/Next Available) - Closed Specialty Diagnoses / Procedures [facility] Referred To Contact Diagnoses Other pulmonary embolism and infarction Procedures SECONDARY READ CHEST CT Dannielle Lucio MD [address] [place] [phone] Referral ID Status Reason Start Date Expiration Date Visits Re quested Visits Authorized [id number] Closed 08/10/2012 1 1 Encounter Details Date Type Department Care Team (Late st Contact Info) Description 07/25/2012 Orders Only [facility] Hematology & Oncology - [address] [address] Dannielle Lucio MD [address] [place] [phone] Other pulmonary embolism and infarction (Primary Dx) Social History Tobacco Use Types [...] Procedure Name Priority Date/Time Associated Diagnosis Comments SECONDARY READ CHEST CT Routine 08/10/2012 13:31 EDT Other pulmonary embolism and infarction documented in this encounter Results * SECONDARY READ CHEST CT (08/10/2012 13:31 EDT) Anatomical Region Laterality Modality Other 08/10/2012 13:3 1 EDT 08/10/2012 14:39 EDT Narrative 08/10/2012 14:39 EDT SECONDARY READ CHEST ??Aug 10, 2012 01:31:00 PM Signs and Symptoms/Comments: ??415.19-OTHER PULMONARY EMBOLISM AND [id number]-5-CM; Routine/Other-Please Explain in the Next Question; SOB, ?[facility] IMAGES - [facility] - CT CHEST(ANGIOGRAPHY PULMONARY(PE) 01/14/12. Technique: This is an outside read performed at the request of Dr. Hernandez. The CT chest of interest was performed at [facility] on 01/14/2012 at 14: 25 and was performed for evaluation of the pulmonary arteries with IV contrast. Images were performed the clavicles through the lung bases and 3 ??millimeter axial images are available for review. Additional axial, coronal and sagittal 3 mm images as well as 10 mm images are available as well. Thereafter, there was a repeat CT of the chest performed on 07/02/2012 also performed at [facility] also tailored for evaluation of the pulmonary arteries. Findings: CT chest on 01/14/2012 demonstrates an isolated pulmonary embolus within an intersegmental pulmonary of the right upper lobe (# 35). There is mild dilatation of the involved pulmonary artery. This finding resolves on the subsequent exam on 07/02/2012. No additional emboli are appreciated on either study. The chest wall is normal. No enlarged mediastinal or hilar lymphadenopathy is present. The heart and pericardium are normal. Other than areas of atelectasis within the lingula, right middle lobe and dependent portions of the lungs, no additional abnormalities within the lung parenchyma are present. The visualized portions of the upper abdomen demonstrate hepatic steatosis. The upper abdomen is otherwise unremarkable. The bones are normal for age. Impression: 1. Intersegmental pulmonary embolus within the right upper lobe on 01/14/2012 which resolved on the subsequent followup study on 07/02/2012. 2. Hepatic steatosis. This exam is in agreement with the outside report. I have personally reviewed the images and the above interpretation and agree with the findings. Procedure Note Juanjo Myers MD - 08/10/2012 SECONDARY READ CHEST Aug 10, 2012 01:31:00 PM Signs and Symptoms/Comments: 415.19-OTHER PULMONARY EMBOLISM AND [id number]-2-CM; Routine/Other-Please Explain in the Next Question; SOB, ?[facility]EI IMAGES - [facility] - CT CHEST(ANGIOGRAPHY PULMONARY(PE) 01/14/12. Technique: This is an outside read performed at the request of Dr. Hernandez. The CT chest of interest was performed at [facility] on 01/14/2012 at 14: 25 and was performed for evaluation of the pulmonary arteries with IV contrast. Images were performed the clavicles through the lung bases and 3 millimeter axial images are available for review. Additional axial, coronal and sagittal 3 mm images as well as 10 mm images are available as well. Thereafter, there was a repeat CT of the chest performed on 07/02/2012 also performed at [facility] also tailored for evaluation of the pulmonary arteries. Findings: CT chest on 01/14/2012 demonstrates an isolated pulmonary embolus within an intersegmental pulmonary of the right upper lobe (# 35). There is mild dilatation of the involved pulmonary artery. This finding resolves on the subsequent exam on 07/02/2012. No additional emboli are appreciated on either study. The chest wall is normal. No enlarged mediastinal or hilar lymphadenopathy is present. The heart and pericardium are normal. Other than areas of atelectasis within the lingula, right middle lobe and dependent portions of the lungs, no additional abnormalities within the lung parenchyma are present. The visualized portions of the upper abdomen demonstrate hepatic steatosis. The upper abdomen is otherwise unremarkable. The bones are normal for age. Impression: 1. Intersegmental pulmonary embolus within the right upper lobe on 01/14/2012 which resolved on the subsequent followup study on 07/02/2012. 2. Hepatic steatosis. This exam is in agreement with the outside report. I have personally reviewed the images and the above interpretation and agree with the findings. Dannielle Lucio MD IMG OTHER IMAGING OR DERABLES documented in this encounter Visit Diagnoses Diagnosis Other pulmonary embolism and infarction- Primary documented in this encounter Care Teams Account Retention Representative Relationship Specialty Start Date End Date Benny Winter MD PCP - General 06/21/12 07/01/15 Lukas Cifuentes MD PCP - General 07/02/15 03/03/16 Lukas Contreras MD [address] [place] [id number] PCP - General 03/04/16 01/12/20 Nicole Velasquez MD [address] [id number] PCP - General 01/13/20 06/27/23 documented as of this encounter
--- OUTSIDE RECORDS SUMMARY | 2024-09-16 15:28 | XMS_ITS | Encounter Summary ---
Author Organization [facility] Address [address] [place] [address] Care Team Providers Care Steel Fabricating Supervisor Name Role Phone Benny Winter MD Primary Care Provider Un available Encounter Details Date Type Department Care Team (Late st Contact Info) Description 08/21/2012 Anti-coag visit [facility] Cancer Center Hematology & Oncology - [facility] [address] [place], [place] [id number] Divine Odom, RN [address] [place] [address] Social History Tobacco Use Types Packs/Day Years [...] of this encounter Progress Notes * Divine Odom, RN - 08/21/2012 1605 EDT Instructed to increase dose to 7.5mg Mon and Mon recheck INR on . Pt to remain on Lovenox. documented in this encounter Plan of Treatment Not on file documented as of this encounter Procedures Procedure Name Priority Date/Time Associated Diagnosis Comments PROTIME Routine 08/21/2012 documented in this encounter Results * PROTIME (08/21/2012) Protime, External [facility] INR, External 1.43 [facility] Blood specimen (specimen) Historical Provider HEMATOLOGY & PF4 ORDERABLES [facility] documented in this encounter Visit Diagnoses Not on filedocumented in this encounter Care Teams Steel Fabricating Supervisor Relationship Specialty Start Date End Date Benny Winter MD PCP - General 06/21/12 07/01/15 documented as of this encounter
--- OUTSIDE RECORDS SUMMARY | 2024-09-16 15:28 | XMS_ITS | Encounter Summary ---
Author Organization [facility] Address [address] [place] [address] Care Team Providers Care Shared Services Manager Name Role Phone Benny Winter MD Primary Care Provider Un available Reason for Visit * Reason Onset Date Comments Returning Call 09/17/2014 Becky returned m y call, states they would like follow- up with Dr. Lucio for they would like eval to stop anticoag, would like Dannielle's input on stopping Coumadin. Gave appointment on 09.29.14 @ 2pm with Dr. Lucio, Becky will tell patient. Encounter Details Date Type Department Care Team (Late st Contact Info) Description 09/17/[address] [facility] Cancer Center Hematology & Oncology - [facility] [address] [place], [place] [id number] Dannielle Lucio MD [address] [facility], [address] [place] [address] Returning Call (Becky returned my call, states they would like follow-up with Dr. Lucio for they would like eval to stop anticoag, would like Dannielle's input on stopping Coumadin. Gave appointment on 09.29.14 @ 2pm with Becky Hernandez will tell patient.) Social History Tobacco Use Types Packs/Day Years [...] Telephone Encounter - Renetta Bond - 09/17/2014 1612 EDT Becky returned my call, states they would like follow-up with Dr. Lucio for they would like eval to stop anticoag, would like Dannielle's input on stopping Coumadin. Gave appointment on 09.29.14 @ 2pm with Dr[address] Lucio, Becky will tell patient. documented in this encounter Plan of Treatment Not on file documented as of this encounter Visit Diagnoses Not on filedocumented in this encounter Care Teams Shared Services Manager Relationship Specialty Start Date End Date Benny Winter MD PCP - General 06/21/12 07/01/15 documented as of this encounter
--- OUTSIDE RECORDS SUMMARY | 2024-09-16 15:28 | XMS_ITS | Encounter Summary ---
Author Organization [facility] Address [address] [place] [address] Care Team Providers Care Oral Surgery Physician Name Role Phone Benny Winter MD Primary Care Provider Un available Lukas Cifuentes MD Primary Care Provider [phone] Lukas Contreras MD Primary Care Provider [phone] Nicole Velasquez MD Primary Care Provider [phone] Zofia Cruz MD Primary Care Provider [phone] Encounter Details Date Type Department Care Team (Late st Contact Info) Description 05/30/2013 Telephone [facility] Cancer Center Hematology & Oncology - [facility] [address] [place] [address] Cristina Marcus NP [address] [facility], [address] [place] [address] Social History Tobacco Use Types [...] on filedocumented in this encounter Care Teams Oral Surgery Physician Relationship Specialty Start Date End Date Benny Winter MD PCP - General 06/21/12 07/01/15 Lukas Cifuentes MD PCP - General 07/02/15 03/03/16 Lukas Contreras MD [address] [place] [id number] PCP - General 03/04/16 01/12/20 Nicole Velasquez MD [address] [address] PCP - General 01/13/20 06/27/23 Zofia Cruz MD [address] [place] [phone] PCP - General 06/28/23 documented as of this encounter
--- OUTSIDE RECORDS SUMMARY | 2024-09-16 15:28 | XMS_ITS | Encounter Summary ---
Author Organization [facility] Address [address] [place] [address] Care Team Providers Care Front End Manager Name Role Phone Benny Winter MD Primary Care Provider Un available Encounter Details Date Type Department Care Team (Late st Contact Info) Description 07/24/2012 Orders Only [facility] Cancer Center Hematology & Oncology - [facility] [address] [place], [place] [phone] Dannielle Lucio MD [address] [facility] [address] [place] [address] Social History Tobacco Use Types [...] on filedocumented in this encounter Care Teams Front End Manager Relationship Specialty Start Date End Date Benny Winter MD PCP - General 06/21/12 07/01/15 documented as of this encounter
--- OUTSIDE RECORDS SUMMARY | 2024-09-16 15:28 | XMS_ITS | Encounter Summary ---
Author Organization [facility] Address [address] [place] [address] Care Team Providers Care Color Mixer Name Role Phone Benny Winter MD Primary Care Provider Un available Encounter Details Date Type Department Care Team (Late st Contact Info) Description 12/18/2012 Orders Only [facility] Cancer Center Hematology & Oncology - [facility] [place] [address] [place], [place] [phone] Divine Odom, DANIELLE [address] [place] [address] Primary hypercoagulable state (HCC-CMS) (Primary Dx) Social [...] documented as of this encounter Results * DILUTE VIPER VENOM (01/21/2013 12:51 EST) Dilute Viper Venom 37.7 29.2 - 41.2 secs [facility] Comment: Results must be interpreted with caution if the patient is on oral anticoagulant, direct thrombin inhibitors or heparin. Blood specimen (specimen) 01/21/2013 12:51 EST 01/21/2013 13:14 EST Cristina Marcus JIG BORING MACHINE SET UP OPERATOR HEMATOLOGY & PF4 OR DERABLES [facility] [address] [place] [address] documented in this encounter Visit Diagnoses Diagnosis Primary hypercoagulable state ([facility])- Primary Primary hypercoagulable state documented in this encounter Care Teams Color Mixer Relationship Specialty Start Date End Date Benny Winter MD PCP - General 06/21/12 07/01/15 documented as of this encounter
--- OUTSIDE RECORDS SUMMARY | 2024-09-16 15:28 | XMS_ITS | Encounter Summary ---
Author Organization [facility] Address [address] [place] [address] Care Team Providers Care Formal Wear Rental Clerk Name Role Phone Benny Winter MD Primary Care Provider Un available Encounter Details Date Type Department Care Team (Late st Contact Info) Description 08/06/2012 Results Only [facility] Cancer Center Hematology & Oncology - [facility] [address] [place], [place] [phone] Cristina Marcus NP 111 [facility], [address] [place] [address] Social History Tobacco Use Types [...] Procedure Name Priority Date/Time Associated Diagnosis Comments LA CONFIRM TEST Routine 08/06/2012 9:25 EDT documented in this encounter Results * (ABNORMAL) LA CONFIRM TEST (08/06/2012 9:25 EDT) LA Confirm 28.6 28.2 - 35.6 secs [facility] LA Ratio 1.62(H) 0.97 - 1.24 [facility] LA Confirmation Interpretation Pos(A) Neg [facility] Comment: Results must be interpreted with caution if the patient is on oral anticoagulant, direct thrombin inhibitors or heparin. 08/06/2012 9:25 EDT 08/06/2012 9:46 EDT Cristina Rawlseayue FAMILY AND CONSUMER SCIENCES PROFESSOR HEMATOLOGY & PF4 OR DERABLES [facility] [address] [place] [address] documented in this encounter Visit Diagnoses Not on filedocumented in this encounter Care Teams Formal Wear Rental Clerk Relationship Specialty Start Date End Date Benny Winter MD PCP - General 06/21/12 07/01/15 documented as of this encounter
--- OUTSIDE RECORDS SUMMARY | 2024-09-16 15:28 | XMS_ITS | Encounter Summary ---
Author Organization [facility] Address [address] [place] [address] Care Team Providers Care Shirt Trimmer Name Role Phone Benny Winter MD Primary Care Provider Un available Encounter Details Date Type Department Care Team (Late st Contact Info) Description 01/21/2013 Phlebotomy Only [facility] [address] [place] [address] [facility], Outpatient Primary hypercoagulable state ([facility]) Social History Tobacco Use Types Packs/Day Years [...] Procedure Name Priority Date/Time Associated Diagnosis Comments DILUTE VIPER VENOM Routine 01/21/2013 12 :51 EST Primary hypercoagulable state ([facility]) documented in this encounter Results * DILUTE VIPER VENOM (01/21/2013 12:51 EST) Dilute Viper Venom 37.7 29.2 - 41.2 secs [facility] Comment: Results must be interpreted with caution if the patient is on oral anticoagulant, direct thrombin inhibitors or heparin. Blood specimen (specimen) 01/21/2013 12:51 EST 01/21/2013 13:14 EST Cristina Marcus MEDICAL DEVICE SALES CONSULTANT HEMATOLOGY & PF4 OR DERABLES [facility] [address] [place] [id number] documented in this encounter Visit Diagnoses Diagnosis Primary hypercoagulable state (HCC-CMS) Primary hypercoagulable state documented in this encounter Care Teams Shirt Trimmer Relationship Specialty Start Date End Date Benny Winter MD PCP - General 06/21/12 07/01/15 documented as of this encounter
--- OUTSIDE RECORDS SUMMARY | 2024-09-16 15:28 | XMS_ITS | Encounter Summary ---
Author Organization [facility] Address [address] [place] [address] Care Team Providers Care Market Research Worker Name Role Phone Benny Winter MD Primary Care Provider Un available Encounter Details Date Type Department Care Team (Latest Contact Info) Description 11/01/2012 8:09 EST - 11/01/2012 23:59 EST Hospital Encounter [facility] [place] [address] [place] [address] Benny Clifton MD [address] [place] [phone] Discharge Disposition: Home or Self Care Social [...] Code Departure Means Destination Home or Self [facility] documented in this encounter Plan of Treatment Not on file documented as of this encounter Procedures Procedure Name Priority Date/Time Associated Diagnosis Comments CREATININE, ISTAT Routine 11/01/2012 8:47 EST documented in this encounter Results * CREATININE, ISTAT (11/01/2012 8:47 EST) Creatinine, i-STAT 1.1 0.7 - 1.5 mg/dl [facility] [place] [id number] [facility] Comment:Test performed by [facility]. 11/01/2012 8:47 EST 11/01/2012 8:52 EST Provider Unknown MD POINT OF CARE TEST O RDERABLES Performing Organization Address City/State/[facility] Co de Phone Number [facility] [address] [place] [address] documented in this encounter Visit Diagnoses Not on filedocumented in this encounter Care Teams Market Research Worker Relationship Specialty Start Date End Date Benny Winter MD PCP - General 06/21/12 07/01/15 documented as of this encounter
--- OUTSIDE RECORDS SUMMARY | 2024-09-16 15:28 | XMS_ITS | Encounter Summary ---
Author Organization [facility] [place] [address] Care Team Providers Care Videogame Tester Name Role Phone Benny Winter MD Primary Care Provider [phone] Reason for Visit * Reason Comments Bilateral Hip Pain Bilateral Knee Pain Encounter Details Date Type Department Care Team (Late st Contact Info) Description 11/22/2011 2:45 PM EST Office [place] [address] Stephan Oliva MD [facility] [place] [address] Back pain (Primary Dx) Discharge Disposition: Home Social History Tobacco Use Types Packs/Day Years [...] Mass Index 19.13 11/22/2011 3:49 PM EST documented in this encounter Progress Notes * Stephan Oliva MD - 11/22/2011 4:40 PM EST Mr. Solomon is a 36-year-old gentleman seen today in the [facility] consultation from Dr. Winter. The patient is seen and evaluated for multiple complaints. These include pain at the low back, pain in the knees, pain in the hips. Symptoms began about eight months ago when he was driving, had the spontaneous onset of these symptoms. They vary. They are intermittent. At times, quite severe and at times mildly bothersome. He is better on Morphine, worse when leaning and bending. Review of systems is negative for GI, , constitutional symptoms. He has occasional buckling in the legs likely related to pain. Height is 6 feet, weight is 236 pounds. He has been out of work on disability due to bipolar depression disorder. HE HAS ALLERGIES AND REACTIONS TO NEURONTIN. He smokes half a pack of cigarettes per day. He drinks no alcohol. Family history includes diabetes, cancer, cardiac and spine problems, deep venous thrombosis, and arthritis. Pertinent findings today demonstrate a pleasant gentleman. He moves comfortably about the office. His gait and toe walking and heel walking are normal. He has pain to palpation in the low back. Sciatic notch is nontender. The lower extremity motor exam is normal. Sensation is intact. His reflexes are 2 at the knees and ankles. His straight leg raise test is negative. His MRI to my review demonstrates no evidence of any nerve root compression. Specific anatomic etiology of this gentleman's pain remains unclear. I see no indication for any surgical intervention. I recommended to continue with his medical management. Further evaluation in the Spine Center without neurological change should be with one of the medical providers. documented in this encounter Plan of Treatment Not on file documented as of this encounter Procedures Procedure Name Priority Date/Time Associated Diagnosis Comments MRI LUMBAR SPINE WITHOUT CONTRAST Routine 07/01/2011 XR LUMBAR SPINE MIN 4 VIEW Routine 06/27/2011 documented in this encounter Results * MRI lumbar spine without contrast (07/01/2011) Anatomical Region Laterality Modality L-spine Magnetic Resonan ce Scanning Provider IMG MRI ORDERABLES * XR lumbar spine minimum 4 view (06/27/2011) Anatomical Region Laterality Modality L-spine N/A Radiographic Irene ging Scanning Provider IMG DX ORDERABLES documented in this encounter Visit Diagnoses Diagnosis Back pain- Primary Backache, unspecified documented in this encounter Care Teams Videogame Tester Relationship Specialty Start Date End Date Benny Winter MD [address] [place] [address] PCP - General 11/11/11 10/30/18 documented as of this encounter
--- OUTSIDE RECORDS SUMMARY | 2024-09-16 15:28 | XMS_ITS | Encounter Summary ---
Author Organization [facility] Address [address] [place] [address] Care Team Providers Care Rug Dyer Helper Name Role Phone Benny Winter MD Primary Care Provider Un available Encounter Details Date Type Department Care Team (Late st Contact Info) Description 07/24/2012 Orders Only [facility] Cancer Center Hematology & Oncology - [facility] [address] [place], [place] [phone] Dannielle Crockett, RN [address] [place] [address] Primary hypercoagulable state (HCC-CMS) (Primary Dx) Social [...] state documented in this encounter Care Teams Rug Dyer Helper Relationship Specialty Start Date End Date Benny Winter MD PCP - General 06/21/12 07/01/15 documented as of this encounter
--- OUTSIDE RECORDS SUMMARY | 2024-09-16 15:28 | XMS_ITS | Encounter Summary ---
Author Organization 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 Primary hypercoagulable state ([facility]) Social History Tobacco Use Types Packs/Day Years [...] Procedure Name Priority Date/Time Associated Diagnosis Comments THROMBOSIS PANEL PATIENT NOT ON COUMADIN Routine 08/06/2012 9:25 EDT Primary hypercoagulable state ([facility]) PROTEIN S ACTIVITY Routine 08/06/2012 9: 25 EDT PROTHROMBIN [id number] MUTATION Routine 08/06/2012 9:25 EDT DILUTE VIPER VENOM Routine 08/06/2012 9: 25 EDT PHOSPHOLIPID ANTIBODY Routine 08/06/2012 9:25 EDT ZZFACTOR V LEIDEN MUTATION Routine 08/06/2012 9:25 EDT PTT Routine 08/06/2012 9:25 EDT PROTIME Routine 08/06/2012 9:25 EDT D-DIMER Routine 08/06/2012 9:25 EDT ANTITHROMBIN, FUNCTIONAL Routine 08/06/2012 9:25 EDT FACTOR 8 ASSAY Routine 08/06/2012 9:25 EDT PROTEIN C ACTIVITY Routine 08/06/2012 9: 25 EDT documented in this encounter Results * PROTEIN C ACTIVITY (08/06/2012 9:25 EDT) Protein C Clot 124 71 - 199 % [facility] Comment: a. ??Acquired Protein C deficiencies are associated with liver disease, oral anticoagulants, acute thrombotic events and DIC. b. ??Results may be affected by plasma heparin levels greater than 1.5 U/mL for UFH and 0.8 for LMWH. c. ??Results may be overestimated in the presence of direct thrombin inhibitors such as Hirudin (Refludan) and Argatroban (Novastan). d. ??Acute illness and/or thrombosis may influence test results in an unpredictable manner, therefore results should be interpreted with caution in this setting. 08/06/2012 9:25 EDT 08/06/2012 9:46 EDT Cristina Marcus [employer] HEMATOLOGY & PF4 OR DERABLES [facility] [address] [place] [address] * PROTEIN S ACTIVITY (08/06/2012 9:25 EDT) Pathologist [facility] Protein S Activity 98 66 - 132 % [facility] Comment: a. ??Acquired Protein S deficiencies are associated with oral anticoagulants, acute thrombotic events, , vitamin K deficiency, L-aspariginase treatment and inflammatory syndrome. Deficiencies may or may not be present with liver disease and DIC. b. ??Results may be affected by plasma heparin levels greater than 1.6U/mL for UFH or greater than 1.8 U/mL for LMWH. c. ??Results may be overestimated in the presence of direct thrombin inhibitors such as Hirudin (Refludan) and Argatroban (Novastan). d. ??Acute illness and/or thrombosis may influence test results in an unpredictable manner, therefore results should be interpreted with caution in this setting. e. ??Age and hormonal status may affect the normal range for females. 08/06/2012 9:25 EDT 08/06/2012 9:46 EDT Cristina Marcus NP HEMATOLOGY & PF4 OR DERABLES Performing Organization Address [facility] Co de Phone Number [facility]AN [facility] [address] [place] [address] * CARDIOLIPIN ANTIBODY (08/06/2012 9:25 EDT) Cardiolipin IgG 5.27 GPL TIFF [facility] Comment: IgG Negative <15 GPL Indeterminate 15 - <20 GPL Low to Medium Positive 20 - 80 GPL Strongly Positive >80 GPL The following results were obtained with the INOVA QUANTA Lite BREANA IgG and IgM III Keyana kits. Cardiolipin IgG & IgM values obtained with different residential driver's assay methods may not be used interchangeably. The magnitude of the reported IgG & IgM levels cannot be correlated to an endpoint titer. Cardiolipin IgM 4.23 MPL [facility] Comment: IgM Negative <12.5 MPL Indeterminate 12.5 - <20 MPL Low to Medium Positive 20 - 80 MPL Strongly Positive >80 MPL The following results were obtained with the INOVA QUANTA Lite BREANA IgG and IgM III Keyana kits. Cardiolipin IgG & IgM values obtained with different residential driver's assay methods may not be used interchangeably. The magnitude of the reported IgG & IgM levels cannot be correlated to an endpoint titer. 08/06/2012 9:25 EDT 08/06/2012 9:46 EDT Cristina Marcus NP IMMUNOLOGY AND SERO LOGY ORDERABLES Performing Organization Address [facility] Co de Phone Number MCCANN ALLEN [facility] [address] [place] [address] * PROTHROMBIN [id number] MUTATION (08/06/2012 9:25 EDT) [facility] Signature Prothrombin Mutation (Note) [facility] Comment: RESULT: The Prothrombin 88456R>A mutation was not detected. METHOD: The Prothrombin C70845N mutation (HGVS designation: F2 [id number]>A) is detected by amplification of DNA isolated from blood following by melt curve analysis INTERPRETATION: The Prothrombin I50700U mutation is not present. ?? A genetic cause of deep-vein thrombosis can not be excluded since there are many other disease causing mutations. As of November 20, 1998, [place] Act 160 prohibits release of genetic test results to third parties without the specific informed consent of the patient. TEST PERFORMED BY: [facility] [address] [place] [address] These results need to be interpreted in the context of the clinical presentation and the results of other laboratory tests. ??A consultation with a Production Control Expediter or Thrombosis Specialist may be of benefit for this individual and/or family to further discuss the implications of these findings. The results reported here are only as accurate as the identity of the sample received. ?? This test is not an FDA- approved test, however it is based on the use of analyte-specific reagents that do not require FDA approval. ?? This test was developed and its performance characteristics determined by [facility]. ??This laboratory is certified under the Clinical Laboratory Improvement Amendments of 1988 (CLIA) as qualified to perform high complexity clinical laboratory testing. ??A [place] statute prevents our laboratory from releasing these results to anyone other than the person who has been tested and the referring clinician without the prior written consent of the person tested. Dannielle ??Chivo Boss MD Clinical Director Diagnosis Code: ??289.81 08/06/2012 9:25 EDT 08/06/2012 9:46 EDT Cristina Marcus NP PACKAGES & DNA PROB E ORDERABLES [facility] [address] [place] [address] * FACTOR V LEIDEN (08/06/2012 9:25 EDT) Pathologist [facility] Factor V Leiden (Note) TIFF [facility] Comment: RESULT: One copy of the Factor V Leiden mutation was detected (heterozygous for this mutation). METHOD: The Factor V Leiden mutation (R506Q, HGVS designation: F5 [id number] G>A [id number]) ??is detected by amplification of DNA isolated from blood following by melt curve analysis INTERPRETATION: Individuals with one copy of the Factor V Leiden mutation (heterozygous) may have a 3-8-fold increased risk for deep-vein thrombosis, especially when other genetic or environmental factors are present. Factor V Leiden mutation is also associated with recurrent loss, and possibly preeclampsia and growth retardation. TEST PERFORMED BY: [facility] [address] [facility], [address] [place] [address] These results need to be interpreted in the context of the clinical presentation and the results of other laboratory tests. ??A consultation with a Production Control Expediter or Thrombosis Specialist may be of benefit for this individual and/or family to further discuss the implications of these findings. The results reported here are only as accurate as the identity of the sample received. ?? This test is not an FDA- approved test, however it is based on the use of analyte-specific reagents that do not require FDA approval. ?? This test was developed and its performance characteristics determined by [facility]. ??This laboratory is certified under the Clinical Laboratory Improvement Amendments of 1988 (CLIA) as qualified to perform high complexity clinical laboratory testing. ??A [place] statute prevents our laboratory from releasing these results to anyone other than the person who has been tested and the referring clinician without the prior written consent of the person tested. Dannielle ??Chivo Boss MD Clinical Director Diagnosis Code: ??289.81 08/06/2012 9:25 EDT 08/06/2012 9:46 EDT Cristina Marcus NP PACKAGES & DNA PROB E ORDERABLES [facility] [address] [place] [address] * (ABNORMAL) DILUTE VIPER VENOM (08/06/2012 9:25 EDT) Pathologist [facility] Dilute Viper Venom 46.3(H) 29.2 - 41.2 secs [facility] Comment: Results must be interpreted with caution if the patient is on oral anticoagulant, direct thrombin inhibitors or heparin. Interpretation of a prolonged DVV result is incomplete without comparison to the LA confirm result. 08/06/2012 9:25 EDT 08/06/2012 9:46 EDT Cristina Henry Parenteau [employer] HEMATOLOGY & PF4 OR DERABLES Performing Organization Address [facility] de Phone Number [facility] [address] [place] [address] * (ABNORMAL) ANTITHROMBIN, FUNCTIONAL (08/06/2012 9:25 EDT) Antithrombin, Funct. 128(H) 85 - 125 % [facility] Comment: CAUTION: Antithrombin III levels can be INCREASED by coumadin and DECREASED by heparin. Results must be interpreted with caution for patients on these drugs. Results may be overestimated in the presence of direct thrombin inhibitors such as Hirudin (Refludan) and Argatroban (Novastan). Acute illness and/or thrombosis may influence test results in an unpredictable manner, therefore results should be interpreted with caution in this setting. 08/06/2012 9:25 EDT 08/06/2012 9:46 EDT Cristina Rawlseau [employer] HEMATOLOGY & PF4 OR DERABLES Performing Organization Address [facility] Phone Number [facility] [address] [place] [address] * (ABNORMAL) FACTOR 8 ASSAY (08/06/2012 9:25 EDT) Factor 8 Assay 149(H) 53 - 143 % [facility] Comment:Patient is not on He nancy 08/06/2012 9:25 EDT 08/06/2012 9:46 EDT Cristina A Parenteau [employer] HEMATOLOGY & PF4 OR DERABLES Performing Organization Address [facility] de Phone Number [facility] [address] [place] [address] * PTT (08/06/2012 9:25 EDT) PTT 33 26 - 37 secs [facility] Comment:Therapeutic Heparin range: 65-100 seconds 08/06/2012 9:25 EDT 08/06/2012 9:46 EDT Cristina A Parenteau [employer] HEMATOLOGY & PF4 OR DERABLES Performing Organization Address [facility] de Phone Number [facility] [address] [place] [address] * D-DIMER (08/06/2012 9:25 EDT) D-Dimer 202 <230 ng/mL [facility] Comment:CUTOFF VALUE FOR THE EXCLUSION OF DVT and PE: 230 ng/mL D-dimer units 08/06/2012 9:25 EDT 08/06/2012 9:46 EDT Cristina Rawlseau [employer] HEMATOLOGY & PF4 OR DERABLES Performing Organization Address [facility] Phone Number [facility] [address] [place] [address] * PROTIME (08/06/2012 9:25 EDT) Pro Time 10.0 9.5 - 13.1 secs [facility] I.N.R. 0.9 0.9 - 1.1 Ratio [facility] Comment: Moderate Intensity Coumadin INR = 2.0-3.0 Adjustments in anticoagulant therapy dose should be based upon the INR and NOT the Pro Time. 08/06/2012 9:25 EDT 08/06/2012 9:46 EDT Cristina A Parenteau [employer] HEMATOLOGY & PF4 OR DERABLES Performing Organization Address [facility] de Phone Number [facility] [address] [place] [address] documented in this encounter Visit Diagnoses Diagnosis Primary hypercoagulable state (HCC-CMS) Primary hypercoagulable state documented in this encounter Care Teams Statement Request Clerk Relationship Specialty Start Date End Date Benny Winter MD PCP - General 06/21/12 07/01/15 documented as of this encounter
--- OUTSIDE RECORDS SUMMARY | 2024-09-16 15:28 | XMS_ITS | Encounter Summary ---
Author Organization [facility] Address [facility] [place] [address] Care Team Providers Care Retail Sales Clerk Name Role Phone Benny Winter MD Primary Care Provider [phone] Encounter Details Date Type Department Care Team (Late st Contact Info) Description 11/22/2011 2:04 PM EST - 11/22/2011 11:[address] [facility] Hospital Encounter XRay at [address] [place] [address] Social History Tobacco Use Types Packs/Day Years Used Date Smoking Tobacco: Every Day Cigarettes Sex and Gender Information Value Date Recorded Sex Assigned at Not on file Gender Identity Not on file Sexual Orientation Not on file documented as of this encounter Medications at Time of Discharge Medication Sig Dispensed Refills Start Date End Date clonAZEpam (KLONOPIN) 1 mg tablet Take 2 mg by mouth 3 times daily as needed. QUEtiapine (SEROQUEL) 100 mg tablet Take 100 mg by mouth daily. lithium 150 mg capsule Take 150 mg by mouth daily. mirtazapine (REMERON) 45 mg tablet Take 45 mg by mouth nightly. morphine (MS CONTIN) 60 mg 12 hr tablet Take 60 mg by mouth 3 times daily. documented as of this encounter Plan of Treatment Not on file documented as of this encounter Visit Diagnoses Not on filedocumented in this encounter Care Teams Retail Sales Clerk Relationship Specialty Start Date End Date Benny Winter MD [address] [place] [address] PCP - General 11/11/11 10/30/18 documented as of this encounter
--- OUTSIDE RECORDS SUMMARY | 2024-09-16 15:29 | XMS_ITS ---
Author Organization Unknown Address [address] [place] [phone] Phone Care Team Providers Care Partner Alliance Manager Name Role Phone MARY KATE FABY Registered Nurse Unavailable EDDA Amador Attending Unavailable SUNNYRULA WALKER Primary Unavailable UNLISTED PROVIDER - REQUESTED Xhandoff Un available Results PT PROTHROMBIN TIME* - Colle ct Date/Time: 01/04/2023 14:52 [facility] ID: [id number] - [id number] [address] [place], [place], [address] LOINC: 5902-2 Test Value Unit Reference Range Code Code System Flag PROTIME 17.8 seconds L=9.3 H=11.4 5902-2 LOINC H INR 1.85 L=2.00 H=3.00 02109-2 LOINC L US DVT UNI RT* - Completed: 01/04/2023 16:16 LOINC: [facility] RADIOLOGY [place], [place] [address] PACS [employer]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 Code Code System Body Mass Index 23.06 kg/m2 01/04/2023 14:43 Initial 38312 -5 LOINC Systolic Blood Pressure 150 mm[Hg] [...] 8302- 2 LOINC O2 Saturation 97 % 2022 16:48 Most Recent 01108 -5 LOINC O2 Saturation 98 % 2022 14:43 Initial 00171 -5 LOINC Pulse 90.0 /min 01/04/2023 16:48 [...] 77.11 kg 170.00 lbs 01/04/2023 14:43 Initial 66936 -7 LOINC Assessment You had the following [...] Code Code System DVT OF ARM active 266165149 SNOMED-CT PULMONARY EMBOLISM active 33557569 S NOMED-CT Allergies and Adverse Reactions Allergy Substance Reaction Severity Start Date Concern Status Co de Code System GABAPENTIN Hives (SNOMED-CT: 531131052) Moderate Active 53774 RxNorm Plan of Treatment No Data Found Encounters Encounter Diagnosis Start Date Code Code Sys tem Pain in right arm 01/04/2023 SNOMED-CT Personal Care Team Section Performer Name Performer Role Active Date Inactive Da te
--- OUTSIDE RECORDS SUMMARY | 2024-09-16 15:29 | XMS_ITS ---
Author Organization Unknown Address [address] [place] [phone] Phone Care Team Providers Care Talk Show Host Name Role Phone MIA DENISE Attending Unavailable Social History Type Status Start Date End Date Code Code Syst em Smoking History Current every day smoker 874797815 SNOMED CT Sex Male Assessment You had [...] Code Code System DVT OF ARM active 985828004 SNOMED-CT PULMONARY EMBOLISM active 64960412 S NOMED-CT Allergies and Adverse Reactions Allergy Substance Reaction Severity Start Date Concern Status Co de Code System GABAPENTIN Hives (SNOMED-CT: 621891845) Moderate Active 07709 RxNorm Plan of Treatment No Data Found Personal Care Team Section Performer Name Performer Role Active Date Inactive Da te
[2024-09-16 21:16] LABS: Prothrombin Time 35.7 sec (9.1-11.1)
== END 2024-09-16 15:23 | disposition home or self-care (01) ==
LOC: NCHCN 15:22
PROVIDERS: PCP Family Medicine; Referring Provider Family Medicine; Visit Provider Family Medicine
DX: D68.51 Activated protein C resistance (principal)
CPT/HCPCS: 85610

== ENCOUNTER 2025-05-09 15:06 | Outpatient (REF) | payer MEDICARE, MEDICAID, SELFPAY ==
--- NOTE | 2025-05-09 11:00 | SKI_PTH ---
PATIENT: Franky Solomon LOC: [facility] U#:[id number] AGE/SX: 49/M ROOM: RE05/09/[address]: Zofia Cruz : 1975 BED: DIS: 05/09/2025 SPEC #: [id number] RECD: 05/09/25 16:40 STATUS: NILAM REQ #: [id number] SHERICE: 05/09/25 11:[address]: Zofia Cruz DEPT: Surgical Specimen RECD BY: Sierra Sagastume ENTERED: 05/09/25 16:41 SP TYPE: ISMAEL PHAN DR: Lukas Contreras Tissues: 1 - SKIN BIOPSY(SHAVE/PUNCH) Procedures: SKIN LEVEL 4 Comments:
== END 2025-05-09 15:07 | disposition home or self-care (01) ==
LOC: NCHCN 15:06
PROVIDERS: PCP Family Medicine; Visit Provider Family Medicine
DX: L30.8 Other specified dermatitis (principal); L28.2 Other prurigo
CPT/HCPCS: 88305

== ENCOUNTER 2025-06-13 10:07 | Emergency (ER) | payer MEDICARE, MEDICAID, SELFPAY ==
[2025-06-13 10:10] VITALS: BP 160/99; PULSE 42; RESP 12; TEMP 36.7; O2SAT 98
--- NOTE | 2025-06-13 10:15 | DI.US_ITS ---
Exam(s) US LOWER EXTREMITY VENOUS RT EXAM: US LOWER EXTREMITY VENOUS RT CLINICAL HISTORY: hx of coagulopathy, focal swell/pain calf. TECHNIQUE: Lower extremity venous ultrasound performed using grayscale, color- flow, and spectral Doppler analysis. COMPARISON: No exams were available for comparison FINDINGS: The common femoral, femoral and popliteal veins demonstrate normal compressibility, augmentation, and color Doppler. The posterior tibial and peroneal veins are patent. No saphenous vein thrombosis or other superficial venous thrombosis is seen. No hematoma or Conway's cyst is seen. The palpable abnormality corresponds to a 6 millimeter focal hypoechoic area in the subcutaneous fat IMPRESSION: 6 millimeter focal low-density collection in the subcutaneous fat may represent a sebaceous cyst or epidermal inclusion cyst. DATA REPOSITORY:
--- NOTE | 2025-06-13 10:25 | W.ED.GENAD ---
Discharge Plan Disposition Patient Disposition: Home Condition: Good Discharge Details Clinical Impression: Ecchymosis Primary Care Provider: Lukas Contreras ED Provider: Yaima Rowell Home Meds and New Rx's Prescriptions: Continued warfarin 10 mg tablet 10 mg PO DAILY losartan 100 mg tablet 100 mg PO DAILY Discharge Instructions Additional Instructions: Ultrasound is reassuring here today. As we discussed, they were questioning if this could potentially be a cyst. However, with the area of bruising I am questioning if this may be a small hematoma after small trauma, particularly as you do have more ready bruising given your blood thinners. Please continue with Tylenol as needed for discomfort. Elevate the leg to help with any discomfort. You may also try compression hose to help prevent DVTs and blood pooling in the future. Please discuss this further with your primary care. Please follow-up with your primary care in 1 to 2 weeks for reevaluation. Monitor the areas for signs of infection including redness, warmth, drainage, pain. If you develop these or any other new/worsening symptoms please seek care urgently once again. Referrals: Lukas Contreras [Primary Care Provider, Medicine] Discharge Data Discharge Date/Time-TO BE ENTERED AT DEPARTURE: 06/13/25 11:19 HPI General Date/Time Provider Initiated Documentation: 06/13/25 10:17. Limitations to Documentation: no limitations. Information obtained by: patient and RN notes reviewed. History of Present Illness 49 year old M presents to the emergency department with the chief complaint of right calf pain, focal area of swelling, concern for DVT, described as moderate, Patient started experiencing this day(s) (1) and it has been constant. No relieving factors improve symptom(s), No exacerbating factors reported . Patient notes no other symptoms.. Patient did receive the following treatments prior to arrival, none Related Data Home Medications ?Medication ?Instructions ?Recorded ?Confirmed losartan 100 mg tablet 100 mg PO DAILY 06/13/25 06/13/25 warfarin 10 mg tablet 10 mg PO DAILY 06/13/25 06/13/25 Allergies Allergy/AdvReac Type Severity Reaction Status Date / Time gabapentin AdvReac Intermediate Other (See Verified 06/13/25 10:12 Comment) General Stated Complaint: Vascular IAN: 3 Review of Systems Constitutional Constitutional: Reports as per HPI, Denies chills, Denies fever(s) and Denies weakness Cardiovascular Cardiovascular: Reports as per HPI, Denies chest pain and Denies dyspnea Respiratory Respiratory: Reports as per HPI, Denies cough and Denies dyspnea Musculoskeletal Musculoskeletal: Reports as per HPI Integumentary/Breasts Skin/Breast: Reports as per HPI, Denies rash and Denies wounds Neurologic Neurologic: Reports as per HPI, Reports paresthesias (had brief period of tingling yesterday in the right foot, none today) and Denies weakness Exam Const General: cooperative, healthy appearing, comfortable, no acute distress, well developed and well groomed Nutritional Appearance: average body habitus and well nourished Orientation: alert and awake Resp Effort & Inspection: normal respiratory effort, able to speak in complete sentences and no respiratory distress Cardio Rate: regular rate Rhythm: regular rhythm Skin General skin exam: ecchymosis Neuro General: patient alert and patient awake Cognition: normal cognition Speech: speech normal Gait: normal gait Motor: muscle tone normal throughout Sensory Exam: no sensory deficits noted Extrem Upper/lower leg/hip images:  1. Patient has a focal 2 cm in diameter ecchymotic area that does feel slightly tense. Tender to palpation. No surrounding erythema, warmth no break in the skin. Negative Homans' sign. No appreciable swelling compared to the contralateral side. He does have 2+ distal pulses. Sensation is intact. No palpable cord extending from this area. Course Vital Signs Vital signs: Vital Signs Temperature 36.7 C 06/13/25 10:10 Pulse 42 L 06/13/25 10:10 Respiratory Rate 12 06/13/25 10:10 Blood Pressure 160/99 H 06/13/25 10:10 Pulse Oximetry 98 06/13/25 10:10 Temperature 36.7 C 06/13/25 10:10 Temperature Source Oral 06/13/25 10:10 Pulse 42 L 06/13/25 10:10 Respiratory Rate 12 06/13/25 10:10 Blood Pressure 160/99 H 06/13/25 10:10 Blood Pressure Position Sitting 06/13/25 10:10 Pulse Oximetry 98 06/13/25 10:10 Oxygen Delivery Method Room Air 06/13/25 10:10 Oxygen Flow Rate 0 06/13/25 10:10 Medical Decision Making Patient is a pleasant 49-year-old gentleman with past medical history significant for factor V Leiden as well as few other coagulopathies for which he is anticoagulant on warfarin, presenting today with chief complaint of right calf focal area of swelling discomfort. He reports that he begins noting this area yesterday. No change since then. 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 He did have his INR checked earlier this week, was 1.7 at that point was recommended to do 2 days of 12 mg of warfarin and then resume his 10 mg daily dosing. He reports that he has been having readjustments for several years, last significant DVT or PE was many years ago. Patient is an active smoker. No recent period of being sedentary. No known trauma. Patient denies any shortness of breath or chest pain. He reports that for the past 15 years he will intermittently get sudden onset of chest discomfort, headache, global numbness that lasts a limited bit of time and then suddenly resolves. No recent change in these atypical symptoms, he has been followed by his primary care for these issues. On exam, patient appears nontoxic. He is bradycardic but patient reports that he has been adjusting medications for his blood pressure, unclear if this is associated. Blood pressure was slightly elevated but patient is also anxious regarding recurrent DVT and uncomfortable. Exam of the right lower extremity significant for a 2 cm circular area that feels slightly firm and tender the patient appears ecchymotic. No palpable cord from this, no significant swelling to the calf. He has 2+ distal pulses as well as intact sensation. His vital signs and report of his symptoms are not consistent or concerning for PE at this point. Will obtain a DVT US study for further evaluation. FINDINGS: The common femoral, femoral and popliteal veins demonstrate normal compressibility, augmentation, and color Doppler. The posterior tibial and peroneal veins are patent. No saphenous vein thrombosis or other superficial venous thrombosis is seen. No hematoma or Conway's cyst is seen. The palpable abnormality corresponds to a 6 millimeter focal hypoechoic area in the subcutaneous fat IMPRESSION: 6 millimeter focal low-density collection in the subcutaneous fat may represent a sebaceous cyst or epidermal inclusion cyst. Discussed with patient- clincial exam is more consistent with focal ecchymosis and hematoma. This is small, no evidence of infeciton. Discussed supportive care. Encouraged compression, elevation, monitoring of sxs. Encoaurged f/u with PCP. All of their questions and concerns were addressed, they are in agreement wiht this plan. now at bedside. Dictation completed using [employer] dictation software. Please excuse any errors or commutator undercutter anomalies that may remain. PFSH All Active Problems (Updated 06/13/25 @ 11:14 by COLTEN Buchanan) Ecchymosis (Acute) Social History Smoking/Tobacco Use Status: Current every day Tobacco Type: cigarettes Smoking risk assessment performed?: Yes Alcohol Intake: never Drug use: Never Substance use type: does not use Do you feel safe at home: Yes Do you feel safe in your relationship?: Yes
== END 2025-06-13 11:19 | disposition home or self-care (01) ==
LOC: ER 11:22
PROVIDERS: Emergency Provider Physician Assistant; PCP Family Medicine
DX: R23.3 Spontaneous ecchymoses (principal); R22.41 Localized swelling, mass and lump, right lower limb
CPT/HCPCS: 99284; 93971; 99283

== ENCOUNTER 2025-06-19 18:28 | Outpatient (REF) | payer MEDICARE, MEDICAID, SELFPAY ==
[2025-06-19 22:27] LABS: INR > 9.8 (0.9-1.1)
== END 2025-06-19 18:29 | disposition home or self-care (01) ==
LOC: NCHCN 18:28
PROVIDERS: PCP Family Medicine; Visit Provider Family Medicine
DX: Z79.01 Long term (current) use of anticoagulants (principal)
CPT/HCPCS: 85610

== ENCOUNTER 2025-08-20 21:13 | Outpatient (REF) | payer MEDICARE, MEDICAID, SELFPAY ==
[2025-08-20 21:45] LABS: HCT 38.8 % (40.0-50.0); HGB 13.0 g/dL (13.5-17.5); MCH 29.6 pg (27.0-33.0); MCHC 33.5 % (32.0-36.0); MCV 88 fL (80-95); MPV 10.2 fL (8.0-11.0); Platelet Count 272 10^3/uL (130-400); RBC 4.39 10^6/uL (4.36-5.78); RDW 12.6 % (11.8-14.1); RDW-SD 41.2 fL; WBC 6.71 10^3/uL (4.4-10.8)
[2025-08-20 22:06] LABS: ALT 32 U/L (16-63); AST 27 U/L (15-37); Albumin 4.3 g/dL (3.4-5.0); Alkaline Phosphatase 93 U/L (46-116); Anion Gap 7.8 mmol/L (3-11); BUN 10 mg/dL (7-18); Bilirubin, Total 0.3 mg/dL (0.2-1.0); CO2 30.2 mmol/L (21.0-32.0); Calcium 9.3 mg/dL (8.5-10.1); Chloride 103 mmol/L (98-107); Estimated GFR 82.29 (mL/min/1.73m2); Glucose 84 mg/dL (74-106); Potassium 4.4 mmol/L (3.5-5.1); Sodium 141 mmol/L (136-145); Total Protein 7.8 g/dL (6.4-8.2)
[2025-08-20 22:28] LABS: Calculated LDL 125 mg/dL (<100); Cholesterol 194 mg/dL (<200); HDL Cholesterol 48 mg/dL (>or=40); Triglyceride 109 mg/dL (<150)
== END 2025-08-20 21:14 | disposition home or self-care (01) ==
LOC: NCHCN 21:13
PROVIDERS: PCP Family Medicine; Visit Provider Family Medicine
DX: I10 Essential (primary) hypertension (principal); Z79.01 Long term (current) use of anticoagulants
CPT/HCPCS: 80053; 80061; 85027